=== PATIENT | male | born 1945 | race Caucasian/White ===

== ENCOUNTER 2016-08-26 11:38 | Day surgery (SDC) | payer MEDICARE, BC ==
[~2016-08-26 11:38] MED LIST: CLINDAMYCIN PHOSPHATE 300 MG in DEXTROSE 5 % IN WATER 50 ML IV PRN; RINGERS SOLUTION,LACTATED 1,000 ML IV PRN
--- OUTSIDE RECORDS SUMMARY | 2016-08-26 11:42 | XMS REPORT | Continuity of Care Document ---
:1945 Author Organization [facility] ([facility]) Address [address] [place] [address] Phone [phone] Care Team Providers Name Role Phone Unavailable Primary Care Provider Unavailable Source Comments This disclosure is being made pursuant to the Care Everywhere program, applicable federal and state laws, and may not contain all informaitonavailable regarding this patient.[facility] ([facility]) Active Allergies and Adverse Reactions Not on File Current Medications Not on file Active Problems Not on file Social History Tobacco Use Types Packs/Day Years Used Date Never Assessed Plan of Care Health Maintenance Due Date Last Done Comments Hepatitis B Vaccine (1 of 3 - Primary Series) 1945 Tdap Vaccine 1955 Lipid Disorder Screening 1962 Td Vaccine 1962 Colonoscopy 1994 Prostate Cancer Screening 1994 Zoster Vaccine 2004 Pneumococcal Vaccine (1 of 2 - PCV13) 2009 Influenza Vaccine: Seasonal (#1) 12/10/2015 Results from Last 3 Months Not on file
[2016-08-26] MEDS ORDERED: RINGERS SOLUTION,LACTATED 1,000 ML IV ONE ×2 (12:08→14:30)
[2016-08-26] MEDS ORDERED: DEXAMETHASONE SOD PHOSPHATE 4 MG/ML VIAL IJ ONE (13:10)
[2016-08-26] MEDS ORDERED: BUPIVACAINE HCL 50 ML VIAL IJ ONE (13:10)
[2016-08-26] MEDS ORDERED: BUPIVACAINE HCL/EPINEPHRINE 50 ML VIAL IJ ONE (13:10)
[2016-08-26] MEDS ORDERED: HYDROcodone/ACETAMINOPHEN 1 EACH TABLET PO PRN (14:45)
[2016-08-26] MEDS ORDERED: PROCHLORPERAZINE EDISYLATE 5 MG/ML VIAL IM PRN (14:45)
[2016-08-26 15:26] VITALS: BP 126/62
== END 2016-08-26 11:39 | disposition home or self-care (01) ==
LOC: AMB 11:38
PROVIDERS: ATTEND Podiatrist
PROC: 0QBP0ZZ Excision of Left Metatarsal, Open Approach (ICD-10-PCS; principal; 2016-08-26 13:00)
DX: M21.622 Bunionette of left foot (principal); I10 Essential (primary) hypertension; K50.90 Crohn's disease, unspecified, without complications; L40.9 Psoriasis, unspecified; Z87.891 Personal history of nicotine dependence; Z68.37 Body mass index [BMI] 37.0-37.9, adult

== ENCOUNTER 2018-12-20 06:16 | Inpatient (IN) ==
--- NOTE | 2018-12-01 14:19 | ANES ---
Anesthesia Pre Procedure Eval HOME MEDICATIONS alprazolam 0.25 mg tablet 0.25 mg PO DAILY PRN #30 tab 12/09/17 [Last Taken Unknown] metoprolol tartrate 25 mg tablet 25 mg PO BID 30 Days #60 tab 12/09/17 [Last Taken Unknown] warfarin 2 mg tablet 4 mg PO DAILY 90 Days #180 tab 12/09/17 [Last Taken 04/26/18 08:00] allopurinol 300 mg tablet 300 mg PO DAILY #90 tab 09/27/18 [Last Taken Unknown] enalapril 10 mg-hydrochlorothiazide 25 mg tablet 1 tab PO DAILY #90 tab 09/27/18 [Last Taken Unknown] omeprazole 40 mg capsule,delayed release 40 mg PO DAILY PRN #90 cap 10/07/18 [Last Taken Unknown] mesalamine ER 0.375 gram capsule,extended release 24 hr 0.75 g PO BID 90 Days #360 cap 10/27/18 [Last Taken Unknown] escitalopram 10 mg tablet 10 mg PO DAILY #30 tab 11/16/18 [Last Taken Unknown] Allergies/Adverse Reactions: Allergies Allergy/AdvReac Type Severity Reaction Status Date / Time Penicillins Allergy Intermediate SWOLLEN Verified 11/30/18 13:01 LIPS, HIVES caffeine AdvReac Mild Diarrhea Verified 11/30/18 13:01 - Planned Procedure Planned Procedure: Left TKA 12/20, Right TKA 12/22 Medication List Reviewed:: Yes Allergies Verified: Yes Medical History (Updated 11/30/18 @ 13:14 by Casimiro Farias MD) Left foot pain (Acute) Onset Date: Unknown Hypertension (Acute) Onset Date: Unknown Crohn disease (Chronic) Onset Date: Unknown Anxiety Onset Date: Unknown Bilateral knee pain Onset Date: Unknown Bunionectomy of Left 5th Toe Degenerative joint disease involving multiple joints Onset Date: Unknown Bilateral knee Gout Paroxysmal A-fib Onset Date: ~11/2017 Psoriasis Onset Date: Unknown Right foot pain Onset Date: ~2017 Arthritis Onset Date: Unknown History of stress test Onset Date: ~05/20/16 Surgical History (Updated 12/01/18 @ 08:18 by Brandi Joyner RN) History of bunionectomy Onset Date: ~[address] Orellana S/P bunionectomy Onset Date: ~04/30/18 Excision of right fifth metatarsal head Dr. Farias H/O colonoscopy Onset Date: ~03/27/15 Dr. Woodson polyp biopsy: hyperplastic polyp, rectum biopsy; patchy and focal mild active colitis with cryptitis; 2018- Neradha H/O tympanomastoidectomy Onset Date: ~06/03/16 Right - Dr. Whelan Family History (Updated 11/09/17 @ 13:07 by Chaparrita Gomez RN) Mother , late in her late 60's Lung cancer Father - Family Anesthesia History Family History:: no untoward family reactions to anesthesia, no familial bleeding tendencies, no family history of clotting disorders, no family history of premature - Airway/Neck/Teeth Within Normal Limits:: Yes Teeth Condition: intact Mallampatti Score: 1 Thyromental (T-M) distance: > 6 cm Mandibulo Hyoid distance: > 3 cm - Respiratory Smoking Status: Former smoker Discussed smoking cessation including day of surgery: No Sleep Apnea currently treated: No Sleep Apnea by current assessment: No Discussed Risks/Treatment of TIM: No - Cardiovascular Tolerate Activity: Fair Heart Sounds: S1 & S2, Regular - Anesthesia Assessment and Plan ASA Class: PS, III Anesthesia Type Plan: Block - Ultrasound guided adductor canal nerve block for postop analgesia, Spinal
[~2018-12-20 06:16] MED LIST changes: -CLINDAMYCIN PHOSPHATE 300 MG in DEXTROSE 5 % IN WATER 50 ML IV PRN; +MORPHINE SULFATE 15 MG TABLET.SA PO PRN; -RINGERS SOLUTION,LACTATED 1,000 ML IV PRN; +ROPIVACAINE HCL/PF 100 MG, EPINEPHrine 0.2 MG, KETOROLAC TROMETHAMINE 30 MG in NORMAL S... IJ PRN; +TRANEXAMIC ACID 1,000 MG in NORMAL SALINE 100 ML IV PRN; +ceFAZolin SODIUM 1 GM VIAL IV PRN
[2018-12-20 07:02] LABS: INR 1.22 INR (0.92-1.08)
[2018-12-20] MEDS: RINGER'S SOLUTION,LACTATED 1,000 ML IV PRN ×4 (07:04→20:02)
[2018-12-20] MEDS ORDERED: ceFAZolin SODIUM 1 GM VIAL IV PRN (07:42)
[2018-12-20] MEDS ORDERED: ONDANSETRON HCL/PF 2 MG/ML VIAL IV PRN (09:38)
[2018-12-20] MEDS ORDERED: ZOLPIDEM TARTRATE 5 MG TABLET PO PRN (09:38)
[2018-12-20] MEDS ORDERED: ACETAMINOPHEN 500 MG TABLET PO PRN (09:38)
[2018-12-20] MEDS ORDERED: MORPHINE SULFATE 2 MG/ML DISP.SYRIN IV PRN (09:38)
[2018-12-20] MEDS ORDERED: diphenhydrAMINE HCL 50 MG/ML VIAL IV PRN (09:38)
[2018-12-20] MEDS ORDERED: MAG HYDROX/ALUMINUM HYD/SIMETH 30 ML UDC PO PRN (09:38)
[2018-12-20] MEDS ORDERED: PANTOPRAZOLE SODIUM 40 MG TABLET.EC PO PRN (09:41)
[2018-12-20] MEDS ORDERED: ALPRAZolam 0.25 MG TABLET PO PRN (09:41)
[2018-12-20] MEDS ORDERED: KETOROLAC TROMETHAMINE 15 MG/ML VIAL IV SCH (09:45)
--- NOTE | 2018-12-20 09:45 | OR ---
Operative Report - Dictated Report Narrative: Date: 12/20/2018 Preoperative diagnosis: Left knee degenerative joint disease. Postoperative diagnosis: Left knee degenerative joint disease. Procedure: Left total knee arthroplasty. Surgeon: Casimiro Farias M.D. Communications Coordinator: Ken Nieves PA-C (provided and essential set of skilled, educated hands that assisted with transfer, positioning, prepping, draping, manipulation, retraction, placement of jigs, injection, insertion of implants, irrigation, closure wounds, and dressings all of which could not be performed by the available surgical crew) Anesthesia: Spinal with regional block and local periarticular joint injection. Complications: None Specimens: Bone. Estimated blood loss: Minimal. Tourniquet time: 90 Minutes at 350 millimeters of mercury. Retained implants: Depuy Attune size 8 left lugged cemented posterior stabilized femoral component. Size 7 fixed-bearing cemented tibial platform. 8 by 5 millimeter posterior stabilized cross-linked tibial insert. 38 millimeter medialized patella button. Indications: Mr. Joseph is a 73-year-old gentleman who has had long-standing left knee pain and arthrosis. This patient was followed in my clinic for period of time with significant complaints of left knee pain consistent with arthritic changes. He had failed conservative measures including, but not limited to, activity modification, passage of time, medications, and other conservative measures. Patient wished to proceed with surgical treatment. The risks, benefits, and alternatives were discussed in clinic. The risks of , blood clots, bleeding, infection, nerve/tendon blood vessel/ injury, malposition of components, intraoperative fracture, postoperative limited range of motion, persistent pain, failure of components, and need for additional procedures. Patient wished to proceed consent was obtained after answering all questions. Procedure: After marking the correct extremity on the floor, the patient was taken to the operating room. A timeout was performed. IV antibiotics consisting of Ancef were administered prior to the procedure. A regional followed by spinal anesthetic was induced by anesthesia, per my request, on the operative table with all bony prominences well-padded. Herrera catheter was placed, and a bump was placed under the operative side buttock. SCDs and TOMAS hose were utilized on the nonoperative leg. A well-padded tourniquet was applied to the operative thigh. The operative leg was then pre-scrubbed with alcohol, prepped, and draped in a standard sterile fashion. After exsanguinating the extremity with an Esmarch bandage, the tourniquet was inflated. After marking out the anterior knee for standard incision centered over the patella, the skin was incised and dissected down to the joint retinaculum. The joint retinaculum was marked out as well as the horizontal axis of the patella, and a standard medial parapatellar arthrotomy was then made. The most proximal aspect of the quadriceps tendon and the patella tendon insertion were protected from release. A partial synovectomy was performed as well as a resection of the infrapatellar fat pad. The distal femoral fat pad proximal to the trochlea was also resected using cautery. The soft tissues were elevated off the medial aspect of the proximal tibia using a Lawson elevator ensuring that we did not transect the medial collateral ligament. Upon initial evaluation range of motion was approximately 0 degrees to 130 degrees of flexion. There were signs of advanced arthrosis in the medial and patellofemoral greater than lateral joint spaces. There were large marginal osteophytes which were removed with a rongeur. The knee was hyperflexed and the patella was tucked laterally. Protecting the surrounding soft tissues with Homans, an entry drill was placed down the femoral canal using Whitesides line for guidance into the entry point. The intramedullary femoral alignment johann was utilized in order to cut the distal femur in 5 degrees of valgus resecting 10 millimeters of bone. Next the distal femur was sized to a size 8. A posterior referencing guide was utilized to place the distal femoral cutting block in 3 degrees of external rotation. This was pinned into place. The rotation was confirmed both visually and based on anatomic landmarks. The 4 in 1 cutting jig of the appropriate size was utilized in order to make all bony cuts. The angle wing was used to ensure no notching. Retractors were utilized in order to protect surrounding soft tissues. This cut did not result in any excessive notching. We then cut the box centered over the distal femur. This allowed for resection of the anterior and posterior cruciate ligaments. I then turned my attention to the preparation of the tibia. Using an extra medullary tibial alignment johann, 2 millimeters of bone was resected off the medial articular surface. This was made perpendicular to the mechanical axis of the joint with the alignment johann centered over the ankle mortise. The alignment johann was checked and was noted to be parallel to the mechanical axis, centered over the medial one third of the tibial tubercle, paralleling the anterior surface of the tibia. We then turned our attention to the remaining meniscus and soft tissues. These were removed while protecting the surrounding ligaments and soft tissues. The marginal osteophytes off the anterior, posterior, medial, lateral aspects of the femur and tibia were removed. The tibia was sized out to a size 7. Next the tibia was drilled and punched in an externally rotated position. Next the trial femur and a series of tibial inserts were utilized in order to allow for full extension and maximal flexion. It was found that a 5 millimeter insert gave the best range of motion and stability at multiple flexion points as well as at full extension there was less than 2 mm of gapping both medially and laterally. There is minimal anterior translation with the knee at 90 degrees of flexion and no signs of being able to dislocate the knee. The patella was then prepared. The initial thickness was 23 millimeters. This was reamed down to 13 millimeters parallel to the anterior surface of the patella. It was sized out to a size 38 medialized patella button. This was then drilled and trialed. Without any medial restraint the patella tracked appropriately and did not sublux or dislocate. At this point, it was felt these were the appropriate sized implants, and all trials were removed. The standard periarticular joint injection consisting of ropivacaine, Toradol, and epinephrine were injected into the periarticular joint tissues. The bony surfaces were thoroughly irrigated with a pulsatile-suction saline irrigation device. A bone plug from the prior resected anterior chamfer cut was placed into the drill hole at the distal femur. The bony surfaces were then dried in preparation for placement of the implants. The cement was vacuum mixed per the automotive parts person's instructions. The cement was placed on the dry bony surfaces and posterior aspect of the implants. The implants were impacted into place, removing all extruded cement. At this point anesthesia administered tranexamic acid per protocol intravenously. The knee was placed in extension with axial loading with the trial insert while the cement cured. Once the cement cured, all remaining extruded cement was removed. The knee was placed through a range of motion with the trial insert to ensure appropriate range of motion and stability. Final range of motion was approximately 0 to 120 degrees. The knee was again thoroughly irrigated with pulsatile saline lavage. The final polyethylene insert was then impacted into place ensuring no retained soft tissues. The remaining periarticular joint injection was injected. A medium Hemovac drain was placed exiting superior laterally. The knee was then placed over a triangle and the arthrotomy was closed with interrupted #1 Vicryl after thoroughly irrigating the joint. The deep and subcutaneous tissues were closed with interrupted 0 and 3-0 Vicryl respectively. Skin was closed with a running subcutaneous 3-0 Monocryl and Prineo Dermabond dressing. 4 x 4's, Sof-Rol, and a full leg Paulino wrap were applied. All sponge, needle, blade, and instrument counts were correct prior to closing the wounds. Postoperative condition: The patient was awoken and transferred to the postanesthesia care unit in stable condition. Plan is to be admitted to the inpatient medical/surgical floor postoperatively for 24 hours of IV antibiotics, physical therapy, occupational therapy, and medical comanagement. Patient will be weightbearing as tolerated with range of motion as tolerated. DVT prophylaxis will be with SCDs, TOMAS hose, and pharmacological anticoagulation. Plan for his right staged bilateral knee arthroplasty in 2 days.
--- NOTE | 2018-12-20 10:13 | ANES ---
Post Anesthesia Discharge - Transfer of Care Transfer of Care handoff given to nurse: Yes - Discharge from PACU Discharge from PACU when meets criteria: Yes - Discharge to ASU Discharge to ASU-no complications/pt stable: Yes
[2018-12-20] MEDS ORDERED: HYDROmorphone HCL 1 MG/ML DISP.SYRIN IV PRN (10:16)
[2018-12-20] MEDS ORDERED: NALOXONE HCL 0.4 MG/ML VIAL IV PRN (10:16)
--- NOTE | 2018-12-20 10:16 | ANES ---
Anesthesia Procedure Note Procedure Note: ANESTHESIA PROCEDURE NOTE Date of Procedure: 12/20/2018. Time of procedure: 729. Performed by: Adriano Hancock CRNA Piano Builder: None. Preprocedure diagnosis: Left knee degenerative joint disease. Post procedure diagnosis: Same. Procedure: Left ultrasound guided adductor canal block for postoperative analgesia. Indications: The patient is a 73-year-old male, requesting left ultrasound- guided abductor canal block for postoperative analgesia related to left total knee arthroplasty. Findings: See below. Details of the procedure: The tissue over the intended target site was cleansed with ChloraPrepand draped in a sterile fashion. 2 ml Lidocaine 1 % was infiltrated to the skin and subcutaneous tissue at the intended target site. Under sterile technique and ultrasound guidance a 18-gauge Tuohy needle was inserted through the left sartorius muscle to the saphenous nerve just anterior and medial to the superficial femoral artery and vein. 15 mL's of 0.5% bupivacaine was injected after negative aspiration for blood. Needle tip and spread of local anesthetic surrounding the saphenous nerve was observed throughout the injection with real time ultrasound visualization. The Tuohy needle was then removed intact. No complications were noted. The images were retained in the Hospital medical database. EBL: Minimal. Fluids: N/A. Specimen: N/A. Post procedure condition: The patient tolerated the procedure well. No complications were noted. Thank you for this consultation. Adriano Hancock CRNA
[2018-12-20] MEDS: DEXTROSE 5%-LACTATED RINGERS 1,000 ML IV PRN (10:59)
[2018-12-20] MEDS: ceFAZolin SODIUM 1 GM in DEXTROSE 5 % IN WATER 100 ML IV SCH ×6 (10:59→22:52)
[2018-12-20] MEDS: oxyCODONE HCL/ACETAMINOPHEN 1 TAB TABLET PO PRN ×3 (11:05→20:50)
[2018-12-20] MEDS: MESALAMINE 0.75 GM PO SCH (20:49)
[2018-12-20] MEDS: METOPROLOL TARTRATE 25 MG TABLET PO SCH (20:49)
[2018-12-20] MEDS: SENNOSIDES/DOCUSATE SODIUM 1 TAB TABLET PO SCH (20:50)
[2018-12-20] MEDS: MORPHINE SULFATE 15 MG TABLET.SA PO SCH (20:50)
[2018-12-21] MEDS: oxyCODONE HCL/ACETAMINOPHEN 1 TAB TABLET PO PRN ×2 (04:18→19:14)
[2018-12-21] MEDS: DEXTROSE 5%-LACTATED RINGERS 1,000 ML IV PRN (04:51)
[2018-12-21 05:25] LABS: Hematocrit 32.4 % (42.0-52.0); Hemoglobin 10.4 gm/dL (13.5-18.0); Mean Cell Volume 101.9 fl (78-100); Mean Corpuscular Hemoglobin 32.7 pg (27-31); Mean Corpuscular Hgb Conc 32.1 g/dl (32-36); Mean Platelet Volume 10.9 fl (8-11.3); Platelet Count 178 K/mm3 (150-450); Red Blood Count 3.18 M/mm3 (4.7-6.0); Red Cell Distribution Width 13.7 % (11.5-14.0); White Blood Count 9.8 K/mm3 (4.0-10.5)
[2018-12-21 05:33] LABS: Anion Gap 9.9 mmol/L (6.8-13.8); BUN/Creatinine Ratio 19.4 (9.0-21.6); Calcium * 8.3 mg/dL (7.9-10.9); Carbon Dioxide 29.1 mmol/L (24-32.6); Estimated Creat Clear 33.8
--- NOTE | 2018-12-21 08:03 | PN ---
Subjective - Date and Time Seen Date: 12/21/18 Time: 07:57 Subjective Narrative: Patient reports he is doing well. He reports his pain is controlled. He reports he did not sleep very well last night but he felt this was due to irritation in his throat. He reports no difficulty getting up to chair this morning. He has no other complaints. Objective Objective Narrative: Bandages clean dry and intact. Drain intact. Neurovascular intact left lower extremity. Calf is supple. Labs reviewed. Vital signs are stable. - Vitals Vitals: Last Vital Signs Temp 36.7 C 12/21/18 06:56 Pulse 65 12/21/18 06:56 Resp 20 12/21/18 06:56 BP 105/55 12/21/18 06:56 Pulse Ox 97 12/21/18 06:56 - Abnormal Lab Findings Abnormal Lab Findings: Abnormal Lab Results 12/21/18 12/21/18 Range/Units 05:24 05:24 RBC 3.18 L (4.7-6.0) M/mm3 Hgb 10.4 L (13.5-18.0) gm/dL Hct 32.4 L (42.0-52.0) % MCV 101.9 H (78-100) fl MCH 32.7 H (27-31) pg BUN 37 H (6-23) mg/dL Creatinine 1.91 H (0.4-1.4) mg/dL Est GFR (Non-Af Amer) 37 L (60-130) mL/min Random Glucose 113 H (70-110) mg/dL - Exam Constitutional: Present: Alert, Oriented x3, Cooperative, No distress Cauti Physician Documentation - Urinary Catheter Management Urethral (Herrera) Date of Insertion: 12/20/18 Time of Insertion: 08:00 Assessment/Plan - Problems/Diagnosis (1) Status post total left knee replacement Problem: Acute Narrative: PT, anticoagulation, TOMAS davide, pain control, patient is scheduled to have his right knee replaced tomorrow, will leave in Herrera catheter, pull drain from left knee today and dressing change (2) Acute blood loss anemia Problem: Acute Narrative: Observation (3) Acid reflux Problem: Chronic (4) Hiatal hernia with GERD Problem: Chronic (5) Atrial fibrillation Problem: Resolved Qualifiers: (6) Osteoarthritis of knee Problem: Chronic Qualifiers: (7) Hypertension Problem: Chronic Qualifiers: (8) Renal insufficiency Problem: Acute Narrative: Observation repeat labs
[2018-12-21] MEDS: METOPROLOL TARTRATE 25 MG TABLET PO SCH ×2 (08:10→20:57)
[2018-12-21] MEDS: ESCITALOPRAM OXALATE 10 MG TAB PO SCH (08:57)
[2018-12-21] MEDS: ENOXAPARIN SODIUM 40 MG/0.4 ML SYRG SC SCH (08:57)
[2018-12-21] MEDS: ALLOPURINOL 300 MG TABLET PO SCH (08:57)
[2018-12-21] MEDS: HYDROCHLOROTHIAZIDE 25 MG TABLET PO SCH (08:57)
[2018-12-21] MEDS: ENALAPRIL MALEATE 5 MG TABLET PO SCH (08:57)
[2018-12-21] MEDS: MESALAMINE 0.75 GM PO SCH ×2 (08:58→20:56)
[2018-12-21] MEDS: MORPHINE SULFATE 15 MG TABLET.SA PO SCH ×2 (09:01→21:01)
[2018-12-21] MEDS: SENNOSIDES/DOCUSATE SODIUM 1 TAB TABLET PO SCH (20:57)
[2018-12-22] MEDS: RINGER'S SOLUTION,LACTATED 1,000 ML IV PRN ×3 (00:47→09:45)
[2018-12-22] MEDS: oxyCODONE HCL/ACETAMINOPHEN 1 TAB TABLET PO PRN ×2 (02:40→16:29)
[2018-12-22] MEDS ORDERED: MORPHINE SULFATE 15 MG TABLET.SA PO PRN (06:00)
[2018-12-22] MEDS ORDERED: TRANEXAMIC ACID 1,000 MG in NORMAL SALINE 100 ML IV PRN (06:00)
[2018-12-22] MEDS ORDERED: ceFAZolin SODIUM/DEXTROSE,ISO 2 GM/50 ML BAG IV ONE (06:00)
[2018-12-22] MEDS ORDERED: ceFAZolin SODIUM 1 GM VIAL IV PRN ×2 (06:00)
[2018-12-22] MEDS ORDERED: ROPIVACAINE HCL/PF 100 MG, EPINEPHrine 0.2 MG, KETOROLAC TROMETHAMINE 30 MG in NORMAL S... IJ PRN (06:00)
[2018-12-22] MEDS ORDERED: RINGER'S SOLUTION,LACTATED 1,000 ML IV PRN (06:00)
[2018-12-22] MEDS: MORPHINE SULFATE 15 MG TABLET.SA PO SCH ×2 (07:30→20:48)
[2018-12-22] MEDS ORDERED: PANTOPRAZOLE SODIUM 80 MG in NORMAL SALINE 100 ML IV ONE (08:44)
[2018-12-22] MEDS ORDERED: DEXTROSE 5%-LACTATED RINGERS 1,000 ML IV PRN (10:07)
--- NOTE | 2018-12-22 10:16 | OR ---
Operative Report - Dictated Report Narrative: Date: 12/22/2018 Preoperative diagnosis: Right knee degenerative joint disease. Postoperative diagnosis: Right knee degenerative joint disease. Procedure: Right total knee arthroplasty. Surgeon: Casimiro Farias M.D. Studio Owner: Ken Nieves PA-C (provided and essential set of skilled, educated hands that assisted with transfer, positioning, prepping, draping, manipulation, retraction, placement of jigs, injection, insertion of implants, irrigation, closure wounds, and dressings all of which could not be performed by the available surgical crew) Anesthesia: General with regional block and local periarticular joint injection. Complications: None Specimens: Bone. Estimated blood loss: 50 ml. Tourniquet time: 100 Minutes at 350 millimeters of mercury. Retained implants: Depuy Attune size 8 right lugged cemented posterior stabilized femoral component. Size 7 fixed-bearing cemented tibial platform. 8 by 7 millimeter posterior stabilized cross-linked tibial insert. 38 millimeter medialized patella button. Indications: Mr. Joseph is a 73-year-old gentleman who returns today for a staged bilateral total knee arthroplasty. He has had long-standing right knee pain and arthrosis. This patient was followed in my clinic for period of time with significant complaints of right knee pain consistent with arthritic changes. He had failed conservative measures including, but not limited to, activity modification, passage of time, medications, and other conservative measures. Patient wished to proceed with surgical treatment. The risks, benefits, and alternatives were discussed in clinic. The risks of , blood clots, bleeding, infection, nerve/tendon blood vessel/ injury, malposition of components, intraoperative fracture, postoperative limited range of motion, persistent pain, failure of components, and need for additional procedures. Patient wished to proceed consent was obtained after answering all questions. Procedure: After marking the correct extremity on the floor, the patient was taken to the operating room. A timeout was performed. IV antibiotics consisting of Ancef were administered prior to the procedure. A general followed by spinal anesthetic was induced by anesthesia, per my request, on the operative table with all bony prominences well-padded. Herrera catheter was already in place, and a bump was placed under the operative side buttock. SCDs and TOMAS hose were utilized on the nonoperative leg. A well-padded tourniquet was applied to the operative thigh. The operative leg was then pre-scrubbed with alcohol, prepped, and draped in a standard sterile fashion. After exsanguinating the extremity with an Esmarch bandage, the tourniquet was inflated. After marking out the anterior knee for standard incision centered over the patella, the skin was incised and dissected down to the joint retinaculum. The joint retinaculum was marked out as well as the horizontal axis of the patella, and a standard medial parapatellar arthrotomy was then made. The most proximal aspect of the quadriceps tendon and the patella tendon insertion were protected from release. A partial synovectomy was performed as well as a resection of the infrapatellar fat pad. The distal femoral fat pad proximal to the trochlea was also resected using cautery. The soft tissues were elevated off the medial aspect of the proximal tibia using a Lawson elevator ensuring that we did not transect the medial collateral ligament. Upon initial evaluation range of motion was approximately 5 degrees to 120 degrees of flexion. There were signs of advanced arthrosis in the medial, lateral, and patellofemoral joint spaces. There were large marginal osteophytes which were removed with a rongeur. The knee was hyperflexed and the patella was tucked laterally. Protecting the surrounding soft tissues with Homans, an entry drill was placed down the femoral canal using Whitesides line for guidance into the entry point. The intramedullary femoral alignment johann was utilized in order to cut the distal femur in 5 degrees of valgus resecting 10 millimeters of bone. Next the distal femur was sized to a size 8. A posterior referencing guide was utilized to place the distal femoral cutting block in 3 degrees of external rotation. This was pinned into place. The rotation was confirmed both visually and based on anatomic landmarks. The 4 in 1 cutting jig of the appropriate size was utilized in order to make all bony cuts. The angle wing was used to ensure no notching. Retractors were utilized in order to protect surrounding soft tissues. This cut did not result in any excessive notching. We then cut the box centered over the distal femur. This allowed for resection of the anterior and posterior cruciate ligaments. I then turned my attention to the preparation of the tibia. Using an extra medullary tibial alignment johann, 5 millimeters of bone was resected off the medial articular surface. This was made perpendicular to the mechanical axis of the joint with the alignment johann centered over the ankle mortise. The alignment johann was checked and was noted to be parallel to the mechanical axis, centered over the medial one third of the tibial tubercle, paralleling the anterior surface of the tibia. We then turned our attention to the remaining meniscus and soft tissues. These were removed while protecting the surrounding ligaments and soft tissues. The marginal osteophytes off the anterior, posterior, medial, lateral aspects of the femur and tibia were removed. The tibia was sized out to a size 7. Next the tibia was drilled and punched in an externally rotated position. Next the trial femur and a series of tibial inserts were utilized in order to allow for full extension and maximal flexion. It was found that a 7 millimeter insert gave the best range of motion and stability at multiple flexion points as well as at full extension there was less than 2 mm of gapping both medially and laterally. There is minimal anterior translation with the knee at 90 degrees of flexion and no signs of being able to dislocate the knee. The patella was then prepared. The initial thickness was 24 millimeters. This was reamed down to 14 millimeters parallel to the anterior surface of the patella. It was sized out to a size 38 medialized patella button. This was then drilled and trialed. Without any medial restraint the patella tracked appropriately and did not sublux or dislocate. At this point, it was felt these were the appropriate sized implants, and all trials were removed. The standard periarticular joint injection consisting of ropivacaine, Toradol, and epinephrine were injected into the periarticular joint tissues. The bony surfaces were thoroughly irrigated with a pulsatile-suction saline irrigation device. A bone plug from the prior resected anterior chamfer cut was placed into the drill hole at the distal femur. The bony surfaces were then dried in preparation for placement of the implants. The cement was vacuum mixed per the comb fixer's instructions. The cement was placed on the dry bony surfaces and posterior aspect of the implants. The implants were impacted into place, removing all extruded cement. At this point anesthesia administered tranexamic acid per protocol intravenously. The knee was placed in extension with axial loading with the trial insert while the cement cured. Once the cement cured, all remaining extruded cement was removed. The knee was placed through a range of motion with the trial insert to ensure appropriate range of motion and stability. Final range of motion was approximately 0 to 120 degrees. The knee was again thoroughly irrigated with pulsatile saline lavage. The final polyethylene insert was then impacted into place ensuring no retained soft tissues. The remaining periarticular joint injection was injected. A medium Hemovac drain was placed exiting superior laterally. The knee was then placed over a triangle and the arthrotomy was closed with interrupted #1 Vicryl after thoroughly irrigating the joint. The deep and subcutaneous tissues were closed with interrupted 0 and 3-0 Vicryl respectively. Skin was closed with a running subcutaneous 3-0 Monocryl and Prineo Dermabond dressing. 4 x 4's, Sof-Rol, and a full leg Paulino wrap were applied. All sponge, needle, blade, and instrument counts were correct prior to closing the wounds. Postoperative condition: The patient was awoken and transferred to the ostanesthesia care unit in stable condition. Plan is to be admitted to the inpatient medical/surgical floor postoperatively for 24 hours of IV antibiotics, physical therapy, occupational therapy, and medical comanagement. Patient will be weightbearing as tolerated with range of motion as tolerated. DVT prophylaxis will be with SCDs, TOMAS hose, and pharmacological anticoagulation. Anticipated hospital stay is approximately 1-3 days.
--- NOTE | 2018-12-22 10:24 | ANES ---
Anesthesia Procedure Note Procedure Note: ANESTHESIA PROCEDURE NOTE Date of Procedure: [12/22/2018 Time of procedure: 7:55 AM. Performed by: SOURAV Staples CRNA, MSN Tile Layer: Brandi Joyner RN. Preprocedure diagnosis: Post right total knee arthroplasty pain. Post procedure diagnosis: Same. Procedure: Right adductor Canal Block. Indications: Post right total knee arthroplasty pain relief. Findings: See below. Details of the procedure: The patient was brought to OR #4 and placed in supine position. The patient's right femoral area to the knee was prepped with chlorhexidine and using ultrasound guidance the right femoral artery and nerve was identified and then followed to the level of the adductor canal. Lidocaine 1% was infiltrated to the skin of the intended injection site. Under ultrasound guidance the saphenous nerve was approached with visualization of a 4 inch shielded block needle. Once saphenous nerve was identified with proximity to the needle tip, the saphenous nerve was surrounded with 20 mL bupivacaine 0.25% with 1-200,000 epinephrine. Please see radiology/ultrasound report for details and retained images of the procedure. EBL: 0 Fluids: N/A. Specimen: N/A. Post procedure condition: The patient tolerated the procedure well. No complications were noted. Thank you for this consultation. Diogenes Freeman CRNA, ARNP, MSN
--- NOTE | 2018-12-22 10:25 | ANES ---
Post Anesthesia Discharge - Transfer of Care Transfer of Care handoff given to nurse: Yes - Discharge from PACU Discharge from PACU when meets criteria: Yes - Awake and comfortable.
--- NOTE | 2018-12-22 11:00 | ANES ---
Post Anesthesia Assessment - Vital Signs Vitals: Last Vital Signs Temp 36.4 C 12/22/18 10:50 Pulse 79 12/22/18 10:50 Resp 16 12/22/18 10:50 BP 100/35 12/22/18 10:50 Pulse Ox 96 12/22/18 10:50 Airway Patency: Normal - Mental Status Level Of Consciousness: Awake, Alert, Appropriate - Pain Level Pain Score: 0 - N/V Assessment Nausea/Vomiting Presence: None Dehydration:: No
[2018-12-22] MEDS: DEXTROSE 5%-LACTATED RINGERS 1,000 ML IV PRN (11:01)
[2018-12-22] MEDS: HYDROCHLOROTHIAZIDE 25 MG TABLET PO SCH (11:14)
[2018-12-22] MEDS: ENALAPRIL MALEATE 5 MG TABLET PO SCH (11:15)
[2018-12-22] MEDS: MESALAMINE 0.75 GM PO SCH ×2 (11:15→20:49)
[2018-12-22] MEDS: METOPROLOL TARTRATE 25 MG TABLET PO SCH ×2 (11:15→20:49)
[2018-12-22] MEDS: ENOXAPARIN SODIUM 40 MG/0.4 ML SYRG SC SCH (11:23)
[2018-12-22] MEDS: ESCITALOPRAM OXALATE 10 MG TAB PO SCH (11:28)
[2018-12-22] MEDS: ALLOPURINOL 300 MG TABLET PO SCH (11:28)
[2018-12-22] MEDS: ceFAZolin SODIUM 1 GM in DEXTROSE 5 % IN WATER 100 ML IV SCH ×6 (11:28→23:50)
--- NOTE | 2018-12-22 15:37 | CONS ---
[facility] - General Date of Service: 12/22/18 Narrative: I was consulted to see the patient for aspiration after his second knee replacement surgery this week, the first surgery done two days prior. He had an episode of coffee ground emesis, and was wheezing. His blood pressure was low initially post op. At the time of my exam, he reports feeling tired. He does not have a persistent cough. He is not currently febrile, but his heart rate is borderline tachycardiac. He denies pulmonary diagnoses. Source: patient - History of Present Illness Timing/Duration: 1-3 hours Allergies/Adverse Reactions: Allergies Penicillins Allergy (Intermediate, Verified 12/20/18 06:29) SWOLLEN LIPS, HIVES caffeine Adverse Reaction (Mild, Verified 12/20/18 06:29) Diarrhea Home Medications: Home Medications Medication Instructions Recorded Last Taken alprazolam 0.25 mg tablet 0.25 mg PO DAILY PRN #30 tab 12/09/17 12/19/18 metoprolol tartrate 25 mg tablet 25 mg PO BID 30 Days #60 tab 12/09/17 12/20/18 warfarin 2 mg tablet 4 mg PO DAILY 90 Days #180 tab 12/09/17 12/15/18 allopurinol 300 mg tablet 300 mg PO DAILY #90 tab 09/27/18 12/19/18 enalapril 10 1 tab PO DAILY #90 tab 09/27/18 12/20/18 mg-hydrochlorothiazide 25 mg tablet omeprazole 40 mg capsule,delayed 40 mg PO DAILY PRN #90 cap 10/07/18 Unknown release mesalamine ER 0.375 gram 0.75 g PO BID 90 Days #360 cap 10/27/18 12/18/18 capsule,extended release 24 hr escitalopram 10 mg tablet 10 mg PO DAILY #30 tab 11/16/18 12/19/18 Procedures Closed [endoscopic] biopsy of large intestine (03/31/06) Closed [endoscopic] biopsy of rectum (03/21/02) Excision of Left Metatarsal, Open Approach (08/26/16) Medications - Medications Current Medications: Current Medications Allopurinol (Zyloprim) 300 mg PO DAILY [facility] Stop: 01/20/19 09:01 Last Admin: 12/22/18 11:28 Dose: 300 mg Documented by: Cefazolin Sodium (Ancef) 2 gm IV PRN PRN; Protocol PRN Reason: PERIOPERATIVE ANTIBIOTICS Stop: 12/22/18 23:00 Last Admin: 12/22/18 08:30 Dose: 2 gm Documented by: Enalapril Maleate (Vasotec) 10 mg PO DAILY [facility] Stop: 01/20/19 09:01 Last Admin: 12/22/18 11:15 Dose: Not Given Documented by: Escitalopram Oxalate (Lexapro) 10 mg PO DAILY [facility] Stop: 01/20/19 09:01 Last Admin: 12/22/18 11:28 Dose: 10 mg Documented by: Hydrochlorothiazide (Hydrodiuril) 25 mg PO DAILY [facility] Stop: 01/20/19 09:01 Last Admin: 12/22/18 11:14 Dose: Not Given Documented by: Dextrose/Lactated Ringer's (Dextrose 5%-Lr) 1,000 mls @ 125 mls/hr IV .Q8H PRN PRN Reason: HYDRATION Stop: 01/19/19 09:39 Last Admin: 12/22/18 11:01 Dose: 125 mls/hr Documented by: Ropivacaine 100 mg/Epinephrine HCl 0.2 mg/Ketorolac Tromethamine 30 mg/Sodium Chloride 111.2 mls @ 0.01 mls/hr IJ PRN PRN PRN Reason: JOINT INJECTION Stop: 12/22/18 23:59 Last Admin: 12/22/18 09:24 Dose: 0.01 mls/hr Documented by: Tranexamic Acid 1,000 mg/ (Sodium Chloride) 110 mls @ 600 mls/hr IV PRN PRN PRN Reason: blood loss reduction Stop: 12/22/18 23:00 Last Infusion: 12/22/18 09:44 Dose: Infused Documented by: Lactated Ringer's (Lactated Ringers) 1,000 mls @ 125 mls/hr IV .Q8H PRN PRN Reason: HYDRATION Stop: 01/21/19 00:34 Last Infusion: 12/22/18 11:00 Dose: Infused Documented by: Cefazolin Sodium 1 gm/ (Dextrose/Water) 100 mls @ 200 mls/hr IV Q6H [facility]; Protocol Stop: 12/23/18 00:37 Last Admin: 12/22/18 11:28 Dose: 200 mls/hr Documented by: Metoprolol Tartrate (Lopressor) 25 mg PO BID [facility] Stop: 01/19/19 21:01 Last Admin: 12/22/18 11:15 Dose: Not Given Documented by: Morphine Sulfate (Ms Contin) 15 mg PO Q12H [facility] Stop: 01/21/19 21:01 Last Admin: 12/22/18 07:30 Dose: 15 mg Documented by: Mesalamine [Apriso] (0.75 G) 0.75 g PO BID [facility] Stop: 01/19/19 21:01 Last Admin: 12/22/18 11:15 Dose: Not Given Documented by: Oxycodone/Acetaminophen (Percocet 5 Mg/325 Mg) 2 tab PO Q4H PRN PRN Reason: Moderate Pain (pain scale 4-6) Stop: 01/19/19 09:39 Last Admin: 12/22/18 02:40 Dose: 2 tab Documented by: Senna/Docusate Sodium (Senokot-S) 2 tab PO HS [facility] Stop: 01/19/19 21:01 Last Admin: 12/21/18 20:57 Dose: 2 tab Documented by: Review of Systems - Review of Systems Generalized/Overall Review: Present: Fatigue. Absent: Fever Respiratory: Present: Cough. Absent: Shortness of Breath Cardiac: Absent: Chest Pain Abdominal: Absent: Nausea Musculoskeletal: Present: Joint Pain Neurological: Present: No Symptoms Reported Physical Examination - Exam Vital Signs: Vital Signs - Last Taken Temp 36.5 C 12/22/18 13:45 Pulse 105 H 12/22/18 14:45 Resp 16 12/22/18 13:45 BP 94/48 12/22/18 14:45 Pulse Ox 97 12/22/18 14:45 O2 Oxygen Delivery Method Room Air Constitutional: Present: Alert, Cooperative, No distress Respiratory: Present: normal breath sounds, no respiratory distress Cardiovascular/Chest: Present: regular rate, rhythm - HR 98 Abdomen: Present: Normal bowel sounds, soft, nontender Eye contact: Present: cooperative - Assessments/Findings (1) Aspiration into lower respiratory tract Diagnosis(s): Patient coughed and potentially aspirated in the OR this morning. CXR showed bilateral lower pulmonary opacities. He is borderline tachycardic, and oxygenating on room air. He has an allergy to PCNs, so will start clindamycin, for a 5 day course. Discussed regular use of the bedside incentive spirometer to decrease pneumonia. Problem: Acute Qualifiers: Encounter type: initial encounter Qualified Code(s): T17.800A - Unspecified foreign body in other parts of respiratory tract causing asphyxiation, initial encounter
[2018-12-22] MEDS: WARFARIN SODIUM 4 MG TABLET PO SCH (16:29)
[2018-12-22] MEDS: CLINDAMYCIN HCL 150 MG CAPSULE PO SCH ×2 (16:29→23:51)
[2018-12-22] MEDS: PANTOPRAZOLE SODIUM 40 MG TABLET.EC PO SCH (16:29)
[2018-12-22] MEDS ORDERED: WARFARIN SODIUM 5 MG TABLET PO SCH (17:00)
[2018-12-22] MEDS ORDERED: NORMAL SALINE 1,000 ML IV ONE (17:50)
[2018-12-22] MEDS: SENNOSIDES/DOCUSATE SODIUM 1 TAB TABLET PO SCH (20:48)
[2018-12-23] MEDS: DEXTROSE 5%-LACTATED RINGERS 1,000 ML IV PRN ×2 (03:44→11:20)
[2018-12-23] MEDS: oxyCODONE HCL/ACETAMINOPHEN 1 TAB TABLET PO PRN ×4 (03:46→20:41)
[2018-12-23 05:32] LABS: Mean Cell Volume 100.5 fl (78-100); Mean Corpuscular Hemoglobin 32.6 pg (27-31); Mean Corpuscular Hgb Conc 32.4 g/dl (32-36); Platelet Count 136 K/mm3 (150-450); Red Blood Count 2.15 M/mm3 (4.7-6.0); Red Cell Distribution Width 13.8 % (11.5-14.0); White Blood Count 11.5 K/mm3 (4.0-10.5)
[2018-12-23 05:38] LABS: Hematocrit 21.6 % (42.0-52.0)
[2018-12-23 05:49] LABS: BUN/Creatinine Ratio 25.1 (9.0-21.6); Calcium * 7.7 mg/dL (7.9-10.9); Carbon Dioxide 24.3 mmol/L (24-32.6); Potassium 4.3 mmol/L (3.4-4.6)
[2018-12-23] MEDS ORDERED: FUROSEMIDE 10 MG/ML VIAL IV ONE (07:35)
[2018-12-23 07:47] LABS: INR 1.22 INR (0.92-1.08)
[2018-12-23] MEDS: CLINDAMYCIN HCL 150 MG CAPSULE PO SCH ×3 (08:05→23:14)
[2018-12-23] MEDS: ALLOPURINOL 300 MG TABLET PO SCH (08:06)
[2018-12-23] MEDS: MORPHINE SULFATE 15 MG TABLET.SA PO SCH ×2 (08:56→20:45)
[2018-12-23] MEDS: MESALAMINE 0.75 GM PO SCH ×2 (09:08→20:45)
--- NOTE | 2018-12-23 09:09 | PN ---
Subjective - Date and Time Seen Date: 12/23/18 Time: 08:46 Subjective Narrative: Patient reports feeling similar to yesterday, maybe a little better. He still feels tired. He's increased his fluid intake. Is having difficulty swallowing dry foods, which is his baseline. He reports maybe having a little shortness of breath. He's having some hand swelling. Hgb decreased to 7.0 this morning, and PRBCs have been ordered. Objective - Review of Systems Generalized/Overall Review: Reports: Weakness Respiratory: Reports: Cough Cardiac: Reports: Edema. Denies: Chest Pain Abdominal: Denies: Vomiting Genitourinary Symptoms: Reports: No Symptoms Reported Musculoskeletal Complaints: Reports: Joint Pain - bilateral knee replacements done this week - Vitals Vitals: Last Vital Signs Temp 36.8 C 12/23/18 07:36 Pulse 83 12/23/18 08:04 Resp 22 H 12/23/18 07:36 BP 111/68 12/23/18 08:04 Pulse Ox 100 12/23/18 07:36 - Abnormal Lab Findings Abnormal Lab Findings: Abnormal Lab Results 12/23/18 12/23/18 12/23/18 Range/Units 05:25 05:25 05:25 WBC 11.5 H (4.0-10.5) K/mm3 RBC 2.15 L (4.7-6.0) M/mm3 Hgb 7.0 L* D (13.5-18.0) gm/dL Hct 21.6 L* D (42.0-52.0) % MCV 100.5 H (78-100) fl MCH 32.6 H (27-31) pg Plt Count 136 L (150-450) K/mm3 PT (9.1-10.7) Seconds INR (Anticoag Therapy) (0.92-1.08) INR BUN 60 H D (6-23) mg/dL Creatinine 2.39 H D (0.4-1.4) mg/dL Est GFR (Non-Af Amer) 28 L D (60-130) mL/min BUN/Creatinine Ratio 25.1 H (9.0-21.6) Random Glucose 146 H (70-110) mg/dL Calcium 7.7 L (7.9-10.9) mg/dL Crossmatch See Detail 08/15/19 Range/Units 05:25 WBC (4.0-10.5) K/mm3 RBC (4.7-6.0) M/mm3 Hgb (13.5-18.0) gm/dL Hct (42.0-52.0) % MCV (78-100) fl MCH (27-31) pg Plt Count (150-450) K/mm3 PT 12.0 H (9.1-10.7) Seconds INR (Anticoag Therapy) 1.22 H (0.92-1.08) INR BUN (6-23) mg/dL Creatinine (0.4-1.4) mg/dL Est GFR (Non-Af Amer) (60-130) mL/min BUN/Creatinine Ratio (9.0-21.6) Random Glucose (70-110) mg/dL Calcium (7.9-10.9) mg/dL Crossmatch - Exam Constitutional: Present: Alert, Cooperative Respiratory: Present: normal breath sounds, no respiratory distress. Absent: rhonchi Cardiovascular/Chest: Present: regular rate, rhythm - distant heart sounds Abdomen: Present: obese. Absent: nontender Extremity: Present: other - Mild edema of bilateral hands and wrists. Lower extremities wrapped in gauze Neurologic: Present: other - mild shaking Eye contact: Present: cooperative Cauti Physician Documentation - Urinary Catheter Management Urethral (Herrera) Date of Insertion: 12/20/18 Time of Insertion: 08:00 Assessment/Plan - Problems/Diagnosis (1) Aspiration into lower respiratory tract Problem: Acute Qualifiers: Encounter type: initial encounter Qualified Code(s): T17.800A - Unspecified foreign body in other parts of respiratory tract causing asphyxiation, initial encounter Narrative: Patient coughed in the OR yesterday, and may have aspirated. He's allergic to PCN, and was started on clindamycin. CXR showed bilateral pulmonary opacities. He is not currently displaying symptoms of pneumonia, but this may have been because antibiotics were started. Will continue 3 days of abx, and if he is oxygenating well, afebrile without a cough, can DC clindamycin. Aspiration could also cause pneumonitis without pneumonia. (2) Postoperative anemia Problem: Acute Narrative: Hemoglobin decreased to 7.0 this morning, and one unit PRBC was ordered. Recheck H&H one hour post transfusion. He had both knees replaced this week, and also has chronic renal disease at baseline. (3) Chronic renal disease, stage 3, moderately decreased glomerular filtration rate (GFR) between 30-59 mL/min/1.73 square meter Problem: Chronic Narrative: Baseline creatinine appears to be around 1.9, so he is not significantly different from baseline. BUN increased, and will need to ensure he is not showing any signs of GI bleed. (4) Hypocalcemia Problem: Acute Narrative: Calcium decreased to 7.7 today, but need to calculate corrected calcium for albumin. His po intake has been decreased, so his albumin is also likely low, and this may not be an accurate level. Albumin level pending with CMP.
[2018-12-23 09:33] LABS: Bilirubin, Total 0.3 mg/dL (0.0-1.1); Total Protein 4.2 gm/dL (6.2-8.2)
[2018-12-23] MEDS: PANTOPRAZOLE SODIUM 40 MG TABLET.EC PO SCH (11:02)
[2018-12-23] MEDS: HYDROCHLOROTHIAZIDE 25 MG TABLET PO SCH (11:02)
[2018-12-23] MEDS: ENALAPRIL MALEATE 5 MG TABLET PO SCH (11:02)
[2018-12-23] MEDS: ESCITALOPRAM OXALATE 10 MG TAB PO SCH (11:02)
[2018-12-23] MEDS: METOPROLOL TARTRATE 25 MG TABLET PO SCH ×2 (11:02→20:38)
[2018-12-23 12:23] LABS: Hematocrit 25.9 % (42.0-52.0); Hemoglobin 8.4 gm/dL (13.5-18.0)
[2018-12-23] MEDS: WARFARIN SODIUM 4 MG TABLET PO SCH (16:19)
--- NOTE | 2018-12-23 16:52 | PN ---
Subjective - Date and Time Seen Date: 12/23/18 Time: 07:45 Subjective Narrative: Subjective: Reports pain in his left knee and some difficulty sleeping. He reports being tired. He denies any significant shortness of breath. Was able to take a few steps with therapy. Tolerating by mouth intake. Denies any nausea or vomiting. Denies calf pain. Physical exam: Alert and oriented to person, place and time Generalized edema Bilateral lower extremity extremity: Palpable dorsalis pedis pulse. Sensation grossly intact to light touch. Dressings intact on the right, dry in the left. Able to flex and extend ankle and toes. No excessive drainage. Calf and thigh are soft and nontender. Assessment: Postop day 1 status post right total knee arthroplasty, postop day 3 status post left total knee arthroplasty. Plan: Due to the need for pain control, post-operative limited mobility, protection of the surgical site and joint, monitoring of the wound, and the management of chronic medical conditions, he requires continued inpatient care. Continue with physical and occupational therapy weightbearing as tolerated. Continue with anticoagulation. 24 hours postoperative prophylactic antibiotics as well as IV clindamycin for possible aspiration. Pain control with goal to rely on oral medications. Continue bowel regimen. Will need 6 weeks with walker or assitive device to protect joint while ambulating during the recovery process. Discharge planning. Discontinue drain and Herrera catheter. Appreciate medical assistance in management of his chronic conditions as well as his acute pulmonary issues. He was notably anemic today and he will be transfused. With his edema Lasix will be utilized under the orders of Dr. Monroe Objective - Vitals Vitals: Last Vital Signs Temp 36.8 C 12/23/18 14:42 Pulse 74 12/23/18 14:42 Resp 18 12/23/18 14:42 BP 129/60 12/23/18 14:42 Pulse Ox 100 12/23/18 14:42 - Abnormal Lab Findings Abnormal Lab Findings: Abnormal Lab Results 12/23/18 12/23/18 12/23/18 Range/Units 05:25 05:25 05:25 WBC 11.5 H (4.0-10.5) K/mm3 RBC 2.15 L (4.7-6.0) M/mm3 Hgb 7.0 L* D (13.5-18.0) gm/dL Hct 21.6 L* D (42.0-52.0) % MCV 100.5 H (78-100) fl MCH 32.6 H (27-31) pg Plt Count 136 L (150-450) K/mm3 PT (9.1-10.7) Seconds INR (Anticoag Therapy) (0.92-1.08) INR BUN 60 H D (6-23) mg/dL Creatinine 2.39 H D (0.4-1.4) mg/dL Est GFR (Non-Af Amer) 28 L D (60-130) mL/min BUN/Creatinine Ratio 25.1 H (9.0-21.6) Random Glucose 146 H (70-110) mg/dL Calcium 7.7 L (7.9-10.9) mg/dL ALT 6 L (19-67) U/L Alkaline Phosphatase 49 L (50-170) U/L Total Protein 4.2 L (6.2-8.2) gm/dL Albumin 2.0 L (3.4-5.0) gm/dl Crossmatch See Detail 12/23/18 12/23/18 Range/Units 05:25 12:19 WBC (4.0-10.5) K/mm3 RBC (4.7-6.0) M/mm3 Hgb 8.4 L (13.5-18.0) gm/dL Hct 25.9 L (42.0-52.0) % MCV (78-100) fl MCH (27-31) pg Plt Count (150-450) K/mm3 PT 12.0 H (9.1-10.7) Seconds INR (Anticoag Therapy) 1.22 H (0.92-1.08) INR BUN (6-23) mg/dL Creatinine (0.4-1.4) mg/dL Est GFR (Non-Af Amer) (60-130) mL/min BUN/Creatinine Ratio (9.0-21.6) Random Glucose (70-110) mg/dL Calcium (7.9-10.9) mg/dL ALT (19-67) U/L Alkaline Phosphatase (50-170) U/L Total Protein (6.2-8.2) gm/dL Albumin (3.4-5.0) gm/dl Crossmatch Cauti Physician Documentation - Urinary Catheter Management Urethral (Herrera) Date of Insertion: 12/20/18 Time of Insertion: 08:00 Date of Removal: 12/23/18 Time of Removal: 11:15 Assessment/Plan - Problems/Diagnosis (1) Status post total right knee replacement Problem: Acute (2) Acute blood loss anemia Problem: Acute (3) Aspiration into lower respiratory tract Problem: Acute Qualifiers: Encounter type: initial encounter Qualified Code(s): T17.800A - Unspecified foreign body in other parts of respiratory tract causing asphyxiation, initial encounter (4) Hypocalcemia Problem: Acute (5) Renal insufficiency Problem: Acute (6) Status post total left knee replacement Problem: Acute (7) Chronic renal disease, stage 3, moderately decreased glomerular filtration rate (GFR) between 30-59 mL/min/1.73 square meter Problem: Chronic (8) Anxiety Problem: Chronic (9) Acid reflux Problem: Chronic (10) Crohn disease Problem: Chronic Qualifiers: Gastrointestinal tract location: unspecified location Digestive disease complication type: without complication Qualified Code(s): K50.90 - Crohn's disease, unspecified, without complications (11) Hypertension Problem: Chronic Qualifiers: (12) Atrial fibrillation Problem: Chronic Qualifiers: (13) H/O right heart catheterization Problem: Chronic
[2018-12-23] MEDS: SENNOSIDES/DOCUSATE SODIUM 1 TAB TABLET PO SCH (20:41)
[2018-12-24] MEDS: oxyCODONE HCL/ACETAMINOPHEN 1 TAB TABLET PO PRN ×2 (04:56→16:45)
[2018-12-24 05:38] LABS: Hemoglobin 8.2 gm/dL (13.5-18.0); Mean Cell Volume 97.3 fl (78-100); Mean Corpuscular Hemoglobin 31.9 pg (27-31); Mean Corpuscular Hgb Conc 32.8 g/dl (32-36); Mean Platelet Volume 11.2 fl (8-11.3); Neutrophil % 73.9 % (42-75.0); Platelet Count 171 K/mm3 (150-450); Red Blood Count 2.57 M/mm3 (4.7-6.0); Red Cell Distribution Width 14.7 % (11.5-14.0); White Blood Count 10.9 K/mm3 (4.0-10.5)
[2018-12-24 05:42] LABS: Prothrombin Time (Patient) 16.1 Seconds (9.1-10.7)
[2018-12-24 05:43] LABS: INR 1.66 INR (0.92-1.08)
[2018-12-24 05:48] LABS: Albumin * 2.3 gm/dl (3.4-5.0); Anion Gap 13.5 mmol/L (6.8-13.8); BUN/Creatinine Ratio 23.9 (9.0-21.6); Bilirubin, Total 0.5 mg/dL (0.0-1.1); Ca. Corrected For Albumin 9.3 mg/dL (8.4-10.2); Calcium * 8.3 mg/dL (7.9-10.9); Carbon Dioxide 26.9 mmol/L (24-32.6); Potassium 4.4 mmol/L (3.4-4.6); Total Protein 5.6 gm/dL (6.2-8.2)
[2018-12-24] MEDS: CLINDAMYCIN HCL 150 MG CAPSULE PO SCH ×3 (07:25→23:17)
[2018-12-24] MEDS ORDERED: FUROSEMIDE 10 MG/ML VIAL IV SCH (09:15)
[2018-12-24] MEDS: MORPHINE SULFATE 15 MG TABLET.SA PO SCH ×2 (09:51→20:37)
[2018-12-24] MEDS: ESCITALOPRAM OXALATE 10 MG TAB PO SCH (09:52)
[2018-12-24] MEDS: ALLOPURINOL 300 MG TABLET PO SCH (09:52)
[2018-12-24] MEDS: PANTOPRAZOLE SODIUM 40 MG TABLET.EC PO SCH (09:52)
[2018-12-24] MEDS: HYDROCHLOROTHIAZIDE 25 MG TABLET PO SCH (09:52)
[2018-12-24] MEDS: MESALAMINE 0.75 GM PO SCH ×2 (09:52→20:37)
[2018-12-24] MEDS: METOPROLOL TARTRATE 25 MG TABLET PO SCH ×2 (10:09→20:37)
[2018-12-24] MEDS: ENALAPRIL MALEATE 5 MG TABLET PO SCH (10:09)
--- NOTE | 2018-12-24 10:48 | PN ---
Subjective - Date and Time Seen Date: 12/24/18 Time: 10:00 Subjective Narrative: Patient still feels tired, and has not regained his appetite. He has not been able to participate in physical therapy. His hands don't feel as tight as they did yesterday. He feels like his breathing is "ok." Objective - Review of Systems Generalized/Overall Review: Reports: Weakness, Fatigue Respiratory: Denies: Shortness of Breath Cardiac: Reports: Edema. Denies: Chest Pain Abdominal: Reports: Other - decreased appetite. Denies: Nausea Genitourinary Symptoms: Reports: No Symptoms Reported Musculoskeletal Complaints: Reports: Joint Pain - knees Neurological: Reports: Anxiety, Tremors - Vitals Vitals: Last Vital Signs Temp 36.4 C 12/24/18 09:59 Pulse 77 12/24/18 10:09 Resp 20 12/24/18 09:59 BP 94/56 12/24/18 10:09 Pulse Ox 96 12/24/18 09:59 - Abnormal Lab Findings Abnormal Lab Findings: Abnormal Lab Results 12/23/18 12/23/18 12/24/18 Range/Units 05:25 12:19 05:00 WBC (4.0-10.5) K/mm3 RBC (4.7-6.0) M/mm3 Hgb 8.4 L (13.5-18.0) gm/dL Hct 25.9 L (42.0-52.0) % MCH (27-31) pg RDW (11.5-14.0) % Immature Gran % (Auto) (0.001-0.429) % Immature Gran # (Auto) (0.000-0.0310) K/mm3 Lymphocytes % (20-51) % Monocytes % (0.0-9) % Neutrophils # (1.3-6.0) K/mm3 Lymphocytes # (1.5-3.5) k/mm3 Monocytes # (0.0-1.0) k/mm3 PT 16.1 H (9.1-10.7) Seconds INR (Anticoag Therapy) 1.66 H (0.92-1.08) INR BUN (6-23) mg/dL Creatinine (0.4-1.4) mg/dL Est GFR (Non-Af Amer) (60-130) mL/min BUN/Creatinine Ratio (9.0-21.6) Random Glucose (70-110) mg/dL AST (0-48) U/L ALT (19-67) U/L Total Protein (6.2-8.2) gm/dL Albumin (3.4-5.0) gm/dl Crossmatch See Detail 12/24/18 12/24/18 Range/Units 05:00 05:00 WBC 10.9 H (4.0-10.5) K/mm3 RBC 2.57 L (4.7-6.0) M/mm3 Hgb 8.2 L (13.5-18.0) gm/dL Hct 25.0 L (42.0-52.0) % MCH 31.9 H (27-31) pg RDW 14.7 H (11.5-14.0) % Immature Gran % (Auto) 0.70 H (0.001-0.429) % Immature Gran # (Auto) 0.08 H (0.000-0.0310) K/mm3 Lymphocytes % 12.2 L (20-51) % Monocytes % 10.8 H (0.0-9) % Neutrophils # 8.0 H (1.3-6.0) K/mm3 Lymphocytes # 1.33 L (1.5-3.5) k/mm3 Monocytes # 1.2 H (0.0-1.0) k/mm3 PT (9.1-10.7) Seconds INR (Anticoag Therapy) (0.92-1.08) INR BUN 56 H (6-23) mg/dL Creatinine 2.34 H (0.4-1.4) mg/dL Est GFR (Non-Af Amer) 29 L (60-130) mL/min BUN/Creatinine Ratio 23.9 H (9.0-21.6) Random Glucose 117 H (70-110) mg/dL AST 58 H (0-48) U/L ALT 6 L (19-67) U/L Total Protein 5.6 L (6.2-8.2) gm/dL Albumin 2.3 L (3.4-5.0) gm/dl Crossmatch - Exam Constitutional: Present: Alert, Cooperative, No distress, Obese Respiratory: Present: normal breath sounds, no respiratory distress, No wheezing Cardiovascular/Chest: Present: regular rate, rhythm - distant heart sounds, edema - trace edema of hands. 1+ bilateral edema of bilateral lower legs to the hips Abdomen: Present: obese Extremity: Present: other - ortho dressings in place bilateral lower legs. SCDs Neurologic: Present: normal mood/affect, other - mild tremor, improved from yesterday Eye contact: Present: cooperative Cauti Physician Documentation - Urinary Catheter Management Urethral (Herrera) Urethral Indwelling: No Date of Insertion: 12/20/18 Time of Insertion: 08:00 Date of Removal: 12/23/18 Time of Removal: 11:15 Assessment/Plan - Problems/Diagnosis (1) Aspiration into lower respiratory tract Problem: Suspected Qualifiers: Encounter type: initial encounter Qualified Code(s): T17.800A - Unspecified foreign body in other parts of respiratory tract causing asphyxiation, initial encounter Narrative: Patient coughed in the OR after his second surgery, and may have aspirated. He's allergic to PCN, and was started on clindamycin. CXR showed bilateral pulmonary opacities. He is not currently displaying symptoms of pneumonia, but this may have been because antibiotics were started. Will continue 3 days of abx through 12/25, and if he is oxygenating well, afebrile without a cough, can DC clindamycin. Aspiration could also cause pneumonitis without pneumonia. (2) Postoperative anemia Problem: Resolved Narrative: He received one U PRBC yesterday for a Hgb of 7.0. He did not feel significantly different after receiving that unit. Today's hemoglobin was 8.2. His heart rate is not elevated, in the 70's. (3) Chronic renal disease, stage 3, moderately decreased glomerular filtration rate (GFR) between 30-59 mL/min/1.73 square meter Problem: Chronic Narrative: Baseline creatinine appears to be around 2.0, and is 2.36 today, similar to yesterday. Encourage po intake. With his limited mobility, would prefer to avoid IV fluids. (4) Hypocalcemia Problem: Ruled-out Narrative: Calcium value was low yesterday, but corrected for albumin was 10.4. No intervention required. (5) Hypertension Problem: Chronic Qualifiers: Narrative: Holding BP meds, as his blood pressure has been a bit low, with a mean of 68. He is not working with PT, and has not walked much this week after his 2 surgeries. HR in the 70's. Resume antihypertensive when his BP is persistently greater than 130/65
--- NOTE | 2018-12-24 11:40 | PN ---
Subjective - Date and Time Seen Date: 12/24/18 Time: 11:37 Subjective Narrative: Subjective: Reports pain in his left knee and less difficulty sleeping. He feels a little more energenic after his transfusion. He denies any significant shortness of breath. Was able to walk some in the [place] with therapy. Tolerating by mouth intake. Denies any nausea or vomiting. Denies calf pain. Physical exam: Alert and oriented to person, place and time Generalized edema Bilateral lower extremity extremity: Palpable dorsalis pedis pulse. Sensation grossly intact to light touch. Dressings intact on the right, dry in the left. Able to flex and extend ankle and toes. No excessive drainage. Calf and thigh are soft and nontender. Assessment: Postop day 2 status post right total knee arthroplasty, postop day 4 status post left total knee arthroplasty. Plan: Due to the need for pain control, post-operative limited mobility, protection of the surgical site and joint, monitoring of the wound, and the management of chronic medical conditions, he requires continued inpatient care. Continue with physical and occupational therapy weightbearing as tolerated. Continue with anticoagulation. IV clindamycin for possible aspiration pneumonia will be complete today. Pain control with goal to rely on oral medications. Continue bowel regimen. Will need 6 weeks with walker or assitive device to protect joint while ambulating during the recovery process. Discharge planning. Monitor fluid output and lasix to assist with fluid retention. Anemia improved after transfusion. Appreciate medical assistance in management of his chronic conditions as well as his acute pulmonary issues. Objective - Vitals Vitals: Last Vital Signs Temp 36.4 C 12/24/18 09:59 Pulse 77 12/24/18 10:09 Resp 20 12/24/18 09:59 BP 94/56 12/24/18 10:09 Pulse Ox 96 12/24/18 09:59 - Abnormal Lab Findings Abnormal Lab Findings: Abnormal Lab Results 12/23/18 12/24/18 12/24/18 Range/Units 12:19 05:00 05:00 WBC 10.9 H (4.0-10.5) K/mm3 RBC 2.57 L (4.7-6.0) M/mm3 Hgb 8.4 L 8.2 L (13.5-18.0) gm/dL Hct 25.9 L 25.0 L (42.0-52.0) % MCH 31.9 H (27-31) pg RDW 14.7 H (11.5-14.0) % Immature Gran % (Auto) 0.70 H (0.001-0.429) % Immature Gran # (Auto) 0.08 H (0.000-0.0310) K/mm3 Lymphocytes % 12.2 L (20-51) % Monocytes % 10.8 H (0.0-9) % Neutrophils # 8.0 H (1.3-6.0) K/mm3 Lymphocytes # 1.33 L (1.5-3.5) k/mm3 Monocytes # 1.2 H (0.0-1.0) k/mm3 PT 16.1 H (9.1-10.7) Seconds INR (Anticoag Therapy) 1.66 H (0.92-1.08) INR BUN (6-23) mg/dL Creatinine (0.4-1.4) mg/dL Est GFR (Non-Af Amer) (60-130) mL/min BUN/Creatinine Ratio (9.0-21.6) Random Glucose (70-110) mg/dL AST (0-48) U/L ALT (19-67) U/L Total Protein (6.2-8.2) gm/dL Albumin (3.4-5.0) gm/dl 12/24/18 Range/Units 05:00 WBC (4.0-10.5) K/mm3 RBC (4.7-6.0) M/mm3 Hgb (13.5-18.0) gm/dL Hct (42.0-52.0) % MCH (27-31) pg RDW (11.5-14.0) % Immature Gran % (Auto) (0.001-0.429) % Immature Gran # (Auto) (0.000-0.0310) K/mm3 Lymphocytes % (20-51) % Monocytes % (0.0-9) % Neutrophils # (1.3-6.0) K/mm3 Lymphocytes # (1.5-3.5) k/mm3 Monocytes # (0.0-1.0) k/mm3 PT (9.1-10.7) Seconds INR (Anticoag Therapy) (0.92-1.08) INR BUN 56 H (6-23) mg/dL Creatinine 2.34 H (0.4-1.4) mg/dL Est GFR (Non-Af Amer) 29 L (60-130) mL/min BUN/Creatinine Ratio 23.9 H (9.0-21.6) Random Glucose 117 H (70-110) mg/dL AST 58 H (0-48) U/L ALT 6 L (19-67) U/L Total Protein 5.6 L (6.2-8.2) gm/dL Albumin 2.3 L (3.4-5.0) gm/dl Cauti Physician Documentation - Urinary Catheter Management Urethral (Herrera) Urethral Indwelling: No Date of Insertion: 12/20/18 Time of Insertion: 08:00 Date of Removal: 12/23/18 Time of Removal: 11:15 Assessment/Plan - Problems/Diagnosis (1) Status post total right knee replacement Problem: Acute (2) Acute blood loss anemia Problem: Acute (3) Aspiration into lower respiratory tract Problem: Suspected Qualifiers: Encounter type: initial encounter Qualified Code(s): T17.800A - Unspecified foreign body in other parts of respiratory tract causing asphyxiation, initial encounter (4) Hypocalcemia Problem: Ruled-out (5) Renal insufficiency Problem: Acute (6) Status post total left knee replacement Problem: Acute (7) Chronic renal disease, stage 3, moderately decreased glomerular filtration rate (GFR) between 30-59 mL/min/1.73 square meter Problem: Chronic (8) Anxiety Problem: Chronic (9) Acid reflux Problem: Chronic (10) Crohn disease Problem: Chronic Qualifiers: Gastrointestinal tract location: unspecified location Digestive disease complication type: without complication Qualified Code(s): K50.90 - Crohn's disease, unspecified, without complications (11) Hypertension Problem: Chronic Qualifiers: (12) Atrial fibrillation Problem: Chronic Qualifiers: (13) H/O right heart catheterization Problem: Chronic
[2018-12-24] MEDS: WARFARIN SODIUM 4 MG TABLET PO SCH (16:41)
[2018-12-24] MEDS: SENNOSIDES/DOCUSATE SODIUM 1 TAB TABLET PO SCH (20:38)
[2018-12-25 06:23] LABS: Prothrombin Time (Patient) 21.3 Seconds (9.1-10.7)
[2018-12-25 06:24] LABS: INR 2.22 INR (0.92-1.08)
[2018-12-25] MEDS: oxyCODONE HCL/ACETAMINOPHEN 1 TAB TABLET PO PRN ×2 (07:30→19:31)
[2018-12-25] MEDS: CLINDAMYCIN HCL 150 MG CAPSULE PO SCH (07:30)
[2018-12-25] MEDS: MAGNESIUM HYDROXIDE 30 ML UDC PO PRN (07:30)
[2018-12-25] MEDS: MORPHINE SULFATE 15 MG TABLET.SA PO SCH ×2 (09:40→21:55)
[2018-12-25] MEDS: PANTOPRAZOLE SODIUM 40 MG TABLET.EC PO SCH (09:41)
[2018-12-25] MEDS: ALLOPURINOL 300 MG TABLET PO SCH (09:41)
[2018-12-25] MEDS: METOPROLOL TARTRATE 25 MG TABLET PO SCH ×2 (09:41→21:56)
[2018-12-25] MEDS: HYDROCHLOROTHIAZIDE 25 MG TABLET PO SCH (09:41)
[2018-12-25] MEDS: ENALAPRIL MALEATE 5 MG TABLET PO SCH (09:41)
[2018-12-25] MEDS: ESCITALOPRAM OXALATE 10 MG TAB PO SCH (09:41)
[2018-12-25] MEDS: MESALAMINE 0.75 GM PO SCH ×2 (09:42→22:05)
--- NOTE | 2018-12-25 10:31 | PN ---
Subjective - Date and Time Seen Date: 12/25/18 Time: 10:23 Subjective Narrative: I feel better my pain is controlled Objective Objective Narrative: 73-year-old male status post bilateral knee replacements, possible as piration pneumonia, anemia treated with transfusion of PRBCs was evaluated at bedside was found to be afebrile and in no acute distress. Patient was found to be resting comfortably, he reports adequate control of his pain at the moment and denies any new symptoms. Patient was suspected of having develop aspiration pneumonia but oxygen saturation has remained stable and there has been no recurrence of fever, patient completes IV antibiotics today. We will continue to monitor for signs or symptoms of pneumonia. Patient was ordered by the orthopedic surgeon to continue in hospital OT and PT. Discharge planning is underway for possible discharge on Thursday to rehab facility where patient will continue with PT and OT. In the meantime we will continue with anticoagulation and daily monitoring of INR as well as analgesics for pain control. - Review of Systems Generalized/Overall Review: Reports: Weakness EENTM: Reports: No Symptoms Reported Respiratory: Reports: No Symptoms Reported Cardiac: Reports: No Symptoms Reported Abdominal: Reports: No Symptoms Reported Genitourinary Symptoms: Reports: No Symptoms Reported Musculoskeletal Complaints: Reports: Joint Pain - Bilateral knee pain Neurological: Reports: No Symptoms Reported Skin: Reports: No Symptoms Reported Endocrine: Reports: No Symptoms Reported - Vitals Vitals: Last Vital Signs Temp 36.6 C 12/25/18 06:33 Pulse 87 12/25/18 09:41 Resp 18 12/25/18 06:33 BP 137/55 12/25/18 09:41 Pulse Ox 100 12/25/18 06:33 - Abnormal Lab Findings Abnormal Lab Findings: Abnormal Lab Results 12/25/18 Range/Units 06:00 PT 21.3 H (9.1-10.7) Seconds INR (Anticoag Therapy) 2.22 H (0.92-1.08) INR - Exam Constitutional: Present: Alert, Oriented x3, Cooperative, Well developed, Well nourished, No distress, Elderly, Obese ENT Exam: Present: normal ENT inspection, hearing grossly normal, pharynx normal, TMs normal Neck: Present: non-tender, full range of motion, supple, normal inspection, trachea midline Breasts: Present: Exam deferred Respiratory: Present: chest non-tender, lungs clear, normal breath sounds, no respiratory distress, no accessory muscle use Cardiovascular/Chest: Present: normal peripheral pulses, regular rate, rhythm, no chest tenderness, no edema, no gallop, no JVD, no murmur Abdomen: Present: Normal bowel sounds, soft, nontender, nondistended, no rebound tenderness, no hepatospenomegaly, no masses, obese /Rectal: Present: Exam deferred Extremity: Present: no pedal edema, no calf tenderness, leg pain, swelling, other - Bilateral knees with fresh surgical wounds covered by dressings and bandages, no signs of active bleeding or infection Skin Exam: Present: normal color, warm/dry, no cyanosis Lymphatic: Present: no adenopathy Neurologic: Present: community health advocate II-XII nml as tested, no motor/sensory deficits, alert, normal mood/affect, oriented x 3 Appearance: Present: appropriate appearance, appropriate insight, neat, no memory impairment Eye contact: Present: cooperative, good eye contact, normal speech Thoughts: Present: normal thought pattern, no apparent hallucination Cauti Physician Documentation - Urinary Catheter Management Urethral (Herrera) Urethral Indwelling: No Date of Insertion: 12/20/18 Time of Insertion: 08:00 Date of Removal: 12/23/18 Time of Removal: 11:15 Assessment/Plan Plan Narrative: We will continue to treat patient with analgesics for adequate pain control, and continue anticoagulation as ordered by Ortho. Patient was currently found to be within target of his INR goal. Today he completes his IV antibiotics for possible aspiration pneumonia and does not currently show signs of pneumonia. We will continue inpatient PT and OT and continue working on discharge planning for Thursday to rehab facility.
--- NOTE | 2018-12-25 10:38 | PN ---
Subjective - Date and Time Seen Date: 12/25/18 Time: 10:33 Subjective Narrative: Patient reports his pain is well controlled this time. He notes he is nervous to stand up due to concern for fall. Patient has been up with physical therapy. Patient presents laying in bed using incentive spirometer. Patient overall states his legs feel stiff and achy. Patient notes his pain is better at rest worse with ambulation. Objective - Vitals Vitals: Last Vital Signs Temp 36.6 C 12/25/18 06:33 Pulse 87 12/25/18 09:41 Resp 18 12/25/18 06:33 BP 137/55 12/25/18 09:41 Pulse Ox 100 12/25/18 06:33 - Abnormal Lab Findings Abnormal Lab Findings: Abnormal Lab Results 12/25/18 Range/Units 06:00 PT 21.3 H (9.1-10.7) Seconds INR (Anticoag Therapy) 2.22 H (0.92-1.08) INR - Exam Constitutional: Present: Alert, Cooperative, No distress Extremity: Present: other - RLE--> sensation intact light touch, 5/5 plantar flexion dorsiflexion of his ankle, diffuse tenderness about right knee, distal capillary refill brisk, incision has no significant drainage LLE--> sensation intact light touch, 5/5 plantar flexion dorsiflexion of ankle, diffuse tenderness about left knee, distal capillary refill brisk, incision is no significant drainage Eye contact: Present: cooperative Thoughts: Present: normal thought pattern Cauti Physician Documentation - Urinary Catheter Management Urethral (Herrera) Urethral Indwelling: No Date of Insertion: 12/20/18 Time of Insertion: 08:00 Date of Removal: 12/23/18 Time of Removal: 11:15 Assessment/Plan Plan Narrative: -73 y/o male status post bilateral knee arthroplasty -Weightbearing as tolerated with assistive devices PRN -PT/OT progress as tolerated -P.o. diet as tolerated -P.o. pain medication PRN -DVT prophylaxis, TOMAS hose above knee-high, SCDs in bed, continue Coumadin bridge INR was 2.2 -Continue treatment for aspiration pneumonia, including antibiotic and incentive spirometer -Discussed with patient continued monitoring, working with physical therapy for on ambulation with assistive devices, discussed need to ambulate and continue care for aspiration pneumonia -Disposition plan to discharge to the [facility] once all goals are met, pain is well controlled - Problems/Diagnosis (1) Status post total left knee replacement Problem: Acute (2) Status post total right knee replacement Problem: Acute
[2018-12-25] MEDS: WARFARIN SODIUM 4 MG TABLET PO SCH (17:43)
[2018-12-25] MEDS: SENNOSIDES/DOCUSATE SODIUM 1 TAB TABLET PO SCH (21:55)
[2018-12-26] MEDS: oxyCODONE HCL/ACETAMINOPHEN 1 TAB TABLET PO PRN ×3 (05:05→20:16)
[2018-12-26 06:33] LABS: Prothrombin Time (Patient) 27.3 Seconds (9.1-10.7)
[2018-12-26 06:37] LABS: INR 2.87 INR (0.92-1.08)
--- NOTE | 2018-12-26 09:13 | PN ---
Subjective - Date and Time Seen Date: 12/26/18 Time: 09:09 Subjective Narrative: Patient reports he feels as though overall he is doing well. He is struggled to ambulate. Patient notes his pain is well controlled, he states he used the CPM machine yesterday and to help with motion but caused his needs to be achy. Patient was unable to stand to chair, was a Jay lift, but is sitting in the chair in no acute distress. Objective - Vitals Vitals: Last Vital Signs Temp 36.8 C 12/26/18 06:30 Pulse 61 12/26/18 06:30 Resp 18 12/26/18 06:30 BP 103/53 12/26/18 06:30 Pulse Ox 94 12/26/18 06:30 - Abnormal Lab Findings Abnormal Lab Findings: Abnormal Lab Results 12/26/18 Range/Units 06:09 PT 27.3 H (9.1-10.7) Seconds INR (Anticoag Therapy) 2.87 H (0.92-1.08) INR - Exam Constitutional: Present: Alert, Cooperative Extremity: Present: other - RLE--> sensation intact light touch, no significant erythema or drainage from incisions, 5/5 plantar flexion dorsiflexion of the ankle, distal capillary refill brisk, diffuse tenderness about right knee LLE--> sensation intact light touch, no significant erythema or drainage from incisions, 5/5 plantar flexion dorsiflexion of the ankle, distal capillary refill brisk, diffuse tenderness about left knee Eye contact: Present: cooperative Cauti Physician Documentation - Urinary Catheter Management Urethral (Herrera) Urethral Indwelling: No Date of Insertion: 12/20/18 Time of Insertion: 08:00 Date of Removal: 12/23/18 Time of Removal: 11:15 Assessment/Plan Plan Narrative: -73 y/o male status post bilateral knee arthroplasty -Weightbearing as tolerated with assistive devices PRN -PT/OT progress as tolerated -P.o. diet as tolerated -P.o. pain medication PRN -DVT prophylaxis, TOMAS hose above knee-high, SCDs in bed, continue Coumadin bridge INR was 2.2 -Continue treatment for aspiration pneumonia, including antibiotic and incentive spirometer -Discussed with patient continued monitoring, working with physical therapy for on ambulation with assistive devices, encourage patient the need for ambulation and to work on weightbearing status, discussed with physical therapy need for continued progress as patient was we are lifted to the chair this morning. Patient expressed understanding as well as physical therapy. -Disposition plan to discharge to the [facility] once all goals are met, pain is well controlled - Problems/Diagnosis (1) Status post total left knee replacement Problem: Acute (2) Status post total right knee replacement Problem: Acute
[2018-12-26] MEDS: MESALAMINE 0.75 GM PO SCH ×2 (10:00→20:17)
[2018-12-26] MEDS: ENALAPRIL MALEATE 5 MG TABLET PO SCH (10:00)
[2018-12-26] MEDS: MORPHINE SULFATE 15 MG TABLET.SA PO SCH ×2 (10:00→21:23)
[2018-12-26] MEDS: METOPROLOL TARTRATE 25 MG TABLET PO SCH ×2 (10:00→21:23)
[2018-12-26] MEDS: HYDROCHLOROTHIAZIDE 25 MG TABLET PO SCH (10:00)
[2018-12-26] MEDS: ALLOPURINOL 300 MG TABLET PO SCH (10:00)
[2018-12-26] MEDS: ESCITALOPRAM OXALATE 10 MG TAB PO SCH (10:00)
[2018-12-26] MEDS: PANTOPRAZOLE SODIUM 40 MG TABLET.EC PO SCH (10:00)
[2018-12-26] MEDS ORDERED: NORMAL SALINE 1,000 ML IV ONE (15:12)
[2018-12-26] MEDS ORDERED: NORMAL SALINE 500 ML IV ONE (15:21)
--- NOTE | 2018-12-26 15:33 | PN ---
Subjective - Date and Time Seen Date: 12/26/18 Time: 15:19 Subjective Narrative: I have knee pain Objective Objective Narrative: 73-year-old male status post bilateral knee replacements, and postop anemia treated with transfusion of PRBCs was evaluated at bedside was found to be afebrile and in no acute distress. Patient has shown clinical improvement, his cough has resolved and there has been no recurrence of fever. He has completed IV antibiotics for possible aspiration pneumonia and since then we have not had any issues. He complains of bilateral knee pain which is expected after bilateral knee replacement, he will be administered analgesics for better pain control. For now he maintains stable vitals and is saturating adequately on room air. Soft IV hydration has been ordered to optimize renal function since the patient's GFR has decreased since being hospitalized for his surgery. Follow-up lab has been ordered for tomorrow morning. In the meantime he is doing PT and OT as tolerated and has been evaluated by the orthopedic team who report adequate progress. We will continue to monitor him closely until discharge to the rehab facility which is planned for tomorrow morning. - Review of Systems Generalized/Overall Review: Reports: No Symptoms Reported EENTM: Reports: No Symptoms Reported Respiratory: Reports: No Symptoms Reported Cardiac: Reports: No Symptoms Reported Abdominal: Reports: No Symptoms Reported Genitourinary Symptoms: Reports: No Symptoms Reported Musculoskeletal Complaints: Reports: Joint Pain, Joint Swelling - Bilateral knee pain Neurological: Reports: No Symptoms Reported Skin: Reports: No Symptoms Reported Endocrine: Reports: No Symptoms Reported - Vitals Vitals: Last Vital Signs Temp 36.4 C 12/26/18 14:24 Pulse 61 12/26/18 14:24 Resp 18 12/26/18 14:24 BP 123/41 12/26/18 14:24 Pulse Ox 94 12/26/18 14:24 - Abnormal Lab Findings Abnormal Lab Findings: Abnormal Lab Results 12/26/18 Range/Units 06:09 PT 27.3 H (9.1-10.7) Seconds INR (Anticoag Therapy) 2.87 H (0.92-1.08) INR - Exam Constitutional: Present: Alert, Oriented x3, Cooperative, Well developed, Well nourished, No distress, Obese ENT Exam: Present: normal ENT inspection, hearing grossly normal, pharynx normal, TMs normal Neck: Present: non-tender, full range of motion, supple, normal inspection, trachea midline Breasts: Present: Exam deferred Respiratory: Present: chest non-tender, lungs clear, normal breath sounds, no respiratory distress, no accessory muscle use Cardiovascular/Chest: Present: normal peripheral pulses, regular rate, rhythm, no chest tenderness, no edema, no gallop, no JVD, no murmur, no rub Abdomen: Present: Normal bowel sounds, soft, nontender, nondistended, no rebound tenderness, no hepatospenomegaly, no masses, obese Extremity: Present: no calf tenderness, normal capillary refill, pelvis stable, leg pain, other - Bilateral knee pain with recent surgical wound wrapped in clean and dry dressing Skin Exam: Present: normal color, warm/dry, no cyanosis Lymphatic: Present: no adenopathy Neurologic: Present: 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, normal cerebellar test, no motor/sensory deficits, alert, normal mood/affect, oriented x 3 Appearance: Present: appropriate appearance, appropriate insight, neat, no memory impairment Eye contact: Present: cooperative, good eye contact, normal speech Thoughts: Present: normal thought pattern, no apparent hallucination Cauti Physician Documentation - Urinary Catheter Management Urethral (Herrera) Urethral Indwelling: No Date of Insertion: 12/20/18 Time of Insertion: 08:00 Date of Removal: 12/23/18 Time of Removal: 11:15 Assessment/Plan Plan Narrative: We will reevaluate patient and labs in the morning. Discharge planning to rehab facility is underway, in the meantime we will continue inpatient PT and OT and continue to monitor patient closely. - Problems/Diagnosis (1) Status post total left knee replacement Problem: Acute (2) Status post total right knee replacement Problem: Acute (3) Acute blood loss anemia Problem: Acute (4) Renal insufficiency Problem: Acute (5) Chronic renal disease, stage 3, moderately decreased glomerular filtration rate (GFR) between 30-59 mL/min/1.73 square meter Problem: Chronic
[2018-12-26] MEDS: WARFARIN SODIUM 4 MG TABLET PO SCH (16:47)
[2018-12-26] MEDS: SENNOSIDES/DOCUSATE SODIUM 1 TAB TABLET PO SCH (21:23)
[2018-12-27] MEDS: MAGNESIUM HYDROXIDE 30 ML UDC PO PRN (06:09)
[2018-12-27 06:24] LABS: Prothrombin Time (Patient) 31.6 Seconds (9.1-10.7)
[2018-12-27 06:26] LABS: INR 3.34 INR (0.92-1.08)
[2018-12-27 06:27] LABS: Albumin * 2.4 gm/dl (3.4-5.0); Anion Gap 14.8 mmol/L (6.8-13.8); BUN/Creatinine Ratio 26.7 (9.0-21.6); Bilirubin, Total 0.4 mg/dL (0.0-1.1); Ca. Corrected For Albumin 9.8 mg/dL (8.4-10.2); Calcium * 8.8 mg/dL (7.9-10.9); Carbon Dioxide 25.8 mmol/L (24-32.6); Potassium 4.6 mmol/L (3.4-4.6); Total Protein 5.7 gm/dL (6.2-8.2)
--- NOTE | 2018-12-27 07:55 | PN ---
Subjective - Date and Time Seen Date: 12/27/18 Time: 07:40 Subjective Narrative: Denies breathing concerns, but coughs when trying to eat dry food. He still feels tired. Has not been able to participate much with PT because he's afraid of falling. Objective - Review of Systems Generalized/Overall Review: Denies: Fever Respiratory: Denies: Cough, Shortness of Breath, Wheezing Cardiac: Denies: Chest Pain, Edema Abdominal: Denies: Nausea, Constipation Genitourinary Symptoms: Reports: No Symptoms Reported Musculoskeletal Complaints: Reports: Joint Pain - S/P knee replacements Neurological: Reports: No Symptoms Reported Skin: Reports: No Symptoms Reported - Vitals Vitals: Last Vital Signs Temp 36.5 C 12/27/18 07:42 Pulse 70 12/27/18 07:42 Resp 18 12/27/18 07:42 BP 104/48 12/27/18 07:42 Pulse Ox 97 12/27/18 07:42 - Abnormal Lab Findings Abnormal Lab Findings: Abnormal Lab Results 12/27/18 12/27/18 Range/Units 05:20 05:20 PT 31.6 H (9.1-10.7) Seconds INR (Anticoag Therapy) 3.34 H (0.92-1.08) INR Anion Gap 14.8 H (6.8-13.8) mmol/L BUN 80 H (6-23) mg/dL Creatinine 3.00 H D (0.4-1.4) mg/dL Est GFR (Non-Af Amer) 22 L D (60-130) mL/min BUN/Creatinine Ratio 26.7 H (9.0-21.6) AST 66 H (0-48) U/L ALT 13 L (19-67) U/L Total Protein 5.7 L (6.2-8.2) gm/dL Albumin 2.4 L (3.4-5.0) gm/dl - Exam Constitutional: Present: Alert, Oriented x3, Cooperative, Obese Respiratory: Present: lungs clear, no respiratory distress Cardiovascular/Chest: Present: regular rate, rhythm, edema - 1+ bilaterally Extremity: Present: other - bilateral TOMAS hose Appearance: Present: appropriate appearance Cauti Physician Documentation - Urinary Catheter Management Urethral (Herrera) Urethral Indwelling: No Date of Insertion: 12/20/18 Time of Insertion: 08:00 Date of Removal: 12/23/18 Time of Removal: 11:15 Assessment/Plan - Problems/Diagnosis (1) Acute renal injury Problem: Acute Narrative: His baseline creatinine is around 2, and his creatinine today was 3.0. This meets the criteria for acute kidney injury. He did receive a fluid bolus yesterday. His blood pressure has been lower than his normal, but he has been receiving his enalapril and hydrochlorothiazide. We will hold these and repeat tomorrow. GFR also decreased to 22. Maybe be due to decreased po intake. If this does not recover, recommend nephrology consult. Have not been able to accurately measure intake and output. Need to encourage po intake. Would prefer to avoid IV fluids, out of concern for third spacing since his mobility is so limited. (2) Hypertension Problem: Chronic Qualifiers: Narrative: Enalapril and HCTZ held for ERIN. BP has been low, with readings today of 100's/40's. (3) Postoperative anemia Problem: Resolved (4) Chronic renal disease, stage 3, moderately decreased glomerular filtration rate (GFR) between 30-59 mL/min/1.73 square meter Problem: Chronic (5) Hypocalcemia Problem: Inactive (6) Aspiration into lower respiratory tract Problem: Resolved Qualifiers: Encounter type: initial encounter Qualified Code(s): T17.800A - Unspecified foreign body in other parts of respiratory tract causing asphyxiation, initial encounter Narrative: There was concern for aspiration pneumonia, since he vomited and coughed in the OR after his second knee replacement surgery last week. He was on clindamycin for 3 days, which finished 2 days prior. He has not had signs of pneumoniano fever, no cough, no increased oxygen requirements. No further intervention needed.
[2018-12-27] MEDS: ALLOPURINOL 300 MG TABLET PO SCH (08:28)
[2018-12-27] MEDS: PANTOPRAZOLE SODIUM 40 MG TABLET.EC PO SCH (08:28)
[2018-12-27] MEDS: MORPHINE SULFATE 15 MG TABLET.SA PO SCH ×2 (08:28→20:53)
[2018-12-27] MEDS: METOPROLOL TARTRATE 25 MG TABLET PO SCH ×2 (08:28→20:53)
[2018-12-27] MEDS: ESCITALOPRAM OXALATE 10 MG TAB PO SCH (08:29)
[2018-12-27] MEDS: MESALAMINE 0.75 GM PO SCH ×2 (08:33→20:53)
--- NOTE | 2018-12-27 10:05 | DS ---
(1) Acute blood loss anemia Problem: Acute (2) Renal insufficiency Problem: Acute (3) Status post total left knee replacement Problem: Acute (4) Chronic renal disease, stage 3, moderately decreased glomerular filtration rate (GFR) between 30-59 mL/min/1.73 square meter Problem: Chronic (5) Anxiety Problem: Chronic (6) Acid reflux Problem: Chronic (7) Crohn disease Problem: Chronic Qualifiers: Gastrointestinal tract location: unspecified location Digestive disease complication type: without complication Qualified Code(s): K50.90 - Crohn's disease, unspecified, without complications (8) Hypertension Problem: Chronic Qualifiers: (9) Atrial fibrillation Problem: Chronic Qualifiers: (10) H/O right heart catheterization Problem: Chronic Description of Stay: Mr. Mendez was admitted to the floor after undergoing staged bilateral total knee arthroplasties by 2 days. At his second surgery he did have some reflux of bloody gastric contents and there is some concern of possible aspiration. Radiographs showed some possible concern and thus he was treated prophylactically for suspected aspiration but displayed minimal symptoms and was treated for short course of antibiotics but did not require any oxygen. Bola michele was consulted to assist with this treatment. Otherwise, he tolerated this well. Was admitted to the floor postoperatively for 24 hours of IV antibiotics, pain control, medical comanagement, and occupational and physical therapy. OT and PT were consulted to assist with activities of daily living and ambulation. Was made weightbearing as tolerated with range of motion as tolerated. Pain was initially controlled with IV regimen. This was transitioned to oral once tolerating a by mouth intake. Was resumed on home diet and medications. Had a Herrera catheter inserted and the operating room which was discontinued on postoperative day 1 after his second knee. A drain was placed intraoperatively into the knees which were discontinued on postoperative day 1. He was resumed on his Coumadin, SCD and TOMAS hose were utilized for DVT prophylaxis. Vital signs remained stable to the hospital course. Serial labs were obtained which showed a final hemoglobin of 8.2 grams. He did require 1 unit of packed red blood cells for postoperative acute blood loss anemia and responded appropriately with improved overall anemia symptoms. BMP was reviewed and was compared to baseline which he has chronic renal insufficiency. Physical examination throughout the hospital course showed an extremity that had sensation that was intact to light touch, palpable pulses, a benign wound, motor intact to the toes, ankle, and knee. Knee range of motion was approximately 5 degrees to 70 degrees. She was felt to be stable from a medical standpoint and was slow to progress with therapy and thus was felt that he would benefit from continued skilled therapy at a nursing facility. He is being transferred this today. Instructions: Continue with weightbearing as tolerated and range of motion as tolerated. It is okay to shower and get the wound wet as long as there is no drainage from the wound. Do not bathe or soak the wound. If there is any drainage from the wound keep the wound clean and dry and cover with dry gauze and tape. Change every 2- 3 days as needed if there is any drainage. Cover wound while showering if there is any drainage. Continue with physical therapy. Resume home diet. Report any fever over 101.5 Fahrenheit, uncontrolled pain, increased drainage, foul odor of drainage, new or increased calf pain or shortness of breath, or any other significant complaints. He will continue with his Coumadin. He was supratherapeutic today and thus we will hold it until he is down below 3 and under the direction of the Coumadin clinic at [facility]. Continue with TOMAS hose on the operative extremity until instructed otherwise. No driving until instructed otherwise. Follow up in approximately 10-14 days. Procedures Performed: see notes below List Procedures: Bilateral total knee arthroplasty, 1 unit packed red blood cell transfusion Results and Findings: Lab Pending Results 12/20/18 06:45: PT 12.0 H, INR (Anticoag Therapy) 1.22 H 12/21/18 05:24: WBC 9.8, RBC 3.18 L, Hgb 10.4 L, Hct 32.4 L, MCV 101.9 H, MCH 32.7 H, MCHC 32.1, RDW 13.7, Plt Count 178, MPV 10.9 12/21/18 05:24: Sodium 138, Plasma Sodium 138, Potassium 4.0, Chloride 103, Carbon Dioxide 29.1, Anion Gap 9.9, BUN 37 H, Creatinine 1.91 H, Est GFR (Non-Af Amer) 37 L, BUN/Creatinine Ratio 19.4, Random Glucose 113 H, Calcium 8.3 12/23/18 05:25: WBC 11.5 H, RBC 2.15 L, Hgb 7.0 L* D, Hct 21.6 L* D, MCV 100.5 H, MCH 32.6 H, MCHC 32.4, RDW 13.8, Plt Count 136 L, MPV 11.0 12/23/18 05:25: Sodium 135, Plasma Sodium 136, Potassium 4.3, Chloride 102, Carbon Dioxide 24.3, Anion Gap 13.0, BUN 60 H D, Creatinine 2.39 H D, Est GFR (Non-Af Amer) 28 L D, BUN/Creatinine Ratio 25.1 H, Random Glucose 146 H, Calcium 7.7 L, Calcium Adj for Albumin 9.0, Total Bilirubin 0.3, AST 48, ALT 6 L, Alkaline Phosphatase 49 L, Total Protein 4.2 L, Albumin 2.0 L 12/23/18 05:25: Blood Type B Positive, Antibody Screen Negative, Crossmatch See Detail 12/23/18 05:25: PT 12.0 H, INR (Anticoag Therapy) 1.22 H 12/23/18 12:19: Hgb 8.4 L, Hct 25.9 L 12/24/18 05:00: PT 16.1 H, INR (Anticoag Therapy) 1.66 H 12/24/18 05:00: WBC 10.9 H, RBC 2.57 L, Hgb 8.2 L, Hct 25.0 L, MCV 97.3, MCH 31.9 H, MCHC 32.8, RDW 14.7 H, Plt Count 171, MPV 11.2, Immature Gran % (Auto) 0.70 H, Immature Gran # (Auto) 0.08 H, Neutrophils % 73.9, Lymphocytes % 12.2 L, Monocytes % 10.8 H, Eosinophils % 2.1, Basophils % 0.3, Nucleated RBC % 0.0, Neutrophils # 8.0 H, Lymphocytes # 1.33 L, Monocytes # 1.2 H, Eosinophils # 0.2, Absolute Basophils 0.0 12/24/18 05:00: Sodium 135, Plasma Sodium 135, Potassium 4.4, Chloride 99, Carbon Dioxide 26.9, Anion Gap 13.5, BUN 56 H, Creatinine 2.34 H, Est GFR (Non- Af Amer) 29 L, BUN/Creatinine Ratio 23.9 H, Random Glucose 117 H, Calcium 8.3, Calcium Adj for Albumin 9.3, Total Bilirubin 0.5, AST 58 H, ALT 6 L, Alkaline Phosphatase 63, Total Protein 5.6 L, Albumin 2.3 L 12/25/18 06:00: PT 21.3 H, INR (Anticoag Therapy) 2.22 H 12/26/18 06:09: PT 27.3 H, INR (Anticoag Therapy) 2.87 H 12/27/18 05:20: PT 31.6 H, INR (Anticoag Therapy) 3.34 H 12/27/18 05:20: Sodium 138, Plasma Sodium 138, Potassium 4.6, Chloride 102, Carbon Dioxide 25.8, Anion Gap 14.8 H, BUN 80 H, Creatinine 3.00 H D, Est GFR (Non-Af Amer) 22 L D, BUN/Creatinine Ratio 26.7 H, Random Glucose 99, Calcium 8.8, Calcium Adj for Albumin 9.8, Total Bilirubin 0.4, AST 66 H, ALT 13 L, Alkaline Phosphatase 90, Total Protein 5.7 L, Albumin 2.4 L Discharge Location: [facility] Disposition: SNF Condition: Fair Level of Care: SNF Discharge Activity: Activity as tolerated, Weight bearing Discharge Diet: General/regular food Care Home Therapy: Physical Therapy, Occupation Therapy Referrals: Casimiro Farias MD [Staff Physician] - 01/11/19 1:30 pm Problem Oriented Discharge Instructions to Patient/Family: Total Knee Replacement, Care After, [id number] Additional Patient Instructions (free text): Pt going to [facility] for SNF therapies, PT and OT to evaluate and treat. Please fax discharge information to [facility] and call report. Post-op follow up in the office with Dr. Farias scheduled for Thursday01/11/19 at 1:30pm. Prescriptions (Any new or edited meds): Morphine Sulfate [Ms Contin] 15 mg PO Q12H #10 tablet.sa oxyCODONE HCL/ACETAMINOPHEN [Percocet 5 MG/325 MG] 2 tab PO Q4H PRN #60 tab PRN Reason: Moderate Pain (Pain Scale 4-6) Pantoprazole Sodium [Protonix] 40 mg PO DAILY #60 tablet.dr Brothers/Docusate Sodium [Senokot-S] 2 tab PO HS #60 tab Complete Home Medications List: Complete Home Medication List: alprazolam 0.25 mg tablet 0.25 mg PO DAILY PRN #30 tab 12/09/17 metoprolol tartrate 25 mg tablet 25 mg PO BID 30 Days #60 tab 12/09/17 warfarin 2 mg tablet 4 mg PO DAILY 90 Days #180 tab 12/09/17 allopurinol 300 mg tablet 300 mg PO DAILY #90 tab 09/27/18 enalapril 10 mg-hydrochlorothiazide 25 mg tablet 1 tab PO DAILY #90 tab 09/27/18 omeprazole 40 mg capsule,delayed release 40 mg PO DAILY PRN #90 cap 10/07/18 mesalamine ER 0.375 gram capsule,extended release 24 hr 0.75 g PO BID 90 Days #360 cap 10/27/18 escitalopram 10 mg tablet 10 mg PO DAILY #30 tab 11/16/18 Morphine Sulfate [Ms Contin] 15 mg PO Q12H #10 tablet.sa 12/27/18 Pantoprazole Sodium [Protonix] 40 mg PO DAILY #60 tablet. 12/27/18 Sennosides/Docusate Sodium [Senokot-S] 2 tab PO HS #60 tab 12/27/18 oxyCODONE HCL/ACETAMINOPHEN [Percocet 5 MG/325 MG] 2 tab PO Q4H PRN #60 tab 12/27/18
[2018-12-27] MEDS: oxyCODONE HCL/ACETAMINOPHEN 1 TAB TABLET PO PRN (11:26)
--- NOTE | 2018-12-27 12:28 | PN ---
Subjective - Date and Time Seen Date: 12/27/18 Time: 12:25 Subjective Narrative: Subjective: Reports pain relieved with medications but still worse on the left. He denies any significant shortness of breath. Was able to walk in the room some with therapy. Tolerating by mouth intake. Denies any nausea or vomiting. Denies calf pain. Physical exam: Alert and oriented to person, place and time Improved edema Bilateral lower extremity extremity: Palpable dorsalis pedis pulse. Sensation grossly intact to light touch. Able to flex and extend ankle and toes. No excessive drainage. Calf and thigh are soft and nontender. Assessment: Postop day 5 status post right total knee arthroplasty, postop day 7 status post left total knee arthroplasty. Plan: Due to the need for pain control, post-operative limited mobility, protection of the surgical site and joint, monitoring of the wound, and the management of chronic medical conditions, he requires continued inpatient care. Continue with physical and occupational therapy weightbearing as tolerated. Continue with anticoagulation. Pain control with goal to rely on oral medications. Continue bowel regimen. Will need 6 weeks with walker or assitive device to protect joint while ambulating during the recovery process. Discharge planning - tomorrow if stable. Hold Coumadin for elevated INR. Appreciate medical assistance in management of his chronic conditions as well as his renal function. Objective - Vitals Vitals: Last Vital Signs Temp 36.8 C 12/27/18 10:00 Pulse 70 12/27/18 10:00 Resp 20 12/27/18 10:00 BP 108/55 12/27/18 10:00 Pulse Ox 96 12/27/18 10:00 - Abnormal Lab Findings Abnormal Lab Findings: Abnormal Lab Results 12/27/18 12/27/18 Range/Units 05:20 05:20 PT 31.6 H (9.1-10.7) Seconds INR (Anticoag Therapy) 3.34 H (0.92-1.08) INR Anion Gap 14.8 H (6.8-13.8) mmol/L BUN 80 H (6-23) mg/dL Creatinine 3.00 H D (0.4-1.4) mg/dL Est GFR (Non-Af Amer) 22 L D (60-130) mL/min BUN/Creatinine Ratio 26.7 H (9.0-21.6) AST 66 H (0-48) U/L ALT 13 L (19-67) U/L Total Protein 5.7 L (6.2-8.2) gm/dL Albumin 2.4 L (3.4-5.0) gm/dl Cauti Physician Documentation - Urinary Catheter Management Urethral (Herrera) Urethral Indwelling: No Date of Insertion: 12/20/18 Time of Insertion: 08:00 Date of Removal: 12/23/18 Time of Removal: 11:15 Assessment/Plan - Problems/Diagnosis (1) Status post total right knee replacement Problem: Acute (2) Acute blood loss anemia Problem: Acute (3) Aspiration into lower respiratory tract Problem: Resolved Qualifiers: Encounter type: initial encounter Qualified Code(s): T17.800A - Unspecified foreign body in other parts of respiratory tract causing asphyxiation, initial encounter (4) Hypocalcemia Problem: Inactive (5) Renal insufficiency Problem: Acute (6) Status post total left knee replacement Problem: Acute (7) Chronic renal disease, stage 3, moderately decreased glomerular filtration rate (GFR) between 30-59 mL/min/1.73 square meter Problem: Chronic (8) Anxiety Problem: Chronic (9) Acid reflux Problem: Chronic (10) Crohn disease Problem: Chronic Qualifiers: Gastrointestinal tract location: unspecified location Digestive disease complication type: without complication Qualified Code(s): K50.90 - Crohn's disease, unspecified, without complications (11) Hypertension Problem: Chronic Qualifiers: (12) Atrial fibrillation Problem: Chronic Qualifiers: (13) H/O right heart catheterization Problem: Chronic
[2018-12-27] MEDS: SENNOSIDES/DOCUSATE SODIUM 1 TAB TABLET PO SCH (20:53)
[2018-12-28 06:08] LABS: Albumin * 2.3 gm/dl (3.4-5.0); Anion Gap 15.9 mmol/L (6.8-13.8); BUN/Creatinine Ratio 24.1 (9.0-21.6); Bilirubin, Total 0.4 mg/dL (0.0-1.1); Ca. Corrected For Albumin 9.8 mg/dL (8.4-10.2); Calcium * 8.8 mg/dL (7.9-10.9); Carbon Dioxide 24.6 mmol/L (24-32.6); Potassium 4.5 mmol/L (3.4-4.6); Total Protein 5.6 gm/dL (6.2-8.2)
[2018-12-28 06:09] LABS: Prothrombin Time (Patient) 40.8 Seconds (9.1-10.7)
[2018-12-28 06:59] LABS: INR 4.36 INR (0.92-1.08)
[2018-12-28 07:28] LABS: Magnesium 2.5 mg/dL (1.2-2.8); Phosphorus 6.1 mg/dL (2.2-4.2)
--- NOTE | 2018-12-28 07:33 | PN ---
Subjective - Date and Time Seen Date: 12/28/18 Time: 07:22 Subjective Narrative: Patient reports still feeling tired. His left leg seems to spasm when anyone walks in the room. He is making urine. Denies chest complaints. Objective - Review of Systems Generalized/Overall Review: Denies: Fever Respiratory: Denies: Shortness of Breath Cardiac: Denies: Chest Pain, Edema Abdominal: Denies: Nausea Genitourinary Symptoms: Reports: No Symptoms Reported Musculoskeletal Complaints: Reports: Joint Pain - S/P bilateral knee replacements last week Skin: Reports: No Symptoms Reported - Vitals Vitals: Last Vital Signs Temp 36.5 C 12/28/18 04:18 Pulse 74 12/28/18 04:18 Resp 16 12/28/18 04:18 BP 105/49 12/28/18 04:18 Pulse Ox 92 L 12/28/18 04:18 - Abnormal Lab Findings Abnormal Lab Findings: Abnormal Lab Results 12/28/18 12/28/18 Range/Units 05:50 05:50 PT 40.8 H (9.1-10.7) Seconds INR (Anticoag Therapy) 4.36 H* (0.92-1.08) INR Anion Gap 15.9 H (6.8-13.8) mmol/L BUN 97 H (6-23) mg/dL Creatinine 4.02 H D (0.4-1.4) mg/dL Est GFR (Non-Af Amer) 16 L D (60-130) mL/min BUN/Creatinine Ratio 24.1 H (9.0-21.6) Random Glucose 111 H (70-110) mg/dL AST 74 H (0-48) U/L ALT 13 L (19-67) U/L Total Protein 5.6 L (6.2-8.2) gm/dL Albumin 2.3 L (3.4-5.0) gm/dl - Exam Constitutional: Present: Alert, Cooperative, Obese Respiratory: Present: no respiratory distress. Absent: rales, rhonchi Cardiovascular/Chest: Present: regular rate, rhythm Abdomen: Present: nontender, obese Extremity: Present: other - bilateral lower legs in TOMAS hose Neurologic: Present: normal mood/affect Cauti Physician Documentation - Urinary Catheter Management Urethral (Herrera) Urethral Indwelling: No Date of Insertion: 12/20/18 Time of Insertion: 08:00 Date of Removal: 12/23/18 Time of Removal: 11:15 Assessment/Plan - Problems/Diagnosis (1) Acute renal injury Problem: Acute Narrative: Creatinine increased and GFR decreased from yesterday, with a ratio of 24. Pre- renal. Did not improve with fluids over the weekend. His blood pressure has been lower than his normal, but he's not been hypotensive. Nephrotoxic meds have been held. Discussed with nephrology at [facility], who recommends a visit with him, requiring transfer. Herrera catheter has been placed. (2) Hypertension Problem: Chronic Qualifiers: Narrative: Enalapril and HCTZ have been held for ERIN, and his blood pressure has been in the low 100's/50's. (3) Postoperative anemia Problem: Acute Narrative: His decreased renal function is also likely contributing. Hgb of 8.2 this morning. Transfuse if less than 7.0. (4) Chronic renal disease, stage 3, moderately decreased glomerular filtration rate (GFR) between 30-59 mL/min/1.73 square meter Problem: Chronic (5) Aspiration into lower respiratory tract Problem: Resolved Qualifiers: Encounter type: initial encounter Qualified Code(s): T17.800A - Unspecified foreign body in other parts of respiratory tract causing asphyxiation, initial encounter
[2018-12-28] MEDS: METOPROLOL TARTRATE 25 MG TABLET PO SCH (08:42)
[2018-12-28] MEDS: ESCITALOPRAM OXALATE 10 MG TAB PO SCH (08:42)
[2018-12-28] MEDS: PANTOPRAZOLE SODIUM 40 MG TABLET.EC PO SCH (08:43)
[2018-12-28] MEDS: ALLOPURINOL 300 MG TABLET PO SCH (08:43)
[2018-12-28] MEDS: MORPHINE SULFATE 15 MG TABLET.SA PO SCH (08:43)
[2018-12-28] MEDS: MESALAMINE 0.75 GM PO SCH (08:43)
[2018-12-28] MEDS ORDERED: CALCIUM ACETATE 667 MG CAPSULE PO SCH (09:00)
--- NOTE | 2018-12-28 09:25 | DS ---
Transfer Discharge Summary - Diagnosis(s)/Problems (1) Acute renal injury Problem: Acute (2) Hypertension Problem: Chronic (3) Postoperative anemia Problem: Acute (4) Chronic renal disease, stage 3, moderately decreased glomerular filtration rate (GFR) between 30-59 mL/min/1.73 square meter Problem: Chronic (5) Aspiration into lower respiratory tract Problem: Resolved - Course Description of Stay: Patient was admitted for bilateral knee replacement surgeries. He underwent left knee replacement without difficulty on 12/20, and the right knee replacement on 12/22. In the OR after the surgery, he had some coffee ground emesis, and medicine was consulted to help manage the patient. He was started on clindamycin (has a PCN allergy) for potential aspiration pneumonia. CXR showed bilateral lower pulmonary opacities. He had "a little" shortness of breath the following day, but did not develop symptoms of pneumonia, and the clindamycin was stopped after three days. There was some concern for fluid overload from his immobility, and fluids were given judiciously. His hemoglobin decreased to 7.0 on 12/23, and he was given one U PRBC. His baseline creatinine looks to be around 1.9. His creatinine gradually increased. He was unable to participate in PT due to pain and fear of falling. His po intake was poor. As his creatinine continued to increase, he was given some fluids on 12/26, but his creatinine continued to increase. He did not have significant hypotension, but his home enalapril and HCTZ were held for BPs of 100's/50's, and his ERIN. The morning of 12/28, his creatinine was 4.02, and GFR decreased to 16. He is making urine. Nephrology in [place] was consulted, who recommend transfer for a nephrology visit, and placement of a kamara catheter. Phoslo was also started for a phosphorus level of 6.1. Ortho instructions: Continue with weightbearing as tolerated and range of motion as tolerated. It is okay to shower and get the wound wet as long as there is no drainage from the wound. Do not bathe or soak the wound. If there is any drainage from the wound keep the wound clean and dry and cover with dry gauze and tape. Change every 2- 3 days as needed if there is any drainage. Cover wound while showering if there is any drainage. Continue with physical therapy. Resume home diet. Report any fever over 101.5 Fahrenheit, uncontrolled pain, increased drainage, foul odor of drainage, new or increased calf pain or shortness of breath, or any other s ignificant complaints. He will continue with his Coumadin. He was supratherapeutic today and thus we will hold it until he is down below 3. Continue with TOMAS hose on the operative extremity until instructed otherwise. No driving until instructed otherwise. Follow up in approximately 10-14 days. Consultation Done:: Medicine Procedures Performed: see notes below - bilateral knee arthroplasty - Results and Findings Results and Findings: Laboratory Results - last 24 hr 12/28/18 12/28/18 12/28/18 05:50 05:50 07:16 PT 40.8 H INR (Anticoag Therapy) 4.36 H* Sodium 138 Plasma Sodium 138 Potassium 4.5 Chloride 102 Carbon Dioxide 24.6 Anion Gap 15.9 H BUN 97 H Creatinine 4.02 H D Est GFR (Non-Af Amer) 16 L D BUN/Creatinine Ratio 24.1 H Random Glucose 111 H Calcium 8.8 Calcium Adj for Albumin 9.8 Phosphorus 6.1 H Magnesium 2.5 Total Bilirubin 0.4 AST 74 H ALT 13 L Alkaline Phosphatase 91 Total Protein 5.6 L Albumin 2.3 L - Medications Medications: Active Medications Allopurinol (Zyloprim) 300 mg PO DAILY [facility] Stop: 01/20/19 09:01 Last Admin: 12/28/18 08:43 Dose: 300 mg Documented by: Calcium Acetate (Phoslo) 667 mg PO TID [facility] Stop: 01/27/19 09:01 Last Admin: 12/28/18 08:43 Dose: 667 mg Documented by: Enalapril Maleate (Vasotec) 10 mg PO DAILY [facility] Stop: 01/20/19 09:01 Last Admin: 12/26/18 10:00 Dose: 10 mg Documented by: Escitalopram Oxalate (Lexapro) 10 mg PO DAILY [facility] Stop: 01/20/19 09:01 Last Admin: 12/28/18 08:42 Dose: 10 mg Documented by: Hydrochlorothiazide (Hydrodiuril) 25 mg PO DAILY [facility] Stop: 01/20/19 09:01 Last Admin: 12/26/18 10:00 Dose: 25 mg Documented by: Dextrose/Lactated Ringer's (Dextrose 5%-Lr) 1,000 mls @ 125 mls/hr IV .Q8H PRN PRN Reason: HYDRATION Stop: 01/19/19 09:39 Last Infusion: 12/23/18 15:31 Dose: Infused Documented by: Lactated Ringer's (Lactated Ringers) 1,000 mls @ 125 mls/hr IV .Q8H PRN PRN Reason: HYDRATION Stop: 01/21/19 00:34 Last Infusion: 12/22/18 11:00 Dose: Infused Documented by: Dextrose/Lactated Ringer's (Dextrose 5%-Lr) 1,000 mls @ 125 mls/hr IV .Q8H PRN PRN Reason: HYDRATION Stop: 01/21/19 10:08 Last Infusion: 12/23/18 02:37 Dose: Infused Documented by: Magnesium Hydroxide (Milk Of Magnesia) 30 ml PO DAILY PRN PRN Reason: Constipation Stop: 01/19/19 09:39 Last Admin: 12/27/18 06:09 Dose: 30 ml Documented by: Metoprolol Tartrate (Lopressor) 25 mg PO BID [facility] Stop: 01/19/19 21:01 Last Admin: 12/28/18 08:42 Dose: 25 mg Documented by: Morphine Sulfate (Ms Contin) 15 mg PO Q12H [facility] Stop: 01/21/19 21:01 Last Admin: 12/28/18 08:43 Dose: 15 mg Documented by: Mesalamine [Apriso] (0.75 G) 0.75 g PO BID [facility] Stop: 01/19/19 21:01 Last Admin: 12/28/18 08:43 Dose: Not Given Documented by: Oxycodone/Acetaminophen (Percocet 5 Mg/325 Mg) 2 tab PO Q4H PRN PRN Reason: Moderate Pain (pain scale 4-6) Stop: 01/19/19 09:39 Last Admin: 12/27/18 11:26 Dose: 2 tab Documented by: Pantoprazole Sodium (Protonix) 40 mg PO DAILY [facility] Stop: 01/21/19 17:01 Last Admin: 12/28/18 08:43 Dose: 40 mg Documented by: Senna/Docusate Sodium (Senokot-S) 2 tab PO HS [facility] Stop: 01/19/19 21:01 Last Admin: 12/27/18 20:53 Dose: 2 tab Documented by: Discontinued Medications Cefazolin Sodium (Ancef) 2 gm IV PRN PRN; Protocol PRN Reason: PERIOPERATIVE ANTIBIOTICS Stop: 12/20/18 23:00 Last Admin: 12/20/18 08:00 Dose: 2 gm Documented by: Cefazolin Sodium (Ancef) 2 gm IV PRN PRN; Protocol PRN Reason: PERIOPERATIVE ANTIBIOTICS Stop: 12/22/18 23:00 Last Admin: 12/22/18 08:30 Dose: 2 gm Documented by: Clindamycin HCl (Cleocin) 450 mg PO Q8H [facility]; Protocol Stop: 12/25/18 07:46 Last Admin: 12/25/18 07:30 Dose: 450 mg Documented by: Enoxaparin Sodium (Lovenox) 40 mg SC Q24H [facility] Stop: 01/20/19 08:40 Last Admin: 12/22/18 11:23 Dose: Not Given Documented by: Furosemide (Lasix) 20 mg IV ONCE ONE Stop: 12/23/18 07:36 Last Admin: 12/23/18 08:04 Dose: 20 mg Documented by: Lactated Ringer's (Lactated Ringers) 1,000 mls @ 175 mls/hr IV .Q5H43M PRN PRN Reason: HYDRATION Stop: 12/20/18 23:59 Last Infusion: 12/21/18 01:45 Dose: Infused Documented by: Tranexamic Acid 1,000 mg/ (Sodium Chloride) 110 mls @ 600 mls/hr IV PRN PRN PRN Reason: blood loss reduction Stop: 12/20/18 23:00 Last Infusion: 12/20/18 09:11 Dose: Infused Documented by: Ropivacaine 100 mg/Epinephrine HCl 0.2 mg/Ketorolac Tromethamine 30 mg/Sodium Chloride 111.2 mls @ 0.01 mls/hr IJ PRN PRN PRN Reason: JOINT INJECTION Stop: 12/20/18 23:59 Last Admin: 12/20/18 08:56 Dose: 0.01 mls/hr Documented by: Cefazolin Sodium 1 gm/ (Dextrose/Water) 100 mls @ 200 mls/hr IV Q6H [facility]; Protocol Stop: 12/21/18 00:08 Last Infusion: 12/20/18 23:22 Dose: Infused Documented by: Ropivacaine 100 mg/Epinephrine HCl 0.2 mg/Ketorolac Tromethamine 30 mg/Sodium Chloride 111.2 mls @ 0.01 mls/hr IJ PRN PRN PRN Reason: JOINT INJECTION Stop: 12/22/18 23:59 Last Admin: 12/22/18 09:24 Dose: 0.01 mls/hr Documented by: Tranexamic Acid 1,000 mg/ (Sodium Chloride) 110 mls @ 600 mls/hr IV PRN PRN PRN Reason: blood loss reduction Stop: 12/22/18 23:00 Last Infusion: 12/22/18 09:44 Dose: Infused Documented by: Pantoprazole Sodium 80 mg/ (Sodium Chloride) 100 mls @ 400 mls/hr IV ONCE ONE Stop: 12/22/18 08:58 Last Infusion: 12/22/18 09:22 Dose: Infused Documented by: Cefazolin Sodium 1 gm/ (Dextrose/Water) 100 mls @ 200 mls/hr IV Q6H [facility]; Protocol Stop: 12/23/18 00:37 Last Infusion: 12/23/18 00:20 Dose: Infused Documented by: Sodium Chloride (Sodium Chloride 0.9%) 1,000 mls @ 999 mls/hr IV .Q1H1M ONE Stop: 12/22/18 18:50 Last Infusion: 12/22/18 19:00 Dose: Infused Documented by: Sodium Chloride (Sodium Chloride 0.9%) 1,000 mls @ 125 mls/hr IV .Q8H [facility] Stop: 12/26/18 23:11 Last Admin: 12/26/18 16:00 Dose: Not Given Documented by: Sodium Chloride (Sodium Chloride 0.9%) 500 mls @ 80 mls/hr IV .Q6H15M [facility] Stop: 12/26/18 21:26 Last Infusion: 12/26/18 22:12 Dose: Infused Documented by: Morphine Sulfate (Ms Contin) 15 mg PO PREOP PRN PRN Reason: preop pain Stop: 12/20/18 23:59 Last Admin: 12/20/18 07:26 Dose: 15 mg Documented by: Morphine Sulfate (Ms Contin) 15 mg PO Q12H [facility] Stop: 12/21/18 21:59 Last Admin: 12/21/18 21:01 Dose: 15 mg Documented by: Warfarin Sodium (Coumadin) 4 mg PO DAILY@1700 [facility] Stop: 01/21/19 17:01 Last Admin: 12/26/18 16:47 Dose: 4 mg Documented by: - Disposition Disposition: SNF Condition: Fair Discharge Date: 12/28/18
[2018-12-28 10:54] VITALS: BP 102/47
[2018-12-29] MEDS ORDERED: WARFARIN SODIUM 1 TAB TAB PO SCH (17:00)
== END 2018-12-28 11:39 | DRG 462 ==
LOC: MS 06:16 → EDSTATUS 08:00
PROVIDERS: ADMIT Orthopaedic Surgery; ATTEND Orthopaedic Surgery
DX: K50.90 Crohn's disease, unspecified, without complications; N18.3 Chronic kidney disease, stage 3 (moderate); K44.9 Diaphragmatic hernia without obstruction or gangrene; I10 Essential (primary) hypertension; I48.2 Chronic atrial fibrillation; I12.9 Hypertensive chronic kidney disease with stage 1 through stage 4 chronic kidney disease, or unspecified chronic kidney disease; E83.51 Hypocalcemia; T17.800A Unspecified foreign body in other parts of respiratory tract causing asphyxiation, initial encounter; N17.9 Acute kidney failure, unspecified; M17.0 Bilateral primary osteoarthritis of knee; K21.9 Gastro-esophageal reflux disease without esophagitis; D62 Acute posthemorrhagic anemia; F41.9 Anxiety disorder, unspecified
CPT/HCPCS: 36415; 71010; 71045; 73560; 80048; 80053; 83735; 84100; 85014; 85018; 85025; 85027; 85610; 86850; 97110; 97116; 97161; 97164; 97165; 97530; P9016

== ENCOUNTER 2019-10-21 06:00 | Inpatient (IN) ==
[~2019-10-21 06:00] MED LIST changes: -ROPIVACAINE HCL/PF 100 MG, EPINEPHrine 0.2 MG, KETOROLAC TROMETHAMINE 30 MG in NORMAL S... IJ PRN
[2019-10-21] MEDS ORDERED: ceFAZolin SODIUM 1 GM VIAL ONE (06:29)
[2019-10-21] MEDS ORDERED: ISOPROPYL ALCOHOL 480 APPL BTL MC ONE (06:30)
[2019-10-21] MEDS: RINGER'S SOLUTION,LACTATED 1,000 ML IV PRN ×3 (06:50→09:30)
--- NOTE | 2019-10-21 07:26 | ANES ---
Anesthesia Pre Procedure Eval Vitals/Labs: Last Vital Signs Temp 36.7 C 10/21/19 06:07 Pulse 73 10/21/19 06:07 Resp 12 10/21/19 06:07 BP 152/67 H 10/21/19 06:07 Pulse Ox 97 10/21/19 06:07 HOME MEDICATIONS metoprolol tartrate 25 mg tablet 25 mg PO BID 30 Days #60 tab 12/09/17 [Last Taken 12/20/18] warfarin 2 mg tablet 2 mg PO DAILY 90 Days #180 tab 12/09/17 [Last Taken 10/14/19] omeprazole 40 mg capsule,delayed release 40 mg PO DAILY PRN #90 cap 10/07/18 [Last Taken Unknown] mesalamine 0.375 gram capsule,extended release 24 hr 0.75 g PO BID 90 Days #360 cap 10/27/18 [Last Taken 12/18/18] ferrous sulfate 325 mg (65 mg iron) tablet 325 mg PO BID #60 tab 01/12/19 [Last Taken Unknown] allopurinol 300 mg tablet 300 mg PO DAILY #90 tab 04/21/19 [Last Taken Unknown] acetaminophen 500 mg tablet 1,000 mg PO Q6H PRN tab 05/31/19 [Last Taken Unknown] enalapril maleate 10 mg tablet 10 mg PO DAILY #90 tab 09/13/19 [Last Taken Unknown] escitalopram oxalate 10 mg tablet 10 mg PO DAILY #90 tab 09/13/19 [Last Taken Unknown] Cyclobenzaprine HCl 5 mg PO Q8H PRN 10/21/19 [Last Taken Unknown] Allergies/Adverse Reactions: Allergies Allergy/AdvReac Type Severity Reaction Status Date / Time Penicillins Allergy Intermediate SWOLLEN Verified 10/21/19 06:24 LIPS, HIVES caffeine AdvReac Mild Diarrhea Verified 10/21/19 06:24 - Planned Procedure Planned Procedure: Arthroplasty Total Shoulder Reverse Medication List Reviewed:: Yes Allergies Verified: Yes Medical History (Last Reviewed 10/21/19 @ 07:20 by Adriano Hancock CRNA) Left foot pain (Acute) Onset Date: Unknown Hypertension (Chronic) Onset Date: Unknown Crohn disease (Chronic) Onset Date: Unknown Anxiety Onset Date: Unknown Bilateral knee pain Onset Date: Unknown Bunionectomy of Left 5th Toe Degenerative joint disease involving multiple joints Onset Date: Unknown Bilateral knee Gout Paroxysmal A-fib Onset Date: ~11/2017 Psoriasis Onset Date: Unknown Right foot pain Onset Date: ~2017 Arthritis Onset Date: Unknown History of stress test Onset Date: ~05/20/16 Surgical History (Last Reviewed 10/21/19 @ 07:20 by Adriano Hancock CRNA) History of bunionectomy Onset Date: ~[address] Orellana Hx of total knee arthroplasty Onset Date: ~2018 Left TKA 12-20-18 and Right TKA 12-22-18 Dr. Farias S/P bunionectomy Onset Date: ~04/30/18 Excision of right fifth metatarsal head Dr. Farias H/O colonoscopy Onset Date: ~03/27/15 Dr. Woodson polyp biopsy: hyperplastic polyp, rectum biopsy; patchy and focal mild active colitis with cryptitis; 2017- [place] H/O tympanomastoidectomy Onset Date: ~06/03/16 Right - Dr. Whelan Family History (Last Reviewed 10/21/19 @ 07:21 by Adriano Hancock CRNA) Mother , late in her late 60's Lung cancer Father - Family Anesthesia History Family History:: no untoward family reactions to anesthesia, no familial bleeding tendencies, no family history of clotting disorders, no family history of premature - Airway/Neck/Teeth Within Normal Limits:: Yes Teeth Condition: missing Mallampatti Score: 3 Thyromental (T-M) distance: > 6 cm Mandibulo Hyoid distance: > 3 cm - Respiratory Respiratory Physical: lungs clear Smoking Status: Never smoker Discussed smoking cessation including day of surgery: No Sleep Apnea currently treated: No Sleep Apnea by current assessment: No Discussed Risks/Treatment of TIM: No - Cardiovascular Tolerate Activity: Poor Heart Sounds: S1 & S2, Regular - Gastrointestinal NPO since: mn - Anesthesia Assessment and Plan ASA Class: PS, III Anesthesia Type Plan: General LMA, Block - Right ultrasound guided interscalene nerve block for postop analgesia
[2019-10-21] MEDS ORDERED: LIDOCAINE HCL 20 ML VIAL ONE (07:32)
[2019-10-21] MEDS ORDERED: fentaNYL CITRATE/PF 50 MCG/ML AMPUL ONE (07:32)
[2019-10-21] MEDS ORDERED: BUPIVACAINE HCL/EPINEPHRINE/PF 30 ML VIAL IJ ONE (07:32)
[2019-10-21] MEDS ORDERED: ROCURONIUM BROMIDE 10 MG/ML VIAL ONE (07:33)
[2019-10-21] MEDS ORDERED: NEOSTIGMINE METHYLSULFATE 1 MG/ML VIAL ONE (07:33)
[2019-10-21] MEDS ORDERED: GLYCOPYRROLATE 0.2 MG/ML VIAL ONE (07:33)
[2019-10-21] MEDS ORDERED: SUCCINYLCHOLINE CHLORIDE 20 MG/ML VIAL ONE (07:33)
[2019-10-21] MEDS ORDERED: ONDANSETRON HCL/PF 2 MG/ML VIAL ONE (07:33)
[2019-10-21] MEDS ORDERED: PROPOFOL VIAL IV ONE (07:33)
[2019-10-21 07:37] LABS: INR 1.13 INR (0.92-1.08); Prothrombin Time (Patient) 11.1 Seconds (9.1-10.7)
[2019-10-21] MEDS ORDERED: ZOLPIDEM TARTRATE 5 MG TABLET PO PRN (09:51)
[2019-10-21] MEDS ORDERED: MAG HYDROX/ALUMINUM HYD/SIMETH 30 ML UDC PO PRN (09:51)
[2019-10-21] MEDS ORDERED: MAGNESIUM HYDROXIDE 30 ML UDC PO PRN (09:51)
[2019-10-21] MEDS ORDERED: ONDANSETRON HCL/PF 2 MG/ML VIAL IV PRN (09:51)
[2019-10-21] MEDS ORDERED: MORPHINE SULFATE 2 MG/ML DISP.SYRIN IV PRN (09:51)
[2019-10-21] MEDS ORDERED: ACETAMINOPHEN 500 MG TABLET PO PRN (09:51)
[2019-10-21] MEDS ORDERED: diphenhydrAMINE HCL 50 MG/ML VIAL IV PRN (09:51)
--- NOTE | 2019-10-21 09:51 | OR ---
Operative Report - Dictated Report Narrative: DATE OF PROCEDURE: 10/21/2019 PHYSICIAN: Casimiro Farias MD MASKING MACHINE OPERATOR: Ken Nieves PA-C (provided and essential set of skilled, educated hands that assisted with transfer, positioning, prepping, draping, manipulation, retraction, placement of implants, irrigation, closure wounds, and application of dressings all which cannot be performed by the available surgical crew) PREOPERATIVE DIAGNOSIS: Right rotator cuff deficient shoulder arthrosis. POSTOPERATIVE DIAGNOSIS: Right rotator cuff deficient shoulder arthrosis. OPERATIONS AND PROCEDURES: Right reverse total shoulder arthroplasty. ANESTHESIA: General plus regional. COMPLICATIONS: None. DRAINS: None. SPECIMENS: Bone. ESTIMATED BLOOD LOSS: 75 mL. RETAINED IMPLANTS: 1. DePuy Delta Xtend cementless metaglene. 2. Delta Xtend glenosphere, 38 mm standard. 3. Delta Xtend size 10 modular humeral CHEN-coated cementless stem. 4. Size 2 right modular eccentric epiphysis CHEN-coated cementless. 5. Delta Xtend standard polyethylene size 38 plus 6 mm. 6. Metaglene locking screws, 42 mm and 36 mm in length. 7. Nonlocking metaglene screws, 18,24 mm. INDICATIONS FOR PROCEDURE: Mr. Joseph is a 74-year-old gentleman with significant past history of rotator cuff tears and deficiency. He had treated these conservatively and had an irreparable rotator cuff with some progression of arthrosis of the shoulder and difficulty with activities of daily living in pain. He was seen in clinic and had failed conservative measures. He wished to proceed with surgical treatment. The risks, benefits, and alternatives were discussed in clinic, including the risk of , blood clots, bleeding, infection, nerve/tendon/blood vessel injury, malposition of components, failure of components, wear or limited range of motion, stiffness, and need for additional procedures, and she wished to proceed. Consent was obtained here in the clinic. DESCRIPTION OF PROCEDURE: After marking the correct extremity in the preoperative holding area, the patient was taken to the operating room. A timeout was performed. IV antibiotics consisting of Ancef were administered prior to procedure. The regional followed by general anesthetic was induced by the nurse snorkelling instructor at my request. He was then transitioned to beach chair position with all bony prominences well padded. The head in neutral, legs with SCDs and supported,and the nonoperative arm supported. The surgical arm was prescrubbed with alcohol then prepped and draped in the standard sterile fashion and the skin was covered with ioban. A deltopectoral incision was made and blunt dissection was carried down through the skin. The cephalic vein was identified, protected, and retracted. We then went through the deltopectoral interval, exposing the proximal humerus. It was noted that there was no rotator cuff, supraspinatus and infraspinatus tendon, or teres minor tendon. The subscapularis was intact as well as the biceps. A tag suture was placed in subscapularis tendon as well as the anterior capsule, and this was elevated off the anterior humerus passing along the bicipital groove and into the rotator cuff interval, exposing the proximal humerus. This was then freed off the proximal humerus. A biceps tenotomy was performed and the shoulder was dislocated. The humeral head was noted to show signs of arthrosis. Next, an entry drill was placed down the humerus centered on the longitudinal axis entering off just onto the articular surface on the humeral head. Next were serial reamers up to the size 10 were utilized, which gave good overall cortical contact. Next, a proximal humeral head cut was performed. We made the cut at approximately 10 degrees of retroversion. This appeared to resect an appropriate amount of humeral head. This was then pinned into place and an oscillating saw was utilized to cut this humeral head, protecting the surrounding soft tissues. We then placed a cap over the proximal humerus and turned our attention to the glenoid. The soft tissues were then elevated off the humeral neck as well as circumferentially around the glenoid. The glenoid was exposed. The remaining biceps tendon and labrum were resected. Using tractors, the glenoid was exposed and a guidewire was placed just posterior and inferior to the center of the glenoid. This was made so that it directed slightly superiorly but otherwise perpendicular to the glenoid on the axillary plane. Protecting the surrounding soft tissues, a reamer was utilized in order to remove the remaining cartilage. A tapper hand was utilized in order to resect the superior cartilage, and this resulted in a good overall appearance of the glenoid. The center drill lug hole was drilled and had good circumferential bone. The metaglene was then impacted into place and oriented for placement of screws along the mid plane in the sup erior and inferior quadrants of the glenoid as well as anterior to posterior screws. These were drilled and had appropriate overall length of screws on the superior and inferior metaglene screws. Good purchase was obtained with a 36 mm screw superiorly and 42 mm screw inferiorly. The anterior and posterior screws were drilled and 24 mm anterior and 18mm posterior nonlocking screws were placed. We then locked the superior and inferior screws into place. This gave good overall compression down to the glenoid with flat overall appearance and an appropriate alignment. We returned our attention to the proximal humerus. The proximal humeral reaming guide was placed for an eccentric reamer. This was utilized in order to prepare the proximal humerus. The trial stem was assembled on the back table and impacted into place. After placing the trial stem, we then returned to the metaglene. The glenosphere was then secured to the metaglene, impacted, and tightened ensuring that this was seated completely. We then returned to the humeral component and placed the trials of polyethylene inserts and found that the 6mm gave good overall longitudinal traction with no gapping. The shoulder was able to reach 140 degrees degrees of forward flexion and 130 degrees degrees of abduction, external rotation was to 80 degrees degrees and with fulcrum and armpit were unable to hinge the joint out of place, and there was no essentially no gapping of the polyethylene off the humeral head nor any signs of impingement on the glenoid neck. We felt that these were the appropriately placed and sized implants. We then dislocated the shoulder, removed the trial implants, thoroughly irrigated the humerus, impacted the final implants into place in the prior determined retroversion. The trial polyethylene was utilized again and was noted that the actual stem and the trial stem were equal in tension, and thus the final polyethylene was impacted into place. The shoulder was reduced, again noted to be stable, was then thoroughly irrigated. The deltopectoral interval was closed with #0 Vicryl. The deep tissues were then closed with #0 Vicryl, subcutaneous with 3-0 Vicryl, and the skin with sandra. Xeroform, 4 x 4, ABD, soft roll, and full arm Paulino was applied. The patient was placed in a shoulder sling, awoken, and transferred to postanesthesia care in stable condition. All sponge, needle, and instrument counts were correct prior to closing the wounds. We will obtain postoperative films and be admitted to the floor for postoperative pain control, IV antibiotics, and starting of physical therapy. I anticipate a one to two night hospital stay.
[2019-10-21] MEDS ORDERED: PANTOPRAZOLE SODIUM 40 MG TABLET.EC PO PRN (09:54)
[2019-10-21] MEDS ORDERED: CYCLOBENZAPRINE HCL 10 MG TABLET PO PRN (09:54)
--- NOTE | 2019-10-21 10:12 | ANES ---
Anesthesia Procedure Note Procedure Note: ANESTHESIA PROCEDURE NOTE Date of Procedure: 10/21/2019. Time of procedure: 729. Performed by: Adriano Hancock CRNA Fire Marshal: None. Preprocedure diagnosis: Right rotator cuff deficient shoulder arthrosis. Post procedure diagnosis: Same. Procedure: Right ultrasound guided interscalene nerve block for postoperative analgesia. Indications: The patient is a 74-year-old male, requesting right ultrasound- guided interscalene nerve block for postoperative analgesia related to right reverse total shoulder arthroplasty. Findings: See below. Details of the procedure: The tissue over the intended target site was cleansed with ChloraPrep. 1 ml Lidocaine 1 % was infiltrated to the skin and subcu taneous tissue. Under sterile technique and ultrasound guidance a 22-gauge block needle was inserted to the right brachial plexus nerve bundle between the anterior scalene and the middle scalene muscles. 30 mL's of 0.5% bupivacaine plus epinephrine 1:200,000 was injected after negative aspiration for blood. Needle tip and spread of local anesthetic around the brachial plexus was observed throughout the injection with realtime ultrasound visualization. The needle was removed intact. No complications were noted. The images were retained in the hospital medical database. EBL: Minimal. Fluids: N/A. Specimen: N/A. Post procedure condition: The patient tolerated the procedure well. No complications were noted. Thank you for this consultation. Adriano Hancock CRNA
[2019-10-21] MEDS: ceFAZolin SODIUM 1 GM in DEXTROSE 5 % IN WATER 100 ML IV SCH ×6 (11:01→23:35)
[2019-10-21] MEDS: DEXTROSE 5%-LACTATED RINGERS 1,000 ML IV PRN ×2 (11:07→19:36)
--- NOTE | 2019-10-21 11:54 | ANES ---
Post Anesthesia Assessment - Vital Signs Vitals: Last Vital Signs Temp 36.5 C 10/21/19 10:54 Pulse 70 10/21/19 10:54 Resp 16 10/21/19 10:54 BP 115/58 10/21/19 10:54 Pulse Ox 95 10/21/19 10:54 Airway Patency: Normal - Mental Status Level Of Consciousness: Awake - Pain Level Pain Score: 0 - N/V Assessment Nausea/Vomiting Presence: None Dehydration:: No
[2019-10-21] MEDS: oxyCODONE HCL/ACETAMINOPHEN 1 TAB TABLET PO PRN (16:43)
[2019-10-21] MEDS ORDERED: WARFARIN SODIUM 5 MG TABLET PO SCH (17:00)
[2019-10-21] MEDS: METOPROLOL TARTRATE 25 MG TABLET PO SCH (20:04)
[2019-10-21] MEDS: FERROUS SULFATE 325 MG TABLET PO SCH (20:04)
[2019-10-21] MEDS: MESALAMINE 0.75 GM PO SCH (20:05)
[2019-10-21] MEDS: MORPHINE SULFATE 15 MG TABLET.SA PO SCH (20:09)
[2019-10-21] MEDS ORDERED: SENNOSIDES/DOCUSATE SODIUM 1 TAB TABLET PO SCH (21:00)
[2019-10-22] MEDS: oxyCODONE HCL/ACETAMINOPHEN 1 TAB TABLET PO PRN ×3 (01:01→11:30)
[2019-10-22 06:15] LABS: Hematocrit 33.3 % (42.0-52.0); Hemoglobin 10.5 gm/dL (13.5-18.0); Mean Cell Volume 96.5 fl (78-100); Mean Corpuscular Hemoglobin 30.4 pg (27-31); Mean Corpuscular Hgb Conc 31.5 g/dl (32-36); Mean Platelet Volume 10.6 fl (8-11.3); Platelet Count 180 K/mm3 (150-450); Red Blood Count 3.45 M/mm3 (4.7-6.0); Red Cell Distribution Width 14.2 % (11.5-14.0); White Blood Count 8.9 K/mm3 (4.0-10.5)
[2019-10-22 06:26] LABS: Anion Gap 8.5 mmol/L (6.8-13.8); BUN/Creatinine Ratio 14.1 (9.0-21.6); Calcium * 8.4 mg/dL (7.9-10.9); Estimated Creat Clear 49.7; Potassium 4.5 mmol/L (3.4-4.6)
[2019-10-22 06:27] LABS: INR 1.22 INR (0.92-1.08)
[2019-10-22] MEDS ORDERED: ESCITALOPRAM OXALATE 10 MG TAB PO SCH (09:00)
[2019-10-22] MEDS ORDERED: ENALAPRIL MALEATE 5 MG TABLET PO SCH (09:00)
[2019-10-22] MEDS ORDERED: ALLOPURINOL 300 MG TABLET PO SCH (09:00)
[2019-10-22] MEDS: FERROUS SULFATE 325 MG TABLET PO SCH (09:36)
[2019-10-22] MEDS: METOPROLOL TARTRATE 25 MG TABLET PO SCH (09:41)
[2019-10-22] MEDS: MORPHINE SULFATE 15 MG TABLET.SA PO SCH (09:42)
[2019-10-22] MEDS: MESALAMINE 0.75 GM PO SCH (09:43)
--- NOTE | 2019-10-22 11:10 | DS ---
(1) S/p reverse total shoulder arthroplasty Problem: Acute Qualifiers: Laterality: right Qualified Code(s): Z96.611 - Presence of right artificial shoulder joint (2) Renal insufficiency Problem: Chronic (3) Shortness of breath on exertion Problem: Chronic (4) Acid reflux Problem: Chronic (5) Anxiety Problem: Chronic (6) Atrial fibrillation Problem: Chronic Qualifiers: (7) Chronic renal disease, stage 3, moderately decreased glomerular filtration rate (GFR) between 30-59 mL/min/1.73 square meter Problem: Chronic (8) Crohn disease Problem: Chronic Qualifiers: (9) Hiatal hernia with GERD Problem: Chronic (10) Hypertension Problem: Chronic Qualifiers: Date of Discharge:: 10/22/19 Hospital Course: Mr. Joseph was admitted to the floor after undergoing right reverse total shoulder arthroplasty. Tolerated this well. Was admitted to the floor postoperatively for 24 hours of IV antibiotics, pain control, medical comanagement, and occupational and physical therapy. OT and PT were consulted to assist with activities of daily living and ambulation. Was made non-weightbearing with postoperative range of motion per protocol . Pain was initially controlled with IV regimen. This was transitioned to oral once tolerating a by mouth intake. Was resumed on home diet and medications. Coumadin, SCDs were utilized for DVT prophylaxis. Vital signs remained stable to the hospital course. BMP was reviewed and was stable. Physical examination throughout the hospital course showed an extremity that had sensation that was intact to light touch, palpable pulses, a benign wound, motor intact to the hand, wrist and elbow. Once an oral pain regimen was tolerated and physical therapy goals were met, it was felt that they were stable for discharge to home. Instructions: Continue with nonweightbearing with range of motion per protocol. Keep dressings intact. Utilize sling. Cover wound while showering. Continue with physical therapy. Resume home diet. Report any fever over 101.5 Fahrenheit, uncontrolled pain, increased drainage, foul odor of drainage, new or increased calf pain or shortness of breath, or any other significant complaints. We will recheck his INR on Thursday. No driving until instructed otherwise. Follow up in approximately 2-3 weeks. Procedures Performed: see notes below List Procedures: Right reverse total shoulder arthroplasty Results and Findings: Lab Pending Results 10/21/19 07:25: PT 11.1 H, INR (Anticoag Therapy) 1.13 H 10/22/19 06:10: WBC 8.9, RBC 3.45 L, Hgb 10.5 L, Hct 33.3 L, MCV 96.5, MCH 30.4, MCHC 31.5 L, RDW 14.2 H, Plt Count 180, MPV 10.6 10/22/19 06:10: Sodium 139, Plasma Sodium 139, Potassium 4.5, Chloride 107 H, Carbon Dioxide 28.0, Anion Gap 8.5, BUN 18, Creatinine 1.28, Est GFR (Non-Af Amer) 58 L D, BUN/Creatinine Ratio 14.1, Random Glucose 106, Calcium 8.4 10/22/19 06:10: PT 12.0 H, INR (Anticoag Therapy) 1.22 H Discharge Location: Home Disposition: Home self-care Condition: Good Discharge Activity: Non-Weight bearing Discharge Diet: General/regular food Referrals: Jassi Christensen MD [Primary Care Provider] - Additional Patient Instructions (free text): Physical Therapy at [facility] in [place] on ThursdayOctober 23 at 11:45am. Please fax demographics and PT order to [phone]. Follow up Orthopedic office appointment on November 02 at 9:45am. Prescriptions (Any new or edited meds): Morphine Sulfate [Ms Contin] 15 mg PO Q12H #10 tablet.sa Transmission Status: Sent to [facility] oxyCODONE HCL/ACETAMINOPHEN [Percocet 5 MG/325 MG] 1 - 2 tab PO Q4H PRN #40 tab PRN Reason: Moderate Pain (Pain Scale 4-6) Transmission Status: Sent to [facility] Sennosides/Docusate Sodium [Senokot-S] 2 tab PO HS #60 tab Transmission Status: Pending to [facility] Complete Home Medications List: Complete Home Medication List: metoprolol tartrate 25 mg tablet 25 mg PO BID 30 Days #60 tab 12/09/17 warfarin 2 mg tablet 2 mg PO MOWEFR 90 Days #180 tab 12/09/17 omeprazole 40 mg capsule,delayed release 40 mg PO DAILY PRN #90 cap 10/07/18 mesalamine 0.375 gram capsule,extended release 24 hr 0.75 g PO BID 90 Days #360 cap 10/27/18 ferrous sulfate 325 mg (65 mg iron) tablet 325 mg PO BID #60 tab 01/12/19 allopurinol 300 mg tablet 300 mg PO DAILY #90 tab 04/21/19 enalapril maleate 10 mg tablet 10 mg PO DAILY #90 tab 09/13/19 escitalopram oxalate 10 mg tablet 10 mg PO DAILY #90 tab 09/13/19 Cyclobenzaprine HCl 5 mg PO Q8H PRN 10/21/19 Warfarin Sodium [Coumadin] 4 mg PO SUTUTHSA 10/21/19 Morphine Sulfate [Ms Contin] 15 mg PO Q12H #10 tablet.sa 10/22/19 Sennosides/Docusate Sodium [Senokot-S] 2 tab PO HS #60 tab 10/22/19 oxyCODONE HCL/ACETAMINOPHEN [Percocet 5 MG/325 MG] 1 - 2 tab PO Q4H PRN #40 tab 10/22/19 Amb Orders for Discharge: Prothrombin Time Time Frame: 10/26/19, Facility: [facility], Location: Laboratory
[2019-10-22 11:53] VITALS: BP 130/62
== END 2019-10-22 11:50 | disposition home or self-care (01) | DRG 483 ==
LOC: MS 06:00
PROVIDERS: ADMIT Orthopaedic Surgery; ATTEND Orthopaedic Surgery
DX: R06.02 Shortness of breath; F41.9 Anxiety disorder, unspecified; M19.011 Primary osteoarthritis, right shoulder; K21.9 Gastro-esophageal reflux disease without esophagitis; N18.3 Chronic kidney disease, stage 3 (moderate); K50.90 Crohn's disease, unspecified, without complications; I48.20 Chronic atrial fibrillation, unspecified; I48.91 Unspecified atrial fibrillation; K44.9 Diaphragmatic hernia without obstruction or gangrene; I12.9 Hypertensive chronic kidney disease with stage 1 through stage 4 chronic kidney disease, or unspecified chronic kidney disease
CPT/HCPCS: 36415; 73030; 80048; 85027; 85610; 97110; 97116; 97161; 97166; J2405

== ENCOUNTER 2020-09-12 14:06 | Observation (INO) ==
[2020-09-12] MEDS ORDERED: DILTIAZEM HCL 5 MG/ML VIAL IV ONE (14:36)
--- NOTE | 2020-09-12 14:41 | ERNOTE ---
Chest Pain/Cardiac HPI Date of Service: 09/12/20 Chief Complaint: Tachycardia Time Seen by Provider: 09/12/20 14:23 Source: patient, RN notes reviewed, past records Exam Limitations: no limitations Immunizations: IMMUNIZATION HX Immunizations Up to Date Yes Immunizations Comment full COVID vaccine History of Influenza Vaccine Yes Hx Pneumococcal Vaccination Yes Allergies/Adverse Reactions: Allergies Penicillins Allergy (Intermediate, Verified 09/12/20 14:22) SWOLLEN LIPS, HIVES caffeine Adverse Reaction (Mild, Verified 09/12/20 14:22) Diarrhea Home Medications: HOME MEDICATIONS warfarin 2 mg tablet 4 mg PO MOWEFR 90 Days #180 tab 12/09/17 [Last Taken 10/14/19] omeprazole 40 mg capsule,delayed release 40 mg PO DAILY PRN #90 cap 10/07/18 [Last Taken Unknown] Cyclobenzaprine HCl 5 mg PO Q8H PRN 10/21/19 [Last Taken Unknown] Warfarin Sodium [Coumadin] 2 mg PO SUTUTHSA 10/21/19 [Last Taken Unknown] Ferrous Sulfate [Iron] 325 mg PO DAILY 10/25/19 [Last Taken Unknown] acetaminophen 500 mg tablet 500 mg PO Q6H PRN 11/24/19 [Last Taken Unknown] escitalopram oxalate 10 mg tablet 10 mg PO DAILY #90 tab 12/20/19 [Last Taken Unknown] enalapril maleate 10 mg tablet 10 mg PO DAILY #90 tab 03/26/20 [Last Taken Unknown] furosemide 20 mg tablet 20 mg PO DAILY #90 tab 06/04/20 [Last Taken Unknown] metoprolol tartrate 25 mg tablet 25 mg PO DAILY #90 tab 06/05/20 [Last Taken Unknown] Allopurinol [Zyloprim] 300 mg PO DAILY 09/12/20 [Last Taken Unknown] Pain Score #1 Pain Score: 0 Narrative: Javon is a 75-year-old male who presents to the emergency department for tachycardia. He saw his doctor today for weakness. He reports that he has been weak and tired for some time and the symptoms have been gradually worsening. He also reports that he is having a lot of anxiety because he and his are not getting along. He has a history of atrial fib and is anticoagulated on Coumadin. He is on metoprolol 25 mg daily but has not taken this today. His heart rate was in the 140s in clinic. His PCP ordered lab work which was drawn prior to the patient coming to the ED. His CBC and CMP are unremarkable. His INR is therapeutic at 2.98. He denies any chest pain or shortness of breath. Associated Symptoms: Absent: headache, dizziness, syncope, cough, shortness of breath, palpitations Prior Treatment: Denies: recently seen Review of Systems - Review of Systems Constitutional: Present: fatigue. Absent: recent illness, fever, chills EYE: Present: no symptoms reported ENT: Absent: ear pain, nose congestion, nasal drainage, sore throat Respiratory: Absent: shortness of breath, cough, orthopnea Cardiology: Absent: chest pain, palpitations, edema Gastrointestinal/Abdominal: Absent: nausea, vomiting, diarrhea Genitourinary: Present: no symptoms reported Skin: Absent: rash, lesions Neurological: Absent: headache, dizziness/light-headedness Endocrine: Present: no symptoms reported Hematologic/Lymphatic: Present: easy bruising, easy bleeding Psych: Present: anxiety Medical History (Last Reviewed 09/12/20 @ 16:05 by Marietta Chowdhury NP) COVID-19 vaccine series completed (Acute) COVID-19 vaccine administered (Acute) Left foot pain (Acute) Onset Date: Unknown Hypertension (Chronic) Onset Date: Unknown Crohn disease (Chronic) Onset Date: Unknown Anxiety Onset Date: Unknown Bilateral knee pain Onset Date: Unknown Bunionectomy of Left 5th Toe Degenerative joint disease involving multiple joints Onset Date: Unknown Bilateral knee Gout Paroxysmal A-fib Onset Date: ~11/2017 Psoriasis Onset Date: Unknown Right foot pain Onset Date: ~2017 Arthritis Onset Date: Unknown History of stress test Onset Date: ~05/20/16 Surgical History: Surgical History (Last Reviewed 09/12/20 @ 16:05 by Marietta Chowdhury NP) History of bunionectomy Onset Date: ~[address] Orellana Hx of shoulder surgery Onset Date: 10/21/19 Right reverse total shoulder arthroplasty - Hx of total knee arthroplasty Onset Date: ~2018 Left TKA 12-20-18 and Right TKA 12-22-18 Dr. Farias S/P bunionectomy Onset Date: ~04/30/18 Excision of right fifth metatarsal head Dr. Farias H/O colonoscopy Onset Date: ~03/27/15 Dr. Woodson polyp biopsy: hyperplastic polyp, rectum biopsy; patchy and focal mild active colitis with cryptitis; 2018- [facility] H/O tympanomastoidectomy Onset Date: ~06/03/16 Right - Dr. Whelan Family History: Family History (Last Reviewed 09/12/20 @ 16:06 by Marietta Chowdhury NP) Mother , late in her late 60's Lung cancer Father Social History: (Last Reviewed 09/12/20 @ 16:06 by Marietta Chowdhury NP) Social History: adopted: No halfway: No Marital status: lives independently: Yes household members: spouse current occupational status: retired current occupation: retired Highest level of school completed/degree received: high school graduate Tobacco: Smoking Status: Never smoker Alcohol: alcohol intake: former Alcohol type: beer Substance Use: substance use type: does not use Dietary Habits: caffeine: No Physical Exam - Physical Exam General Appearance: Present: alert, no apparent distress, obese Head Exam: Present: normal inspection Eye Exam: Other: bilateral - conjunctival injection, no pain or discharge Neck: Present: normal inspection, nontender, supple, full range of motion Respiratory: Present: no respiratory distress, normal breath sounds, no accessory muscle use, lungs clear Cardiovascular/Chest: Present: normal peripheral pulses, tachycardia, irregularly irregular Gastrointestinal/Abdominal: Present: nontender, soft, distended - obese Extremity Exam: Present: normal inspection, non-tender, no edema Neurological Exam: Present: alert, oriented, normal mood/affect, no motor/sensory deficits Skin Exam: Present: normal color, warm/dry Progress - Results and Orders Patient's Lab Results:: I have reviewed the patient's lab results. Results and Orders: Laboratory Tests 09/12/20 09/12/20 09/12/20 12:30 13:55 13:55 WBC 7.9 RBC 4.61 L Hgb 14.0 Hct 43.7 MCV 94.8 MCH 30.4 MCHC 32.0 RDW 14.5 H Plt Count 222 MPV 11.3 Immature Gran % (Auto) 0.10 Immature Gran # (Auto) 0.01 Neutrophils % 77.0 H Lymphocytes % 14.6 L Monocytes % 6.7 Eosinophils % 0.8 Basophils % 0.8 Nucleated RBC % 0.0 Neutrophils # 6.1 H Lymphocytes # 1.15 L Monocytes # 0.5 Eosinophils # 0.1 Absolute Basophils 0.1 PT 29.4 H INR (Anticoag Therapy) 2.98 H Sodium 140 Plasma Sodium 140 Potassium 4.4 Chloride 105 Carbon Dioxide 25.3 Anion Gap 14.1 H BUN 22 Creatinine 1.38 Est GFR (Non-Af Amer) 53 L BUN/Creatinine Ratio 15.9 Random Glucose 103 Calcium 9.0 Calcium Adj for Albumin 8.9 Total Bilirubin 0.6 AST 14 ALT 24 Alkaline Phosphatase 89 B-Natriuretic Peptide 1768 H - Vital Signs Patient's Vital Signs:: I have reviewed the patient's vital signs. Vital Signs: Vital Signs 09/12/20 14:10 Temperature 36.7 C Pulse Rate 143 H Respiratory Rate 21 H Blood Pressure 128/66 O2 Sat by Pulse Oximetry 95 - EKG EKG #1 EKG: atrial flutter - Rate 144, RBBB EKG read: Reviewed by me - X-Ray X-Ray #1 X-Ray: chest Interpretation: Reviewed by me X-ray Comments: No acute cardiopulmonary findings - Progress/Reassessment Chief Complaint: Tachycardia Progress:: Unchanged Plan - Plan Plan: Aside from feeling weak and tired, which has been gradually worsening for quite some time, the patient is asymptomatic in regards to his tachycardia. His EKG shows atrial flutter with a rate in the 140s. He was given a 20 mg Cardizem bolus and Cardizem drip was initiated. Heart rate is currently in the 130s. His CBC and CMP from earlier today were reviewed and were unremarkable. He is adequately anticoagulated on his Coumadin. A BMP was also ordered from the office. This was 1700 but the patient has a normal chest x-ray and is not having signs of overt CHF. A TSH and free T4 were done here and were within normal limits. Dr. Yeager was contacted and agreed to admit the patient to telemetry. 1645 - Negative COVID test. Monitor now shows Afib in 110's with Cardizem running at 20mg/hr. Departure Clinical Impression: Atrial flutter with rapid ventricular response - Departure Disposition: Still a patient Condition: Stable Referrals: Jassi Christensen MD [Primary Care Provider] -
[2020-09-12] MEDS: DILTIAZEM HCL 125 MG in NORMAL SALINE 100 ML IV PRN ×2 (14:49→22:23)
[2020-09-12 15:02] LABS: T4 Free * 1.06 ng/dL (0.76-1.46); TSH * 1.013 uIU/mL (0.358-3.74)
[2020-09-12] MEDS ORDERED: ACETAMINOPHEN 500 MG TABLET PO PRN (21:12)
[2020-09-12] MEDS ORDERED: METOPROLOL TARTRATE 25 MG TABLET PO SCH (21:15)
[2020-09-12] MEDS ORDERED: WARFARIN SODIUM 2 MG TABLET PO SCH (21:15)
--- NOTE | 2020-09-12 21:18 | HP ---
Chief Complaint - Chief Complaint Date of Service: 09/12/20 Time of Service: 21:16 Chief Complaint: tachycardia, weakness History of Present Illness: 75-year-old male with history of A. fib/a flutter with RVR, anxiety, chronic kidney disease, hypertension presented to the hospital yesterday with worsening fatigue and tachycardia. Patient saw his PCP and his heart rate was in the 140s that time so he was sent to the ER. In the ER patient had initial work-up which was fairly unremarkable aside from mildly elevated BNP at 1768. His kidney function was at baseline with a creatinine of 1.38 and a GFR of 53. Lites were normal. Thyroid labs were unremarkable. EKG showed A. fib with RVR but no other acute cardiopulmonary issues. Chest x-ray also was unremarkable. Patient is on Coumadin for his A. fib, therapeutic INR at 2.61. Patient was loaded on Cardizem and started on Cardizem drip for rate control as his heart rate continued to be in the 140s while in the ER. Patient was loaded on Cardizem and started on Cardizem drip and transferred to the floor for rate control. Patient only takes metoprolol for his rate control which I suspect probably is not at a stronger dose to keep him controlled the patient also states he did not take his medicine yesterday as he was coming in for an annual exam fasting and told not to take anything by mouth prior to his appointment so we get fasting labs which is why he did not take any of his medications either. Patient was evaluated, patient was felt much better. Heart rate was in the 80s. His diltiazem drip was running at 20. A dose of metoprolol ordered for tonight and will start to wean him off this medication. Hopefully get his rate under control with oral medicines this evening or tomorrow and likely discharge home tomorrow as he has no other concerns and feels well. Patient does endorse weakness which has been ongoing for the last month or so but he attributes it to not doing much and sit in his chair most the day. Physical therapy will be ordered to evaluate patient. Medical History (Last Reviewed 09/12/20 @ 17:43 by Nerissa Knapp RN) COVID-19 vaccine series completed (Acute) COVID-19 vaccine administered (Acute) Left foot pain (Acute) Onset Date: Unknown Hypertension (Chronic) Onset Date: Unknown Crohn disease (Chronic) Onset Date: Unknown Anxiety Onset Date: Unknown Bilateral knee pain Onset Date: Unknown Bunionectomy of Left 5th Toe Degenerative joint disease involving multiple joints Onset Date: Unknown Bilateral knee Gout Paroxysmal A-fib Onset Date: ~11/2017 Psoriasis Onset Date: Unknown Right foot pain Onset Date: ~2017 Arthritis Onset Date: Unknown History of stress test Onset Date: ~05/20/16 Surgical History: Surgical History (Last Reviewed 09/12/20 @ 17:44 by Nerissa Knapp RN) History of bunionectomy Onset Date: ~[address] Orellana Hx of shoulder surgery Onset Date: 10/21/19 Right reverse total shoulder arthroplasty - Hx of total knee arthroplasty Onset Date: ~2018 Left TKA 12-20-18 and Right TKA 12-22-18 Dr. Farias S/P bunionectomy Onset Date: ~04/30/18 Excision of right fifth metatarsal head Dr. Farias H/O colonoscopy Onset Date: ~03/27/15 Dr. Woodson polyp biopsy: hyperplastic polyp, rectum biopsy; patchy and focal mild active colitis with cryptitis; 2018- [place] H/O tympanomastoidectomy Onset Date: ~06/03/16 Right - Dr. Whelan Family History: Family History (Last Reviewed 09/12/20 @ 17:44 by Nerissa Knapp RN) Mother , late in her late 60's Lung cancer Father Social History: (Last Reviewed 09/12/20 @ 16:06 by Marietta Chowdhury NP) Social History: adopted: No retirement: No Marital status: lives independently: Yes household members: spouse current occupational status: retired current occupation: retired Highest level of school completed/degree received: high school graduate Tobacco: Smoking Status: Never smoker Alcohol: alcohol intake: former Alcohol type: beer Substance Use: substance use type: does not use Dietary Habits: caffeine: No Review Of Systems (GEN) - Review of Systems Generalized/Overall Review: Present: Weakness. Absent: Chills, Fever EENTM: Present: No Symptoms Reported - November Respiratory: Absent: Cough, Shortness of Breath Cardiac: Present: Palpitations. Absent: Chest Pain, Edema Abdominal: Present: No Symptoms Reported Genitourinary: Present: No Symptoms Reported Musculoskeletal: Present: No Symptoms Reported Neurological: Present: No Symptoms Reported Skin: Present: No Symptoms Reported Endocrine: Present: No Symptoms Reported Immunizations: IMMUNIZATION HX Immunizations Up to Date Yes Immunizations Comment full COVID vaccine History of Influenza Vaccine Yes Hx Pneumococcal Vaccination Yes Allergies/Adverse Reactions: Allergies Allergy/AdvReac Type Severity Reaction Status Date / Time Penicillins Allergy Intermediate SWOLLEN Verified 09/12/20 14:22 LIPS, HIVES caffeine AdvReac Mild Diarrhea Verified 09/12/20 14:22 Home Medications: HOME MEDICATIONS warfarin 2 mg tablet 2 mg PO MOWEFR 90 Days #180 tab 12/09/17 [Last Taken 10/14/19] omeprazole 40 mg capsule,delayed release 40 mg PO DAILY PRN #90 cap 10/07/18 [La st Taken Unknown] RX: Cyclobenzaprine HCl 5 mg PO Q8H PRN 10/21/19 [Last Taken Unknown] RX: Warfarin Sodium [Coumadin] 4 mg PO SUTUTHSA 10/21/19 [Last Taken Unknown] RX: Ferrous Sulfate [Iron] 325 mg PO DAILY 10/25/19 [Last Taken Unknown] acetaminophen 500 mg tablet 500 mg PO Q6H PRN 11/24/19 [Last Taken Unknown] escitalopram oxalate 10 mg tablet 10 mg PO DAILY #90 tab 12/20/19 [Last Taken Unknown] enalapril maleate 10 mg tablet 10 mg PO DAILY #90 tab 03/26/20 [Last Taken Unknown] furosemide 20 mg tablet 20 mg PO DAILY #90 tab 06/04/20 [Last Taken Unknown] metoprolol tartrate 25 mg tablet 25 mg PO DAILY #90 tab 06/05/20 [Last Taken Unknown] RX: Allopurinol [Zyloprim] 300 mg PO DAILY 09/12/20 [Last Taken Unknown] Exam - Exam Vital Signs: Vital Signs - Last Taken Temp 36.7 C 09/12/20 17:27 Pulse 103 H 09/12/20 20:00 Resp 16 09/12/20 17:53 BP 119/73 09/12/20 20:00 Pulse Ox 100 09/12/20 20:00 Constitutional: Present: Alert, Oriented x3, Cooperative, Elderly ENT Exam: Present: hearing grossly normal Eye Exam: bilateral eye: normal inspection, EOMI Neck: Present: non-tender, supple Respiratory: Present: lungs clear, normal breath sounds, no respiratory distress, no accessory muscle use Cardiovascular/Chest: Present: no murmur, irregularly irregular Peripheral Pulses: dorsalis-pedis (R): 2+, dorsalis-pedis (L): 2+ Abdomen: Present: Normal bowel sounds, soft, nontender, nondistended Extremity: Present: non-tender, no pedal edema Skin Exam: Present: normal color, warm/dry Appearance: Present: appropriate appearance, appropriate insight, neat Eye contact: Present: cooperative, good eye contact Thoughts: Present: normal thought pattern, normal mood /affect Diagnostic Studies: Laboratory Results TSH 1.013 uIU/mL (0.358-3.74) 09/12/20 13:55 Free T4 1.06 ng/dL (0.76-1.46) 09/12/20 13:55 SARS-CoV-2 (PCR) Not detected (NotDetected) 09/12/20 15:38 Assessment/Plan - Narrative Narrative: 75-year-old male placed in observation for A. fib with RVR. Currently on a diltiazem drip. Restart his metoprolol this evening and will start to wean him off the Cardizem drip as tolerated. He is only on 25 mg metoprolol once a day which his blood pressure will tolerate stronger dose and I think he probably needs for better rate control so we will likely titrate that up until we get better control or his blood pressure will tolerate but nothing is to be an issue. We will give an extra dose metoprolol tonight and restart his 25 mg in the morning and adjust this medication as needed. He deftly will need to be on a twice a day dosing and likely at least 50 mg twice a day but we will see how he does with a 25 twice a day for the time being. Otherwise patient feels much better now that his heart rate is back down to normal range this evening and he has no other concerns. His physical exam was fairly benign aside from the irregular heart rate. His lungs are clear and no swelling in his legs. He does have an elevated BNP but I think this is likely due to him being in A. fib with RVR for so long more so than actually going into congestive heart failure as he has no systemic signs of this at this time. Patient likely will need an echocardiogram outpatient if he has not had one recently which I will make sure to put in his discharge note for his PCP. His vital signs are stable though at this time, satting well, overall doing much better. We will order physical therapy for evaluation of his chronic weakness. I think this is likely attributed to his A. fib with RVR as well as he has not felt well for a while and therefore has had minimal activity. Patient likely be discharged home tomorrow as long as his heart rate responds appropriately. The patient does not achieve adequate rate control with just metoprolol at 50 mg twice daily and will likely add Cardizem orally as well but will wait to do this at this time as patient states he has been fairly well controlled with just metoprolol 25. Patient is on warfarin for his anticoagulation. He is therapeutic. No other DVT prophylaxis needed at this time. We will restart his other chronic medications. Nurse will call questions or concerns. 1.5 hours spent with patient total during his evaluation, history review, treatment plan development, and note dictation. 30 minutes of this was critical care time spent. - Assessment/Plan (1) Atrial fibrillation with RVR Problem: Acute (2) Chronic renal disease, stage 3, moderately decreased glomerular filtration rate (GFR) between 30-59 mL/min/1.73 square meter Problem: Chronic (3) Hypertension Problem: Chronic Qualifiers: (4) Elevated brain natriuretic peptide (BNP) level Problem: Acute
[2020-09-13] MEDS ORDERED: PANTOPRAZOLE SODIUM 40 MG TABLET.EC PO SCH (07:00)
[2020-09-13 07:23] LABS: Prothrombin Time (Patient) 25.9 Seconds (9.1-10.7)
[2020-09-13 07:28] LABS: INR 2.61 INR (0.92-1.08)
[2020-09-13] MEDS ORDERED: FUROSEMIDE 20 MG TABLET PO SCH (09:00)
[2020-09-13] MEDS ORDERED: ALLOPURINOL 300 MG TABLET PO SCH (09:00)
[2020-09-13] MEDS ORDERED: ESCITALOPRAM OXALATE 10 MG TAB PO SCH (09:00)
[2020-09-13] MEDS ORDERED: ENALAPRIL MALEATE 5 MG TABLET PO SCH (09:00)
[2020-09-13] MEDS ORDERED: METOPROLOL TARTRATE 25 MG TABLET PO SCH (09:00)
[2020-09-13] MEDS ORDERED: METOPROLOL TARTRATE 25 MG TABLET PO ONE (10:15)
[2020-09-13] MEDS ORDERED: WARFARIN SODIUM 2 MG TABLET PO SCH (17:00)
--- NOTE | 2020-09-13 17:36 | DS ---
(1) Atrial fibrillation with RVR Problem: Acute (2) Chronic renal disease, stage 3, moderately decreased glomerular filtration rate (GFR) between 30-59 mL/min/1.73 square meter Problem: Chronic (3) Hypertension Problem: Chronic Qualifiers: (4) Elevated brain natriuretic peptide (BNP) level Problem: Acute Date of Discharge:: 09/13/20 Hospital Course: 75-year-old male with history of A. fib and RVR was admitted to the hospital after patient was found to have a heart rate in the 140s while during his annual wellness exam with his PCP. Patient felt fine other than being tired and weak as well as feeling his heart race. Patient got to the ER his heart rate was in the 140s as stated above and he was found to be in A. fib with RVR. He had not taken his metoprolol which he normally takes to control his heart rate. Patient was started on diltiazem drip and was on this until late this morning when she was weaned off. He had restarted the patient's metoprolol last night and increased the dose from 25 mg a day to 50 mg twice daily. His heart rate after being off the diltiazem drip has been very good in the 60s and 70s. His blood pressures been stable. Patient has no other concerns and feels well aside from the weakness. Patient would benefit from outpatient physical therapy which we will get set up today. The only changes to his chronic medicines was to increase the metoprolol to 50 mg twice daily from 25 once a day. He is on warfarin for his A. fib and he is therapeutic, INR today was 2.61. The only abnormal lab that he had was an elevated BNP and the patient does not have a history of congestive heart failure and likely need an outpatient echocardiogram to evaluate this. Will refer him back to Dr. Christensen in 1 week with recommendations of ordering that echo at that time. Continue the rest of his medications. He can follow-up with my clinic if needed with any questions or concerns. 1 hour of time spent with the patient today, planning discharge, setting up outpatient physical therapy, reconciled medications, dictating this note and scheduling follow-up with his PCP. Procedures Performed: none Results and Findings: Lab Pending Results 09/12/20 13:55: TSH 1.013, Free T4 1.06 09/12/20 15:38: SARS-CoV-2 (PCR) Not detected 09/13/20 07:13: PT 25.9 H, INR (Anticoag Therapy) 2.61 H Discharge Location: Home Disposition: Home self-care Condition: Stable Discharge Activity: Activity as tolerated Discharge Diet: General/regular food Referrals: Jassi Christensen MD [Primary Care Provider] - Two Weeks Additional Patient Instructions (free text): Follow up office visit with on ThursdaySeptember 25 at 1:30pm. Prescriptions (Any new or edited meds): Metoprolol Tartrate [Lopressor] 50 mg PO Q12H #60 tab Transmission Status: Pending to [facility] Complete Home Medications List: Complete Home Medication List: warfarin 2 mg tablet 2 mg PO MOWEFR 90 Days #180 tab 12/09/17 omeprazole 40 mg capsule,delayed release 40 mg PO DAILY PRN #90 cap 10/07/18 Cyclobenzaprine HCl 5 mg PO Q8H PRN 10/21/19 Warfarin Sodium [Coumadin] 4 mg PO SUTUTHSA 10/21/19 Ferrous Sulfate [Iron] 325 mg PO DAILY 10/25/19 acetaminophen 500 mg tablet 500 mg PO Q6H PRN 11/24/19 escitalopram oxalate 10 mg tablet 10 mg PO DAILY #90 tab 12/20/19 enalapril maleate 10 mg tablet 10 mg PO DAILY #90 tab 03/26/20 furosemide 20 mg tablet 20 mg PO DAILY #90 tab 06/04/20 Allopurinol [Zyloprim] 300 mg PO DAILY 09/12/20 Metoprolol Tartrate [Lopressor] 50 mg PO Q12H #60 tab 09/13/20
[2020-09-13 18:38] VITALS: BP 130/74
[2020-09-13] MEDS ORDERED: METOPROLOL TARTRATE 50 MG TABLET PO SCH (21:00)
== END 2020-09-13 18:37 | disposition home or self-care (01) ==
LOC: ER 14:06 → MS 16:45 → INTOOBSV 16:45 → MS 17:29
PROVIDERS: ADMIT Family Medicine; ATTEND Family Medicine
DX: R00.0 Tachycardia, unspecified; N18.30 Chronic kidney disease, stage 3 unspecified; Z79.01 Long term (current) use of anticoagulants; I48.20 Chronic atrial fibrillation, unspecified; R53.1 Weakness; R79.89 Other specified abnormal findings of blood chemistry; I12.9 Hypertensive chronic kidney disease with stage 1 through stage 4 chronic kidney disease, or unspecified chronic kidney disease

== ENCOUNTER 2020-10-16 14:25 | Inpatient (IN) ==
[2020-10-16] MEDS ORDERED: METOPROLOL TARTRATE 25 MG TABLET PO ONE (15:29)
[2020-10-16 15:48] LABS: Hematocrit 42.1 % (42.0-52.0); Hemoglobin 13.3 gm/dL (13.5-18.0); Mean Cell Volume 95.7 fl (78-100); Mean Corpuscular Hemoglobin 30.2 pg (27-31); Mean Corpuscular Hgb Conc 31.6 g/dl (32-36); Mean Platelet Volume 11.7 fl (8-11.3); Neutrophil # 5.7 K/mm3 (1.3-6.0); Neutrophil % 73.6 % (42-75.0); Platelet Count 220 K/mm3 (150-450); Red Cell Distribution Width 14.4 % (11.5-14.0); White Blood Count 7.7 K/mm3 (4.0-10.5)
--- NOTE | 2020-10-16 16:30 | ERNOTE ---
Chest Pain/Cardiac HPI Date of Service: 10/16/20 Chief Complaint: Palpitations Time Seen by Provider: 10/16/20 15:30 Source: patient, RN notes reviewed, past records Exam Limitations: no limitations Immunizations: IMMUNIZATION HX Immunizations Up to Date Yes History of Influenza Vaccine Yes Hx Pneumococcal Vaccination Yes Allergies/Adverse Reactions: Allergies Penicillins Allergy (Intermediate, Verified 10/16/20 15:17) SWOLLEN LIPS, HIVES caffeine Adverse Reaction (Mild, Verified 10/16/20 15:17) Diarrhea Home Medications: HOME MEDICATIONS warfarin 2 mg tablet 2 mg PO MOWEFR 90 Days #180 tab 12/09/17 [Last Taken 10/14/19] omeprazole 40 mg capsule,delayed release 40 mg PO DAILY PRN #90 cap 10/07/18 [Last Taken Unknown] Cyclobenzaprine HCl 5 mg PO Q8H PRN 10/21/19 [Last Taken Unknown] Warfarin Sodium [Coumadin] 4 mg PO SUTUTHSA 10/21/19 [Last Taken Unknown] Ferrous Sulfate [Iron] 325 mg PO DAILY 10/25/19 [Last Taken Unknown] acetaminophen 500 mg tablet 500 mg PO Q6H PRN 11/24/19 [Last Taken Unknown] furosemide 20 mg tablet 20 mg PO DAILY #90 tab 06/04/20 [Last Taken Unknown] Allopurinol [Zyloprim] 300 mg PO DAILY 09/12/20 [Last Taken Unknown] enalapril maleate 10 mg tablet 10 mg PO DAILY #90 tab 10/02/20 [Last Taken Un known] escitalopram oxalate 10 mg tablet 10 mg PO DAILY #90 tab 10/03/20 [Last Taken Unknown] metoprolol tartrate 50 mg tablet 50 mg PO Q12H #180 tab 10/15/20 [Last Taken Unknown] Narrative: Javon is a 75-year-old male sent to the emergency department from his doctor's office for an elevated heart rate. He was being seen for a routine recheck appointment today when he was noted to have a heart rate in the 130s. The patient is prescribed metoprolol but he stopped taking it a couple of days ago. He was taking 75 mg twice a day and realized it was only supposed to be 50 mg bid. He was feeling weak for the past few days and thought it might be due to the medication. He denies any chest pain. He reports some shortness of breath and a cough, but states that it is his usual. A CMP, BNP and INR have already been done by his PCP. His BNP is elevated at 3600 and his renal function is mildly declined from his baseline renal failure. He is anticoagulated on Couma din and his INR is 4. Prior Treatment: Reports: recently seen, recently hospitalized Review of Systems - Review of Systems Constitutional: Present: fatigue. Absent: fever, chills EYE: Present: no symptoms reported ENT: Absent: ear pain, nose congestion, nasal drainage, sore throat Respiratory: Present: shortness of breath, cough. Absent: orthopnea Cardiology: Absent: palpitations, edema Gastrointestinal/Abdominal: Absent: nausea, abdominal pain Genitourinary: Absent: dysuria, decreased urinary output Musculoskeletal: Present: no symptoms reported Skin: Absent: rash, lesions Neurological: Absent: headache, dizziness/light-headedness Endocrine: Present: no symptoms reported Hematologic/Lymphatic: Present: easy bruising, easy bleeding Psych: Present: no symptoms reported Medical History (Last Reviewed 10/16/20 @ 20:09 by Marietta Chowdhury NP) COVID-19 vaccine series completed (Acute) COVID-19 vaccine administered (Acute) Left foot pain (Acute) Onset Date: Unknown Hypertension (Chronic) Onset Date: Unknown Crohn disease (Chronic) Onset Date: Unknown Anxiety Onset Date: Unknown Bilateral knee pain Onset Date: Unknown Bunionectomy of Left 5th Toe Degenerative joint disease involving multiple joints Onset Date: Unknown Bilateral knee Gout Paroxysmal A-fib Onset Date: ~11/2017 Psoriasis Onset Date: Unknown Right foot pain Onset Date: ~2017 Arthritis Onset Date: Unknown History of stress test Onset Date: ~05/20/16 Surgical History: Surgical History (Last Reviewed 10/16/20 @ 20:09 by Marietta Chowdhury NP) History of bunionectomy Onset Date: ~[address] Orellana Hx of shoulder surgery Onset Date: 10/21/19 Right reverse total shoulder arthroplasty - Hx of total knee arthroplasty Onset Date: ~2018 Left TKA 12-20-18 and Right TKA 12-22-18 Dr. Farias S/P bunionectomy Onset Date: ~04/30/18 Excision of right fifth metatarsal head Dr. Farias H/O colonoscopy Onset Date: ~03/27/15 Dr. Woodson polyp biopsy: hyperplastic polyp, rectum biopsy; patchy and focal mild active colitis with cryptitis; 2018- [facility]ron H/O tympanomastoidectomy Onset Date: ~06/03/16 Right - Dr. Whelan Family History: Family History (Last Reviewed 10/16/20 @ 20:09 by Marietta Chowdhury NP) Mother , late in her late 60's Lung cancer Father Social History: (Last Reviewed 10/16/20 @ 20:09 by Marietta Chowdhury NP) Social History: adopted: No jail: No Marital status: lives independently: Yes household members: spouse current occupational status: retired current occupation: retired Highest level of school completed/degree received: high school graduate Tobacco: Smoking Status: Never smoker Alcohol: alcohol intake: former Alcohol type: beer Substance Use: substance use type: does not use Dietary Habits: caffeine: No Physical Exam - Physical Exam General Appearance: Present: wd/wn, alert, no apparent distress Head Exam: Present: normal inspection Eye Exam: Normal inspection: bilateral Neck: Present: normal inspection, nontender, supple Respiratory: Present: no respiratory distress, no accessory muscle use, crackles - faint, bibasilar, other - dyspneic with minimal exertion Cardiovascular/Chest: Present: no murmur, normal peripheral pulses, tachycardia Extremity Exam: Present: normal inspection, non-tender, normal range of motion, no edema Neurological Exam: Present: alert, oriented, normal mood/affect, no motor/sensory deficits Skin Exam: Present: normal color, warm/dry Progress - Results and Orders Patient's Lab Results:: I have reviewed the patient's lab results. Results and Orders: Laboratory Tests 10/16/20 10/16/20 10/16/20 13:15 13:15 13:15 WBC 7.7 RBC 4.40 L Hgb 13.3 L Hct 42.1 MCV 95.7 MCH 30.2 MCHC 31.6 L RDW 14.4 H Plt Count 220 MPV 11.7 H Immature Gran % (Auto) 0.30 Immature Gran # (Auto) 0.02 Neutrophils % 73.6 Lymphocytes % 17.9 L Monocytes % 6.4 Eosinophils % 1.0 Basophils % 0.8 Nucleated RBC % 0.0 Neutrophils # 5.7 Lymphocytes # 1.38 L Monocytes # 0.5 Eosinophils # 0.1 Absolute Basophils 0.1 PT INR (Anticoag Therapy) Sodium 142 Plasma Sodium 142 Potassium 4.6 Chloride 107 H Carbon Dioxide 23.4 L Anion Gap 16.2 H BUN 31 H Creatinine 1.78 H D Est GFR (Non-Af Amer) 40 L D BUN/Creatinine Ratio 17.4 Random Glucose 114 H Calcium 8.9 Calcium Adj for Albumin 8.7 Total Bilirubin 0.6 AST 15 ALT 15 L Alkaline Phosphatase 88 Troponin I Less than 0.017 B-Natriuretic Peptide 3660 H Total Protein 7.1 Albumin 3.8 10/16/20 13:30 WBC RBC Hgb Hct MCV MCH MCHC RDW Plt Count MPV Immature Gran % (Auto) Immature Gran # (Auto) Neutrophils % Lymphocytes % Monocytes % Eosinophils % Basophils % Nucleated RBC % Neutrophils # Lymphocytes # Monocytes # Eosinophils # Absolute Basophils PT 39.4 H INR (Anticoag Therapy) 4.05 H* Sodium Plasma Sodium Potassium Chloride Carbon Dioxide Anion Gap BUN Creatinine Est GFR (Non-Af Amer) BUN/Creatinine Ratio Random Glucose Calcium Calcium Adj for Albumin Total Bilirubin AST ALT Alkaline Phosphatase Troponin I B-Natriuretic Peptide Total Protein Albumin - Vital Signs Patient's Vital Signs:: I have reviewed the patient's vital signs. Vital Signs: Vital Signs 10/16/20 15:05 10/16/20 15:17 10/16/20 15:41 Temperature 36.8 C Pulse Rate 127 H 128 H Respiratory Rate 20 Blood Pressure 135/86 135/86 O2 Sat by Pulse Oximetry 96 - EKG EKG #1 EKG: atrial flutter - with RVR, rate 128 EKG read: Reviewed by me EKG #2 EKG: NSR, RBBB EKG read: Reviewed by me - X-Ray X-Ray #1 X-Ray: chest Interpretation: Reviewed by me X-ray Comments: No acute cardiopulmonary findings - Progress/Reassessment Chief Complaint: Palpitations Progress:: Improved Plan - Plan Plan: The patient was initially given his prescribed dose of metoprolol 50 mg po. After approximately an hour, his heart rate remained in the 120's. He then received an additional 5 mg metoprolol IVP without any change. A 15 mg IV bolus of Cardizem was given and his heart rate slowed into the 60's and 70's, mostly in Afib but occasionally in sinus. Dr. Monroe was contacted and agreed to admit the patient to observation on tele. Departure Clinical Impression: Atrial flutter with rapid ventricular response - Departure Disposition: Still a patient Condition: Stable Referrals: Jassi Christensen MD [Primary Care Provider] -
[2020-10-16] MEDS ORDERED: METOPROLOL TARTRATE 1 MG/ML AMPUL IV ONE (16:59)
[2020-10-16] MEDS ORDERED: DILTIAZEM HCL 125 MG in NORMAL SALINE 100 ML IV PRN (17:31)
[2020-10-16] MEDS ORDERED: DILTIAZEM HCL 5 MG/ML VIAL IV ONE ×2 (17:31→19:33)
[2020-10-16] MEDS ORDERED: ACETAMINOPHEN 500 MG TABLET PO PRN (21:19)
[2020-10-16] MEDS ORDERED: WARFARIN SODIUM 2 MG TABLET PO SCH (21:30)
[2020-10-16] MEDS ORDERED: METOPROLOL TARTRATE 50 MG TABLET PO SCH (21:30)
[2020-10-16] MEDS ORDERED: CYCLOBENZAPRINE HCL 10 MG TABLET PO PRN (21:33)
--- NOTE | 2020-10-17 08:08 | HP ---
Chief Complaint - Chief Complaint Date of Service: 10/17/20 Time of Service: 08:08 Chief Complaint: palpitations History of Present Illness: Patient with PMHx of afib on anticoagulation, CKD, HTN, heart failure went to his PCP office for a visit, and his HR was in the 130's, so he went to the ED. EKG showed afib with RVR. He'd not been taking his prescribed 50 mg bid metoprolol correctly - he was taking 75 mg bid, and was feeling more fatigued. He stopped the metoprolol altogether the day before admission. In the ED, his HR was in the 120's. He was initially given 5 mg IV lopressor, then 5 mg IV cardizem, with no improvement in his HR. He was then given 15 mg IV cardizem and his HR decreased to the 60's. He was admitted for HR control. He had a similar admission last month, and his metoprolol dose was increased from 25 mg bid to 50 mg bid. He was seen and examined the morning after his ED visit. His HR fluctuated overnight, going up into the 120's at rest, but recovering. At the time of my exam, his HR was 130. His last dose of metoprolol had been almost 12 hours prior. He denies fever, cough, increased SOB, abd pain, urinary complaints, or edema. Medical History (Last Reviewed 10/16/20 @ 21:59 by Graciela Muller RN) COVID-19 vaccine series completed (Acute) COVID-19 vaccine administered (Acute) Left foot pain (Acute) Onset Date: Unknown Hypertension (Chronic) Onset Date: Unknown Crohn disease (Chronic) Onset Date: Unknown Anxiety Onset Date: Unknown Bilateral knee pain Onset Date: Unknown Bunionectomy of Left 5th Toe Degenerative joint disease involving multiple joints Onset Date: Unknown Bilateral knee Gout Paroxysmal A-fib Onset Date: ~11/2017 Psoriasis Onset Date: Unknown Right foot pain Onset Date: ~2017 Arthritis Onset Date: Unknown History of stress test Onset Date: ~05/20/16 Surgical History: Surgical History (Last Reviewed 10/16/20 @ 21:59 by Graciela Muller RN) History of bunionectomy Onset Date: ~[address] Orellana Hx of shoulder surgery Onset Date: 10/21/19 Right reverse total shoulder arthroplasty - Hx of total knee arthroplasty Onset Date: ~2018 Left TKA 12-20-18 and Right TKA 12-22-18 Dr. Farias S/P bunionectomy Onset Date: ~04/30/18 Excision of right fifth metatarsal head Dr. Farias H/O colonoscopy Onset Date: ~03/27/15 Dr. Woodson polyp biopsy: hyperplastic polyp, rectum biopsy; patchy and focal mild active colitis with cryptitis; 2017- [facility] H/O tympanomastoidectomy Onset Date: ~06/03/16 Right - Dr. Whelan Family History: Family History (Last Updated 10/16/20 @ 22:00 by Graciela Muller RN) Mother , late in her late 60's Lung cancer Father Other Patient's brother is still living Social History: (Last Reviewed 10/16/20 @ 20:09 by Marietta Chowdhury NP) Social History: adopted: No prison: No Marital status: lives independently: Yes household members: spouse current occupational status: retired current occupation: retired Highest level of school completed/degree received: high school graduate Tobacco: Smoking Status: Never smoker Alcohol: alcohol intake: former Alcohol type: beer Substance Use: substance use type: does not use Dietary Habits: caffeine: No Review Of Systems (GEN) - Review of Systems Generalized/Overall Review: Absent: Fever Respiratory: Present: Shortness of Breath. Absent: Cough Cardiac: Absent: Chest Pain, Edema Abdominal: Absent: Vomiting, Diarrhea Genitourinary: Present: Frequency - baseline. Absent: Dysuria Skin: Present: No Symptoms Reported Immunizations: IMMUNIZATION HX Immunizations Up to Date Yes History of Influenza Vaccine Yes Hx Pneumococcal Vaccination Yes Allergies/Adverse Reactions: Allergies Allergy/AdvReac Type Severity Reaction Status Date / Time Penicillins Allergy Intermediate SWOLLEN Verified 10/16/20 15:17 LIPS, HIVES caffeine AdvReac Mild Diarrhea Verified 10/16/20 15:17 Home Medications: HOME MEDICATIONS warfarin 2 mg tablet 2 mg PO MOWEFR 90 Days #180 tab 12/09/17 [Last Taken 10/15/20 12:00] omeprazole 40 mg capsule,delayed release 40 mg PO DAILY PRN #90 cap 10/07/18 [Last Taken Unknown] Cyclobenzaprine HCl 5 mg PO Q8H PRN 10/21/19 [Last Taken Unknown] Warfarin Sodium [Coumadin] 4 mg PO SUTUTHSA 10/21/19 [Last Taken 10/14/20 12:00] Ferrous Sulfate [Iron] 325 mg PO DAILY 10/25/19 [Last Taken 10/15/20 12:00] acetaminophen 500 mg tablet 500 mg PO Q6H PRN 11/24/19 [Last Taken 10/16/20 08:00] furosemide 20 mg tablet 20 mg PO DAILY #90 tab 06/04/20 [Last Taken 10/15/20 12:00] Allopurinol [Zyloprim] 300 mg PO DAILY 09/12/20 [Last Taken 10/15/20 12:00] enalapril maleate 10 mg tablet 10 mg PO DAILY #90 tab 10/02/20 [Last Taken 10/15/20 12:00] escitalopram oxalate 10 mg tablet 10 mg PO DAILY #90 tab 10/03/20 [Last Taken 10/15/20 12:00] metoprolol tartrate 50 mg tablet 50 mg PO Q12H #180 tab 10/15/20 [Last Taken 10/15/20 08:00] Exam - Exam Vital Signs: Vital Signs - Last Taken Temp 36.5 C 10/17/20 06:28 Pulse 118 H 10/17/20 06:28 Resp 16 10/17/20 06:28 BP 105/70 10/17/20 06:28 Pulse Ox 97 10/17/20 06:28 Constitutional: Present: Alert, Cooperative, Obese Respiratory: Present: normal breath sounds, no respiratory distress Cardiovascular/Chest: Present: tachycardia - HR 130 Abdomen: Present: soft, nontender, obese Extremity: Absent: lower extremity edema Eye contact: Present: cooperative, good eye contact Diagnostic Studies: Abnormal Lab Results 10/16/20 Range/Units 13:15 RBC 4.40 L (4.7-6.0) M/mm3 Hgb 13.3 L (13.5-18.0) gm/dL MCHC 31.6 L (32-36) g/dl RDW 14.4 H (11.5-14.0) % MPV 11.7 H (8-11.3) fl Lymphocytes % 17.9 L (20-51) % Lymphocytes # 1.38 L (1.5-3.5) k/mm3 Laboratory Results WBC 7.7 K/mm3 (4.0-10.5) 10/16/20 13:15 RBC 4.40 M/mm3 (4.7-6.0) L 10/16/20 13:15 Hgb 13.3 gm/dL (13.5-18.0) L 10/16/20 13:15 Hct 42.1 % (42.0-52.0) 10/16/20 13:15 MCV 95.7 fl (78-100) 10/16/20 13:15 MCH 30.2 pg (27-31) 10/16/20 13:15 MCHC 31.6 g/dl (32-36) L 10/16/20 13:15 RDW 14.4 % (11.5-14.0) H 10/16/20 13:15 Plt Count 220 K/mm3 (150-450) 10/16/20 13:15 MPV 11.7 fl (8-11.3) H 10/16/20 13:15 Immature Gran % (Auto) 0.30 % (0.001-0.429) 10/16/20 13:15 Immature Gran # (Auto) 0.02 K/mm3 (0.000-0.0310) 10/16/20 13:15 Neutrophils % 73.6 % (42-75.0) 10/16/20 13:15 Lymphocytes % 17.9 % (20-51) L 10/16/20 13:15 Monocytes % 6.4 % (0.0-9) 10/16/20 13:15 Eosinophils % 1.0 % (0.0-3.0) 10/16/20 13:15 Basophils % 0.8 % (0.0-1.0) 10/16/20 13:15 Nucleated RBC % 0.0 k/mm3 (0-1) 10/16/20 13:15 Neutrophils # 5.7 K/mm3 (1.3-6.0) 10/16/20 13:15 Lymphocytes # 1.38 k/mm3 (1.5-3.5) L 10/16/20 13:15 Monocytes # 0.5 k/mm3 (0.0-1.0) 10/16/20 13:15 Eosinophils # 0.1 k/mm3 (0.0-0.7) 10/16/20 13:15 Absolute Basophils 0.1 k/mm3 (0.0-0.1) 10/16/20 13:15 Troponin I Less than 0.017 ng/mL (0.00-0.10) 10/16/20 13:15 SARS-CoV-2 (PCR) Not detected (NotDetected) 10/16/20 18:39 Assessment/Plan - Narrative Narrative: His heart rate had been controlled overnight until shortly prior to my admission assessment, when it was 130. Will give 5 mg cardizem IV, and start 30 mg po cardizem tid. Discussed case with his PCP. He should remain on a beta dheeraj due to his CHF, but the metoprolol alone is not managing his heart rate. Will add 25 mg metoprolol succinate. If HR is controlled, he may DC tomorrow. - Assessment/Plan (1) Atrial flutter with rapid ventricular response Problem: Acute (2) H/O right heart catheterization Problem: Chronic (3) SOURAV (generalized anxiety disorder) Problem: Resolved (4) Shortness of breath on exertion Problem: Chronic (5) Chronic renal disease, stage 3, moderately decreased glomerular filtration rate (GFR) between 30-59 mL/min/1.73 square meter Assessment: Appears to be close to his baseline. GFR was 53 earlier this year. Problem: Chronic (6) Heart failure Assessment: Unable to find recent echo. BNP was slightly elevated yesterday, which may have been from heart failure, or may have been from tachycardia. No signs of fluid overload on my exam. Problem: Chronic (7) Hypertension Problem: Chronic Qualifiers: (8) Hiatal hernia with GERD Problem: Chronic (9) Status post total left knee replacement Problem: Chronic
[2020-10-17] MEDS ORDERED: DILTIAZEM HCL 5 MG/ML VIAL IV ONE (08:23)
[2020-10-17] MEDS: DILTIAZEM HCL 30 MG TABLET PO SCH ×2 (08:53→17:30)
[2020-10-17] MEDS: FUROSEMIDE 20 MG TABLET PO SCH (09:00)
[2020-10-17] MEDS: ESCITALOPRAM OXALATE 10 MG TAB PO SCH (09:01)
[2020-10-17] MEDS ORDERED: METOPROLOL SUCCINATE 25 MG TABLET.SA PO SCH (13:00)
[2020-10-17] MEDS ORDERED: WARFARIN SODIUM 2 MG TABLET PO SCH (17:00)
[2020-10-18] MEDS: DILTIAZEM HCL 30 MG TABLET PO SCH ×3 (00:29→17:51)
[2020-10-18] MEDS: ESCITALOPRAM OXALATE 10 MG TAB PO SCH (08:43)
[2020-10-18] MEDS: FUROSEMIDE 20 MG TABLET PO SCH (08:44)
[2020-10-18] MEDS ORDERED: METOPROLOL SUCCINATE 50 MG TABLET.SA PO SCH (09:00)
[2020-10-18 09:05] LABS: INR 2.62 INR (0.92-1.08)
--- NOTE | 2020-10-18 14:20 | PN ---
Subjective - Date and Time Seen Date: 10/18/20 Time: 07:50 Subjective Narrative: His HR is continuing to increase to the 130's at rest. He is having fatigue. Is eating and drinking well. Objective - Review of Systems Generalized/Overall Review: Denies: Fever Respiratory: Denies: Shortness of Breath Cardiac: Denies: Chest Pain Abdominal: Denies: Vomiting Genitourinary Symptoms: Reports: No Symptoms Reported - Vitals Vitals: Last Vital Signs Temp 36.3 C 10/18/20 10:00 Pulse 102 H 10/18/20 10:00 Resp 18 10/18/20 10:00 BP 145/95 H 10/18/20 10:00 Pulse Ox 98 10/18/20 10:00 - Abnormal Lab Findings Abnormal Lab Findings: Abnormal Lab Results 10/18/20 Range/Units 08:40 PT 26.0 H (9.1-10.7) Seconds INR (Anticoag Therapy) 2.62 H (0.92-1.08) INR - Exam Constitutional: Present: Alert, Cooperative, Well developed, No distress, Obese Respiratory: Present: lungs clear, normal breath sounds Cardiovascular/Chest: Present: tachycardia - 120's Abdomen: Present: nontender, obese Extremity: Absent: lower extremity edema Eye contact: Present: cooperative, good eye contact Assessment/Plan Plan Narrative: His heart rate continues to elevated to the 120's and 130's at rest. His metoprolol succinate dose was increased to 50 mg daily, but this afternoon, his HR is again in the 130's while he's sleeping. Will increase metoprolol succinate dose to 100 mg, and continue 30 mg cardizem tid. If this increased dose of metoprolol does not manage his HR, will switch to carvedilol tomorrow. - Problems/Diagnosis (1) Atrial flutter with rapid ventricular response Problem: Acute (2) H/O right heart catheterization Problem: Chronic (3) SOURAV (generalized anxiety disorder) Problem: Resolved (4) Shortness of breath on exertion Problem: Chronic (5) Chronic renal disease, stage 3, moderately decreased glomerular filtration rate (GFR) between 30-59 mL/min/1.73 square meter Problem: Chronic (6) Heart failure Problem: Chronic (7) Hypertension Problem: Chronic Qualifiers: (8) Hiatal hernia with GERD Problem: Chronic (9) Status post total left knee replacement Problem: Chronic
[2020-10-18] MEDS ORDERED: METOPROLOL TARTRATE 50 MG TABLET PO SCH (14:30)
[2020-10-18] MEDS ORDERED: METOPROLOL TARTRATE 50 MG TABLET PO ONE (15:15)
[2020-10-18] MEDS ORDERED: WARFARIN SODIUM 4 MG TABLET PO SCH (17:00)
[2020-10-18] MEDS ORDERED: WARFARIN SODIUM 2 MG TABLET PO SCH (21:57)
[2020-10-19] MEDS: DILTIAZEM HCL 30 MG TABLET PO SCH ×3 (00:13→17:27)
[2020-10-19 07:00] LABS: Prothrombin Time (Patient) 20.1 Seconds (9.1-10.7)
--- NOTE | 2020-10-19 07:45 | PN ---
Subjective - Date and Time Seen Date: 10/19/20 Time: 07:44 Subjective Narrative: HR continues to increase to the 130's, though not as often as the previous night. He denies new concerns. Objective - Review of Systems Generalized/Overall Review: Denies: Weakness Respiratory: Denies: Cough, Shortness of Breath Cardiac: Denies: Chest Pain Abdominal: Denies: Vomiting Genitourinary Symptoms: Reports: No Symptoms Reported Musculoskeletal Complaints: Reports: No Symptoms Reported - Vitals Vitals: Last Vital Signs Temp 36.5 C 10/19/20 03:49 Pulse 93 10/19/20 03:49 Resp 18 10/19/20 03:49 BP 114/65 10/19/20 03:49 Pulse Ox 96 10/19/20 03:49 - Abnormal Lab Findings Abnormal Lab Findings: Abnormal Lab Results 10/18/20 10/19/20 Range/Units 08:40 06:18 PT 26.0 H 20.1 H (9.1-10.7) Seconds INR (Anticoag Therapy) 2.62 H 2.00 H (0.92-1.08) INR - Exam Constitutional: Present: Alert, Cooperative, No distress, Obese Respiratory: Present: lungs clear, normal breath sounds Cardiovascular/Chest: Present: tachycardia - 126 Abdomen: Present: obese Extremity: Absent: lower extremity edema Eye contact: Present: cooperative, good eye contact Assessment/Plan Plan Narrative: Patient continues to have HR up to the 130's at rest, asymptomatic. 30 mg cardizem tid added during his stay, and his home metoprolol dose titrated up to 100 mg, but his HR is still uncontrolled. This may be why he is feeling tired. Metoprolol was changed to 6.25 mg carvedilol this morning, but HR did not improve, so dose increased to 12.5 mg bid this afternoon. Will need at least an additional night hospitalization for rate control. Continue warfarin, and INR was 2.0 this morning. - Problems/Diagnosis (1) Atrial flutter with rapid ventricular response Problem: Acute (2) H/O right heart catheterization Problem: Chronic (3) SOURAV (generalized anxiety disorder) Problem: Resolved (4) Shortness of breath on exertion Problem: Chronic (5) Chronic renal disease, stage 3, moderately decreased glomerular filtration rate (GFR) between 30-59 mL/min/1.73 square meter Problem: Chronic (6) Heart failure Problem: Chronic (7) Hypertension Problem: Chronic Qualifiers: (8) Hiatal hernia with GERD Problem: Chronic (9) Status post total left knee replacement Problem: Chronic
[2020-10-19] MEDS ORDERED: METOPROLOL SUCCINATE 100 MG TABLET.SA PO SCH (09:00)
[2020-10-19] MEDS ORDERED: CARVEDILOL 6.25 MG TABLET PO SCH (09:00)
[2020-10-19] MEDS: FUROSEMIDE 20 MG TABLET PO SCH (09:09)
[2020-10-19] MEDS: ESCITALOPRAM OXALATE 10 MG TAB PO SCH (09:09)
[2020-10-19] MEDS ORDERED: CARVEDILOL 6.25 MG TABLET PO ONE (11:58)
[2020-10-19] MEDS: WARFARIN SODIUM 2 MG TABLET PO SCH (17:27)
[2020-10-19] MEDS: CARVEDILOL 12.5 MG TABLET PO SCH (20:26)
[2020-10-19] MEDS ORDERED: WARFARIN SODIUM 2 MG TABLET PO SCH (21:19)
[2020-10-20] MEDS: DILTIAZEM HCL 30 MG TABLET PO SCH ×4 (00:06→20:11)
[2020-10-20 07:08] LABS: Prothrombin Time (Patient) 16.6 Seconds (9.1-10.7)
[2020-10-20 07:09] LABS: Albumin * 3.6 gm/dl (3.4-5.0); Anion Gap 12.5 mmol/L (6.8-13.8); BUN/Creatinine Ratio 18.9 (9.0-21.6); Bilirubin, Total 0.7 mg/dL (0.0-1.1); Carbon Dioxide 27.7 mmol/L (24-32.6); INR 1.63 INR (0.92-1.08); Potassium 4.2 mmol/L (3.4-4.6); Total Protein 6.8 gm/dL (6.2-8.2)
[2020-10-20] MEDS: FUROSEMIDE 20 MG TABLET PO SCH (08:21)
[2020-10-20] MEDS: CARVEDILOL 12.5 MG TABLET PO SCH (08:23)
[2020-10-20] MEDS: ESCITALOPRAM OXALATE 10 MG TAB PO SCH (08:23)
[2020-10-20] MEDS ORDERED: DILTIAZEM HCL 30 MG TABLET PO SCH (10:31)
--- NOTE | 2020-10-20 10:34 | PN ---
Subjective - Date and Time Seen Date: 10/20/20 Time: 10:34 Subjective Narrative: His telemetry is showing HR in the 120-130. He is asymptomatic with no chest pain, lightheadedness or shortness of breath. Objective - Review of Systems Generalized/Overall Review: Reports: Weakness. Denies: Chills, Fever EENTM: Denies: Blurred Vision, Mouth Swelling Respiratory: Denies: Cough, Orthopnea Cardiac: Reports: Edema. Denies: Chest Pain, Palpitations Abdominal: Denies: Nausea, Vomiting, Abdominal Pain Genitourinary Symptoms: Denies: Urgency, Frequency Musculoskeletal Complaints: Denies: Joint Pain Neurological: Denies: Headache Skin: Denies: Lesions, Rash Misc: All systems neg except as marked - Vitals Vitals: Last Vital Signs Temp 36.8 C 10/20/20 07:10 Pulse 120 H 10/20/20 08:23 Resp 20 10/20/20 07:10 BP 120/72 10/20/20 08:23 Pulse Ox 96 10/20/20 07:10 - Abnormal Lab Findings Abnormal Lab Findings: Abnormal Lab Results 10/20/20 10/20/20 Range/Units 06:25 06:25 PT 16.6 H (9.1-10.7) Seconds INR (Anticoag Therapy) 1.63 H (0.92-1.08) INR BUN 30 H (6-23) mg/dL Creatinine 1.59 H (0.4-1.4) mg/dL Est GFR (Non-Af Amer) 45 L (60-130) mL/min ALT 15 L (19-67) U/L - Exam Constitutional: Present: Alert, Oriented x3, Cooperative, Obese ENT Exam: Present: hearing grossly normal Neck: Present: supple. Absent: lymphadenopathy (R), lymphadenopathy (L) Respiratory: Present: normal breath sounds, No rales, No wheezing Cardiovascular/Chest: Present: no JVD, no murmur, irregularly irregular Abdomen: Present: Normal bowel sounds, soft, nontender, obese Extremity: Present: no calf tenderness, pedal edema Assessment/Plan Plan Narrative: Javon was admitted for atrial fibrillation with rapid ventricular response. He is still running in the 120s to 130s. He is on anticoagulation. We will discontinue his Coreg and restart him on his metoprolol tartrate at 50 mg p.o. twice daily only as he just got his morning dose of Coreg, increase his Cardizem to 30 mg 2 every 6 hours from every 8 hours. Consider adding digoxin. - Problems/Diagnosis (1) Atrial fibrillation with RVR Problem: Acute (2) Hypertension Problem: Chronic Qualifiers: Hypertension type: essential hypertension Qualified Code(s): I10 - Essential (primary) hypertension (3) Chronic renal disease, stage 3, moderately decreased glomerular filtration rate (GFR) between 30-59 mL/min/1.73 square meter Problem: Chronic Qualifiers: Chronic kidney disease stage 3 subtype: stage 3a (GFR 45-59) Qualified Code(s): N18.31 - Chronic kidney disease, stage 3a (4) SOURAV (generalized anxiety disorder) Problem: Resolved
[2020-10-20] MEDS: METOPROLOL TARTRATE 50 MG TABLET PO SCH ×2 (12:22→20:11)
[2020-10-20] MEDS ORDERED: WARFARIN SODIUM 4 MG TABLET PO SCH (17:00)
[2020-10-21] MEDS: DILTIAZEM HCL 30 MG TABLET PO SCH ×3 (04:13→16:00)
[2020-10-21 06:30] LABS: Prothrombin Time (Patient) 17.6 Seconds (9.1-10.7)
[2020-10-21 06:33] LABS: INR 1.74 INR (0.92-1.08)
[2020-10-21] MEDS ORDERED: DIGOXIN 0.25 MG/ML AMPUL IV ONE (08:30)
--- NOTE | 2020-10-21 08:34 | PN ---
Subjective - Date and Time Seen Date: 10/21/20 Time: 08:32 Subjective Narrative: had low blood pressure this morning while sleeping. repeat BP was 126/76.HR in the 1 teens to 120, occasionally in the normal range but rare. Objective - Review of Systems Generalized/Overall Review: Reports: Weakness. Denies: Chills, Fever EENTM: Denies: Blurred Vision Respiratory: Denies: Cough, Shortness of Breath, Orthopnea Cardiac: Denies: Chest Pain, Edema, Palpitations Abdominal: Denies: Nausea, Vomiting, Abdominal Pain Genitourinary Symptoms: Denies: Urgency, Frequency Musculoskeletal Complaints: Denies: Joint Pain Neurological: Denies: Headache Skin: Denies: Lesions, Rash Misc: All systems neg except as marked - Vitals Vitals: Last Vital Signs Temp 36.9 C 10/21/20 06:59 Pulse 78 10/21/20 06:59 Resp 20 10/21/20 06:59 BP 82/60 L 10/21/20 07:08 Pulse Ox 96 10/21/20 06:59 - Abnormal Lab Findings Abnormal Lab Findings: Abnormal Lab Results 10/21/20 Range/Units 06:00 PT 17.6 H (9.1-10.7) Seconds INR (Anticoag Therapy) 1.74 H (0.92-1.08) INR - Exam Constitutional: Present: Alert, Oriented x3, Cooperative ENT Exam: Present: hearing grossly normal Neck: Present: supple. Absent: lymphadenopathy (R), lymphadenopathy (L) Respiratory: Present: decreased breath sounds, No rales, No wheezing Cardiovascular/Chest: Present: no JVD, no murmur, irregularly irregular Abdomen: Present: Normal bowel sounds, soft, nontender, nondistended Extremity: Present: no calf tenderness, pedal edema Assessment/Plan Plan Narrative: Javon is still running in the 1 teens to 120s. He is a symptomatic. He is on metoprolol 50 twice daily and Cardizem 30 mg every 6 hours. We will try to start him on a loading dose of IV digoxin. Addendum: As patient was about to get his IV digoxin his telemetry showed his heart rate went down to the 70s but still in atrial fibrillation. Digoxin was canceled. I will likely change him to 24-hour Cardizem and continue with his metoprolol. Possible discharge in the morning. - Problems/Diagnosis (1) Atrial fibrillation with RVR Problem: Acute (2) Hypertension Problem: Chronic Qualifiers: Hypertension type: essential hypertension Qualified Code(s): I10 - Essential (primary) hypertension (3) Chronic renal disease, stage 3, moderately decreased glomerular filtration rate (GFR) between 30-59 mL/min/1.73 square meter Problem: Chronic Qualifiers: Chronic kidney disease stage 3 subtype: stage 3a (GFR 45-59) Qualified Code(s): N18.31 - Chronic kidney disease, stage 3a (4) SOURAV (generalized anxiety disorder) Problem: Resolved
[2020-10-21] MEDS: FUROSEMIDE 20 MG TABLET PO SCH (08:40)
[2020-10-21] MEDS: ESCITALOPRAM OXALATE 10 MG TAB PO SCH (08:40)
[2020-10-21] MEDS: METOPROLOL TARTRATE 50 MG TABLET PO SCH ×2 (08:40→20:28)
[2020-10-21] MEDS ORDERED: DIGOXIN 0.25 MG/ML AMPUL ONE (10:15)
[2020-10-21] MEDS ORDERED: DILTIAZEM HCL 120 MG CAP.SR.24H PO ONE (14:46)
[2020-10-21] MEDS: WARFARIN SODIUM 2 MG TABLET PO SCH (17:40)
[2020-10-22 06:25] LABS: Hematocrit 38.7 % (42.0-52.0); Hemoglobin 12.2 gm/dL (13.5-18.0); Mean Cell Volume 96.8 fl (78-100); Mean Corpuscular Hemoglobin 30.5 pg (27-31); Mean Corpuscular Hgb Conc 31.5 g/dl (32-36); Mean Platelet Volume 11.4 fl (8-11.3); Neutrophil # 4.3 K/mm3 (1.3-6.0); Neutrophil % 60.7 % (42-75.0); Platelet Count 204 K/mm3 (150-450); Red Cell Distribution Width 14.2 % (11.5-14.0); White Blood Count 7.1 K/mm3 (4.0-10.5)
[2020-10-22 06:30] LABS: INR 1.79 INR (0.92-1.08); Prothrombin Time (Patient) 18.1 Seconds (9.1-10.7)
[2020-10-22 06:44] LABS: Anion Gap 11.8 mmol/L (6.8-13.8); BUN/Creatinine Ratio 19.1 (9.0-21.6); Calcium * 8.3 mg/dL (7.9-10.9); Carbon Dioxide 29.1 mmol/L (24-32.6); Estimated Creat Clear 41.3; Potassium 3.9 mmol/L (3.4-4.6); TSH * 0.772 uIU/mL (0.358-3.74)
--- NOTE | 2020-10-22 08:24 | DS ---
(1) Atrial flutter with rapid ventricular response Problem: Acute (2) H/O right heart catheterization Problem: Chronic (3) SOURAV (generalized anxiety disorder) Problem: Resolved (4) Shortness of breath on exertion Problem: Chronic (5) Chronic renal disease, stage 3, moderately decreased glomerular filtration rate (GFR) between 30-59 mL/min/1.73 square meter Problem: Chronic Qualifiers: Chronic kidney disease stage 3 subtype: stage 3a (GFR 45-59) Qualified Code(s): N18.31 - Chronic kidney disease, stage 3a (6) Heart failure Problem: Chronic (7) Hypertension Problem: Chronic Qualifiers: Hypertension type: essential hypertension Qualified Code(s): I10 - Essential (primary) hypertension (8) Hiatal hernia with GERD Problem: Chronic (9) Status post total left knee replacement Problem: Chronic Date of Discharge:: 10/22/20 Hospital Course: Patient with PMHx of afib on anticoagulation, CKD, HTN, heart failure went to his PCP office for a visit, and his HR was in the 130's, so he went to the ED. EKG showed afib with RVR. He'd not been taking his prescribed 50 mg bid metoprolol correctly - he was taking 75 mg bid, and was feeling more fatigued. He stopped the metoprolol altogether the day before admission. He was admitted for HR control, which took numerous adjustments and several days. Restarted his home dose metoprolol, but HR still increased. The dose was increased, and cardizem was added. HR still uncontrolled, so carvedilol was started, but HR still uncontrolled. 50 mg metoprolol resumed, plus 120 mg long acting cardizem. This combination kept his HR in the 90's and 100's. His HR will increase to the 120's with activity, but no longer increasing at rest. He felt comfortable going home on the day of DC, and will refer to cardiology. His INR was a bit high, so his home coumadin was held for 2 days. INR was 1.79 on the day of DC, and discussed plan with pharmacist. Will recheck INR in one week. Procedures Performed: none Results and Findings: Lab Pending Results 10/16/20 13:15: WBC 7.7, RBC 4.40 L, Hgb 13.3 L, Hct 42.1, MCV 95.7, MCH 30.2, MCHC 31.6 L, RDW 14.4 H, Plt Count 220, MPV 11.7 H, Immature Gran % (Auto) 0.30, Immature Gran # (Auto) 0.02, Neutrophils % 73.6, Lymphocytes % 17.9 L, Monocytes % 6.4, Eosinophils % 1.0, Basophils % 0.8, Nucleated RBC % 0.0, Neutrophils # 5.7, Lymphocytes # 1.38 L, Monocytes # 0.5, Eosinophils # 0.1, Absolute Basophils 0.1 10/16/20 13:15: Troponin I Less than 0.017 10/16/20 18:39: SARS-CoV-2 (PCR) Not detected 10/18/20 08:40: PT 26.0 H, INR (Anticoag Therapy) 2.62 H 10/19/20 06:18: PT 20.1 H, INR (Anticoag Therapy) 2.00 H 10/20/20 06:25: PT 16.6 H, INR (Anticoag Therapy) 1.63 H 10/20/20 06:25: Sodium 141, Plasma Sodium 141, Potassium 4.2, Chloride 105, Carbon Dioxide 27.7, Anion Gap 12.5, BUN 30 H, Creatinine 1.59 H, Est GFR (Non- Af Amer) 45 L, BUN/Creatinine Ratio 18.9, Random Glucose 104, Calcium 9.0, Calcium Adj for Albumin 9.0, Total Bilirubin 0.7, AST 14, ALT 15 L, Alkaline Phosphatase 86, Total Protein 6.8, Albumin 3.6 10/21/20 06:00: PT 17.6 H, INR (Anticoag Therapy) 1.74 H 10/22/20 06:10: PT 18.1 H, INR (Anticoag Therapy) 1.79 H 10/22/20 06:12: WBC 7.1, RBC 4.00 L, Hgb 12.2 L, Hct 38.7 L, MCV 96.8, MCH 30.5, MCHC 31.5 L, RDW 14.2 H, Plt Count 204, MPV 11.4 H, Immature Gran % (Auto) 0.30, Immature Gran # (Auto) 0.02, Neutrophils % 60.7, Lymphocytes % 24.8, Monocytes % 10.6 H, Eosinophils % 3.0, Basophils % 0.6, Nucleated RBC % 0.0, Neutrophils # 4.3, Lymphocytes # 1.76, Monocytes # 0.8, Eosinophils # 0.2, Absolute Basophils 0.0 10/22/20 06:12: Sodium 141, Plasma Sodium 141, Potassium 3.9, Chloride 104, Carbon Dioxide 29.1, Anion Gap 11.8, BUN 29 H, Creatinine 1.52 H, Est GFR (Non- Af Amer) 48 L, BUN/Creatinine Ratio 19.1, Random Glucose 98, Calcium 8.3, TSH 0.772 Discharge Location: Home Disposition: Home self-care Condition: Stable Discharge Activity: Activity as tolerated, Other - avoid outside activities for at least a week, due to heat Discharge Diet: General/regular food Referrals: Jassi Christensen MD [Primary Care Provider] - One Week Prescriptions (Any new or edited meds): Diltiazem HCl [Cardizem Cd] 120 mg PO Q24H #30 cap.sr.24h Transmission Status: Pending to [facility] Metoprolol Tartrate [Lopressor] 50 mg PO BID #60 tab Transmission Status: Pending to [facility] Complete Home Medications List: Complete Home Medication List: warfarin 2 mg tablet 2 mg PO MOWEFR 90 Days #180 tab 12/09/17 Cyclobenzaprine HCl 5 mg PO Q8H PRN 10/21/19 Warfarin Sodium [Coumadin] 4 mg PO SUTUTHSA 10/21/19 Ferrous Sulfate [Iron] 325 mg PO DAILY 10/25/19 acetaminophen 500 mg tablet 500 mg PO Q6H PRN 11/24/19 furosemide 20 mg tablet 20 mg PO DAILY #90 tab 06/04/20 Allopurinol [Zyloprim] 300 mg PO DAILY 09/12/20 enalapril maleate 10 mg tablet 10 mg PO DAILY #90 tab 10/02/20 escitalopram oxalate 10 mg tablet 10 mg PO DAILY #90 tab 10/03/20 metoprolol tartrate 50 mg tablet 50 mg PO Q12H #180 tab 10/18/20 omeprazole 40 mg capsule,delayed release 40 mg PO DAILY PRN #90 cap 10/18/20 Diltiazem HCl [Cardizem Cd] 120 mg PO Q24H #30 cap.sr.24h 10/22/20 Metoprolol Tartrate [Lopressor] 50 mg PO BID #60 tab 10/22/20 Warfarin Sodium [Coumadin] 2 mg PO SuMoWeFr@1700 tablet 10/22/20 Warfarin Sodium [Coumadin] 4 mg PO TuThSa@1700 tablet 10/22/20 Forms: Patient Portal Registration
[2020-10-22] MEDS: ESCITALOPRAM OXALATE 10 MG TAB PO SCH (08:28)
[2020-10-22] MEDS: METOPROLOL TARTRATE 50 MG TABLET PO SCH (08:29)
[2020-10-22] MEDS: FUROSEMIDE 20 MG TABLET PO SCH (08:29)
[2020-10-22] MEDS ORDERED: DILTIAZEM HCL 120 MG CAP.SR.24H PO SCH (09:00)
[2020-10-22 09:45] VITALS: BP 135/58
== END 2020-10-22 09:55 | disposition home or self-care (01) | DRG 309 ==
LOC: ER 14:25 → MS 14:25
PROVIDERS: ADMIT Family Medicine; ATTEND Family Medicine
DX: I13.0 Hypertensive heart and chronic kidney disease with heart failure and stage 1 through stage 4 chronic kidney disease, or unspecified chronic kidney disease; I48.91 Unspecified atrial fibrillation; N18.30 Chronic kidney disease, stage 3 unspecified; I50.9 Heart failure, unspecified; Z79.01 Long term (current) use of anticoagulants